=== PATIENT | male | born 1945 | race Caucasian/White ===

== ENCOUNTER 2020-07-21 00:02 | Observation (INO) | payer MEDICARE, SELFPAY ==
[2020-07-21] VITALS (15 sets, daily range): BP systolic 101–161; BP diastolic 58–106; PULSE 60–94; RESP 14–20; TEMP 36.6–37.1; O2SAT 91–100; BMI 22.1; BMI 21.4
--- NOTE | 2020-07-21 00:34 | CT_ITS ---
PROCEDURE: CT ABDOMEN PELVIS W CON CLINICAL INDICATION: distened abd. Abdominal tenderness and bloating COMPARISON: CT ABDPELW/O CT ABD PELVIS W/O CONTRAST from 12/10/[address] abdomen pelvis wo con from 03/10/2018 TECHNIQUE: IV Contrast: 75ML Isovue 370 Oral Contrast None Axial images obtained with sagittal and coronal reformats. All CT scans at the facility use one or more dose reduction, viz: automated exposure control, ma/kV adjustment per patient size (including targeted exams where dose is matched to indication, i.e. head), or iterative reconstruction technique. FINDINGS: LOWER THORAX: Consolidation is present in the lung bases posteriorly on both sides. There is elevated right hemidiaphragm with bowel interposition. ABDOMEN & PELVIS: The liver, spleen, adrenal glands, pancreas, have an unremarkable appearance. There is a 4 mm nonobstructing stone in the lower pole of the right kidney. Bilateral renal cysts are present the largest in the mid aspect of the left kidney anteriorly measuring up to 5 cm. No hydronephrosis. No ureteral calculi. There is a Siddiqui catheter present. There is diffuse gaseous distention of the large bowel extending from the rectum to the cecum [place] with redundancy of the colon. The appendix is not clearly delineated. There are scattered air-fluid levels within the colon.. Suprapubic catheter is present within a decompressed urinary bladder. There is scoliosis of the lumbar spine with pelvic tilt. Heterogeneous area of sclerosis involves the right iliac crest not significantly changed. IMPRESSION: Moderate diffuse distention of the colon with scattered air-fluid levels consistent with colonic ileus Bilateral lower lobe consolidation/volume loss posteriorly. Dictated by: Jose Raul Spencer MD 07/21/2020 06:46 Jose Raul Spencer MD in [place] 07/21/2020 06:46
--- NOTE | 2020-07-21 00:37 | HMH.EDNVD ---
ED Disposition Clinical Impression: Ileus, Pseudo-obstruction of colon, SIRS (systemic inflammatory response syndrome) Disposition: Admitted as Observation Condition on Discharge: Fair Instructions: DI for Acute Abdominal Pain Referrals: Rayshawn Monterroso MD [Primary Care Provider] - - Critical Care Critical Care Time: No Attestation: On 07/21/20, the high probability of a clinically significant, sudden or life threatening deterioration of the following system(s) required my full and direct attention, intervention and personal management. The time I documented below is in addition to time spent performing reported procedures but includes the following listed in this critical care notation. Medical Decision Making - Medical Records Medical records reviewed: Yes: I reviewed the patient's medical records. - Phi Inquiry Pt receiving controlled substance: No Vital Signs: 07/21/20 00:03 07/21/20 00:34 07/21/20 00:56 Pulse Rate [Left Radial] 94 H 79 71 Respiratory Rate 19 14 17 Blood Pressure [Right Arm] 148/100 H 122/79 118/73 Blood Pressure Mean [Right Arm] 116 93 88 Blood Pressure Source [Right Arm] Automatic Cuff Automatic Cuff Automatic Cuff Blood Pressure Position [Right Arm] Supine Sitting 02 Sat by Pulse Oximetry 100 96 96 Oxygen Delivery Method Room Air Room Air 07/21/20 02:03 07/21/20 02:30 Pulse Rate [Left Radial] 77 83 Respiratory Rate 16 Blood Pressure [Right Arm] 161/84 H 143/106 H Blood Pressure Mean [Right Arm] 109 118 Blood Pressure Source [Right Arm] Automatic Cuff Blood Pressure Position [Right Arm] Sitting Supine 02 Sat by Pulse Oximetry 95 95 Oxygen Delivery Method Room Air Room Air - Lab Data Lab results reviewed: Yes: I reviewed the patient's lab results. Lab Results 07/21/20 00:23: WBC 14.6 H, RBC 5.07, Hgb 15.8, Hct 48.3, MCV 95.2 H, MCH 31.2, MCHC 32.7, RDW 13.6, Plt Count 356, MPV 7.6, Neut % (Auto) 80.4 H, Lymph % (Auto) 12.8, [place] % (Auto) 5.6, Eos % (Auto) 0.8, Baso % (Auto) 0.3, Neut # (Auto) 11.7 H, Lymph # (Auto) 1.9, [place] # (Auto) 0.8, Eos # (Auto) 0.1, Baso # (Auto) 0.1, ESR 61 H 07/21/20 00:23: Sodium 137, Potassium 3.6, Chloride 97 L, Carbon Dioxide 27, Anion Gap 16.6 H, BUN 34 H, Creatinine 1.10, Estimated Creat Clear 57, Estimated GFR 65, Est GFR ( Amer) 79, Glucose 138 H, Calcium 10.3 H, Total Bilirubin 0.9, AST 27, ALT 15, Alkaline Phosphatase 89, C-Reactive Protein 73.6 H, Total Protein 9.4 H, Albumin 4.8, Globulin 4.6 H, Albumin/Globulin Ratio 1.0 L, Amylase 59, Lipase 83 07/21/20 00:23: Lactate 1.7 07/21/20 00:23: Procalcitonin 0.092 07/21/20 00:23: SARS-CoV-2 IgG Ab (Rapid) Positive A, SARS-CoV-2 IgM Ab (Rapid) Negative 07/21/20 02:14: Urine Color Yellow, Urine Appearance Slightly cloudy, Urine pH 6.0, Ur Specific [place] <= 1.005, Urine Protein 1+, Urine Glucose (UA) Negative, Urine Ketones Negative, Urine Blood 3+, Urine Nitrate Negative, Urine Bilirubin Negative, Urine Urobilinogen 0.2, Ur Leukocyte Esterase 1+ A, Urine RBC 5-10, Urine WBC 5-10, Ur Squamous Epith Cells 3-5, Amorphous Sediment 2+, Urine Bacteria 1+, Urine Mucus 1+ Result diagrams: 07/21/20 00:23 07/21/20 00:23 Orders (Tests/Meds): ED MEDICATIONS Generic Name Dose Route Start Last Admin Trade Name Freq PRN Reason Stop Dose Admin Sodium Chloride 1,000 mls @ 999 mls/hr 07/21/20 01:00 07/21/20 00:57 Sod Chlor 0.9% 1000ml Bag IV 07/21/20 02:00 999 mls/hr .Q1H1M INGRID Administration Discontinued Medications Generic Name Dose Route Start Last Admin Trade Name Freq PRN Reason Stop Dose Admin Bisacodyl 10 mg 07/21/20 02:11 07/21/20 02:12 Bisacodyl 10mg Supp RC 07/21/20 02:12 10 mg ONCE ONE Administration Iopamidol 75 ml 07/21/20 01:44 07/21/20 01:45 Iopamidol-370 (76%);100ml Bottle IV 07/21/20 01:45 75 ml ONCE ONE Administration Sodium Chloride 10 ml 07/21/20 01:44 07/21/20 01:45 Sodium Chloride 0.9% 10ml Syr (Rad Only) IV
--- NOTE | 2020-07-21 00:44 | PC.NURSE ---
pt at bedside. states to staff patient hasn't had a bath in two weeks. noted breakdown to perianal area. informed .
[2020-07-21 00:46] LABS: Basophils # 0.1 K/mm3 (0-0.2); Basophils % 0.3 % (0.1-2.0); Eosinophils # 0.1 K/mm3 (0.0-0.4); Eosinophils % 0.8 % (0.1-12.0); Hematocrit 48.3 % (42.0-52.0); Hemoglobin 15.8 g/dL (14.1-18.0); Lymphocytes # 1.9 K/mm3 (0.7-4.5); Lymphocytes % 12.8 % (10-50); Mean Corpuscular HGB Conc 32.7 g/dL (31.8-35.4); Mean Corpuscular Hemoglobin 31.2 pg (27.0-31.2); Mean Corpuscular Volume 95.2 fl (80-94); Mean Platelet Volume 7.6 fl (7.4-10.4); Monocytes # 0.8 K/mm3 (0.1-1.0); Monocytes % 5.6 % (1.7-9.3); Neutrophils # 11.7 K/mm3 (1.8-7.8); Neutrophils % 80.4 % (37.0-80.0); Platelet Count 356 K/mm3 (142-424); Red Blood Count 5.07 M/mm3 (4.60-6.20); Red Cell Distribution Width 13.6 % (11.5-17.5); White Blood Count 14.6 K/mm3 (4.8-10.8)
[2020-07-21 00:49] LABS: Alanine Aminotransferase 15 U/L (12-78); Albumin Level 4.8 g/dl (3.5-5.0); Alkaline Phosphatase 89 U/L (38-126); Amylase 59 U/L (30-110); Anion Gap 16.6 mEq/L (5-15); Aspartate Amino Transferase 27 U/L (17-59); Bilirubin,Total 0.9 mg/dl (0.2-1.3); Blood Urea Nitrogen 34 mg/dl (9-20); Calcium 10.3 mg/dl (8.4-10.2); Carbon Dioxide 27 mmol/L (22.0-30.0); Chloride 97 mmol/L (98-107); Creatinine Clearance Estimated 57 mL/min (50-200); Estimated Glomerular Filt Rate 65 ml/min (>60); GFR (African American) 79 ML/MIN (>60); Globulin 4.6 g/dL (1.3-3.2); Glucose 138 mg/dl (74-100); Lipase 83 U/L (23-300); Potassium 3.6 mmoL/L (3.5-5.1); Sodium 137 mmol/L (136-145); Total Protein,Serum 9.4 g/dl (6.3-8.2)
[2020-07-21 00:53] LABS: Lactic Acid 1.7 mmol/L (0.7-2.1)
[2020-07-21 00:55] LABS: C-Reactive Protein 73.6 mg/L (0-4)
[2020-07-21 01:09] LABS: Procalcitonin 0.092 ng/mL (0.0-2.0)
[2020-07-21 01:28] LABS: Coronavirus 19 IgG Antibody Positive (Negative); Coronavirus 19 IgM Antibody Negative (Negative)
[2020-07-21 01:31] LABS: Erythrocyte Sedimentation Rate 61 mm/hr (0-20)
--- NOTE | 2020-07-21 01:55 | PC.NURSE ---
pt back from RAD
[2020-07-21 02:23] LABS: Microscopic, Urine URINE MICROSCOPIC (MICROSCOPIC)
[2020-07-21 02:31] LABS: Bilirubin,Urine Negative (Negative); Blood, Urine 3+ (Negative); Color,Urine YELLOW (Yellow); Glucose,Urine (UA) Negative (Negative); Ketones,Urine Negative (Negative); Leukocyte Esterase,Urine 1+ (Negative); Nitrate,Urine Negative (Negative); Protein,Urine 1+ (Negative); Specific Gravity, Urine <= 1.005 (1.005-1.030); Urobilinogen,Urine 0.2 EU/dl (0.2)
[2020-07-21 02:38] LABS: Appearance,Urine Slightly Cloudy (Clear)
[2020-07-21 02:42] LABS: Amorphous Sediment,Urine 2+ /lpf; Bacteria,Urine 1+ /lpf; Mucus,Urine 1+ /lpf
--- NOTE | 2020-07-21 02:56 | PC.NURSE ---
discussing admitting patient with dr berman at this time
--- NOTE | 2020-07-21 03:10 | PC.NURSE ---
[facility]
--- NOTE | 2020-07-21 05:03 | PC.NURSE ---
PT ARRIVED TO FLOOR VIA STRETCHER @ 1811
--- NOTE | 2020-07-21 07:08 | P.CONPHA_ITS ---
[facility] Pharmacy VTE Monitoring - Patient Demographics Admission date: 07/21/20 Report Date: 07/21/20 Time: 07:08 Allergies/Adverse Reactions: Patient Allergies No Known Allergies Allergy (Verified 05/01/18 09:12) Height: 1.75 m Weight: 65.941 kg Patient Problems: Current Active Problems Ileus (Acute) Pseudo-obstruction of colon (Acute) SIRS (systemic inflammatory response syndrome) (Acute) - VTE Risk Labs: VTE Related Lab Results Hgb 15.8 g/dL (14.1-18.0) 07/21/20 00:23 Hct 48.3 % (42.0-52.0) 07/21/20 00:23 Plt Count 356 K/mm3 (142-424) 07/21/20 00:23 BUN 34 mg/dl (9-20) H 07/21/20 00:23 Creatinine 1.10 mg/dl (0.66-1.25) 07/21/20 00:23 Estimated Creat Clear 57 mL/min (50-200) 07/21/20 00:23 VTE Score: 4 VTE Risk Level: Low Risk - Prophylaxis VTE Prophylaxis Ordered?: Yes Types of VTE Prophylaxis: TEDS Knee High Location of Applied Device: Bilateral Lower Extremeties
--- NOTE | 2020-07-21 07:23 | PC.NURSE ---
Dr. Liu Notified
--- NOTE | 2020-07-21 07:34 | PC.NURSE ---
Pt is alert to self. Pt can answer yes and no questions but is not consistently answering them. All four extremities present w/ mild weakness. Lung sounds have audible wheezing noted t/o. Hyperactive bowel sounds in all 4 quads. Dark brown, loose stools noted this shift. remains @ bedside. Will continue to monitor.
--- NOTE | 2020-07-21 08:06 | PC.WOUNDNOTE ---
Wound Location: rt gluteus Length:3 cm Width:1 cm Inflammation/swelling Y/N:yes Pain and/or tenderness Y/N:yes Color: Clear [place] Red Yellow Odor Y/N:no
--- NOTE | 2020-07-21 08:08 | PC.WOUNDNOTE ---
Wound Location: rt elbow Length:2 cm Width:1.5 cm Inflammation/swelling Y/N:no Pain and/or tenderness Y/N:yes \ Color: [place] Red Odor Y/N:no
[2020-07-21 08:16] LABS: Basophils % 0.4 % (0.1-2.0); Eosinophils # 0.2 K/mm3 (0.0-0.4); Eosinophils % 1.4 % (0.1-12.0); Hematocrit 39.2 % (42.0-52.0); Lymphocytes # 1.6 K/mm3 (0.7-4.5); Lymphocytes % 14.2 % (10-50); Mean Corpuscular HGB Conc 30.8 g/dL (31.8-35.4); Mean Corpuscular Hemoglobin 29.3 pg (27.0-31.2); Mean Platelet Volume 7.7 fl (7.4-10.4); Monocytes # 0.7 K/mm3 (0.1-1.0); Monocytes % 6.2 % (1.7-9.3); Neutrophils # 8.6 K/mm3 (1.8-7.8); Neutrophils % 77.9 % (37.0-80.0); Platelet Count 278 K/mm3 (142-424); Red Blood Count 4.12 M/mm3 (4.60-6.20); Red Cell Distribution Width 13.7 % (11.5-17.5)
[2020-07-21 08:21] LABS: Hemoglobin 12.1 g/dL (14.1-18.0)
--- NOTE | 2020-07-21 08:27 | HMH.HP ---
*Admission Date: 07/21/20 <CarmineHeidi 07/21/20 08:33> *Chief complaint: Ileus <Rambo Lou07/21/20 08:33> *History of present illness: Mr. Herzog is a 75yo white male with history of hemorrhagic CVA with residual deficits, HTN, BPH, and PEG tube who is minimally verbal. He was brought to [facility] ED yesterday evening after his noticed increasing distention and firmness of his abdomen at home. His reported two loose stools home earlier in the day without vomiting. Upon arrival, he was painful with abdominal palpation. WBC was elevated at 14.6. CT of the abdomen and pelvis showed moderate diffuse distention of the colon with scattered air-fluid levels consistent with colonic ileus and bilateral lower lobe consolidation/volume loss posteriorly. He was admitted for further evaluation and surgical consultation. This morning, he is resting quietly. His bowels have moved. He denies any pain with abdominal palpation. <Heidi Lou 07/21/20 08:47> [facility] History Medical History: Reports:: BPH, Cerebrovascular Accident, Hypertension Denies:: Diabetes Mellitus Type 1, Diabetes Mellitus Type 2 <Rambo Lou07/21/20 08:33> *Have you ever received a pneumonia vaccine?: No <Rambo Lou07/21/20 08:33> *Have you received a flu vaccine this season?: No <Heidi Lou 07/21/20 08:33> Other Medical History: Reports: Arthritis <Rambo Lou07/21/20 08:33> Other Surgeries: Yes: Other <Heidi Lou 07/21/20 08:33> - *Social History Last grade of school completed: High school graduate <Heidi Lou 07/21/20 08:33> Smoking Status: Never smoker <Heidi Lou 07/21/20 08:33> Alcohol Intake: never <Heidi Lou 07/21/20 08:33> *Occupational Status:: disabled <Heidi Lou 07/21/20 08:33> Household Members: spouse <Heidi Lou 07/21/20 08:33> *Travel in the last 8 weeks: None <Heidi Lou 07/21/20 08:33> Family Hx:: Asthma, Stroke <Heidi Lou - 07/21/20 08:33> Review of Systems - Review of Systems Review of systems:: unable to obtain <Heidi Lou - 07/21/20 08:47> - *Gastrointestinal Reports abdominal pain, Reports change in stools, Reports loose stools <Heidi Lou 07/21/20 08:47> Comments: abdominal distention and firmness <Heidi Lou 07/21/20 08:47> - *Neurologic Denies seizure-like activity <Heidi Lou - 07/21/20 08:33> Comments: right sided residual CVA deficits <Heidi Lou 07/21/20 08:47> Meds Home Medications Medication Instructions Recorded Confirmed Type No Known Home Medications 07/21/20 07/21/20 History <Rayshawn Monterroso - 07/21/20 13:12> Allergies Allergy/AdvReac Type Severity Reaction Status Date / Time No Known Allergies Allergy Verified 05/01/18 09:12 <Rayshawn Monterroso - 07/21/20 13:12> Exam Vital signs and Labs for Last 24 Hours: Temp Pulse Resp BP Pulse Ox 98.2 F 71 20 129/69 96 07/21/20 07:33 07/21/20 07:33 07/21/20 08:40 07/21/20 07:33 07/21/20 07:33 Laboratory Results - last 24 hr 07/21/20 00:23: WBC 14.6 H, RBC 5.07, Hgb 15.8, Hct 48.3, MCV 95.2 H, MCH 31.2, MCHC 32.7, RDW 13.6, Plt Count 356, MPV 7.6, Neut % (Auto) 80.4 H, Lymph % (Auto) 12.8, [place] % (Auto) 5.6, Eos % (Auto) 0.8, Baso % (Auto) 0.3, Neut # (Auto) 11.7 H, Lymph # (Auto) 1.9, [place] # (Auto) 0.8, Eos # (Auto) 0.1, Baso # (Auto) 0.1, ESR 61 H 07/21/20 00:23: Sodium 137, Potassium 3.6, Chloride 97 L, Carbon Dioxide 27, Anion Gap 16.6 H, BUN 34 H, Creatinine 1.10, Estimated Creat Clear 57, Estimated GFR 65, Est GFR ( Amer) 79, Glucose 138 H, Calcium 10.3 H, Total Bilirubin 0.9, AST 27, ALT 15, Alkaline Phosphatase 89, C-Reactive Protein 73.6 H, Total Protein 9.4 H, Albumin 4.8, Globulin 4.6 H, Albumin/Globulin Ratio 1.0 L, Amylase 59, Lipase 83 07/21/20 00:23: Lactate 1.7 07/21/20 00:23: Procalcitonin 0.092 07/21/20 00:23: SARS-CoV-2 IgG Ab (Rapid) Positive A, SARS-CoV-2 IgM Ab (Rapid) Negative 07/21/20 02:14: Urine Color Yellow, Urine Appearance Slightly cloudy, Ur
--- NOTE | 2020-07-21 08:34 | XR_ITS ---
PROCEDURE: XR CHEST PORTABLE CLINICAL HISTORY: ileus Shortness of air COMPARISON: CR CXR2 CHEST-AP VIEW ONLY from 12/10/2015 CR CXR1 CHEST-PORTABLE from 12/12/2015 CR CXR1 CHEST-PORTABLE from 02/05/2016 FINDINGS: The cardiomediastinal silhouette and pulmonary vascularity are within normal limits. Patchy density is present in the right lung base medially consistent with an area of atelectasis or infiltrate. The right hemidiaphragm is slightly elevated with bowel interposition on the right. Left lung is clear. No acute bony abnormalities. IMPRESSION: Right basilar atelectasis or infiltrate. Dictated by: Jose Raul Spencer MD 07/21/2020 10:26 Jose Raul Spencer MD in [place] 07/21/2020 10:26
--- NOTE | 2020-07-21 08:40 | PC.NURSE ---
NO DISTRESS NOTED UPON ASSESSMENT. SUPRAPUBIC CATH IN PLACE DRAINING YELLOW URINE. PATIENT ABLE TO ANSWER YES/'NO QUESTIONS AT TIMES. NODS HEAD YES/NO FOR QUESTIONS. PT. DENIES PAIN. AT BEDSIDE. PATIENT LEGS CONTRACTED FROM STROKE. Q2 TURN FOR THIS REASON. PT. DOES LIKE TO BE ON RIGHT SIDE. NO DISTRESS NOTED. CALL LIGHT WITHIN REACH .
--- NOTE | 2020-07-21 08:53 | HMH.GSCON ---
*Admission Date: 07/21/20 *Reason for consult:: Colonic ileus *History of present illness: This is a 75-year-old gentleman seen in consultation from the service of Dr. Monterroso for evaluation regarding possible colonic ileus. He presents the emergency department overnight with increasing abdominal distention. Loose stools had also been noted per his . Since admission he has continued to have bowel function and his abdominal distention has improved. Reportedly, he continues to have very loose stools . Forwarded from admission H&P: Mr. Herzog is a 75yo white male with history of hemorrhagic CVA with residual deficits, HTN, BPH, and PEG tube who is minimally verbal. He was brought to [facility] ED yesterday evening after his noticed increasing distention and firmness of his abdomen at home. His reported two loose stools home earlier in the day without vomiting. Upon arrival, he was painful with abdominal palpation. WBC was elevated at 14.6. CT of the abdomen and pelvis showed moderate diffuse distention of the colon with scattered air-fluid levels consistent with colonic ileus and bilateral lower lobe consolidation/volume loss posteriorly. He was admitted for further evaluation and surgical consultation. This morning, he is resting quietly. His bowels have moved. He denies any pain with abdominal palpation. Review of Systems - Review of Systems Review of systems:: unable to obtain - *Neurologic Denies seizure-like activity [facility] History Medical History: Reports:: BPH, Cerebrovascular Accident, Hypertension Denies:: Diabetes Mellitus Type 1, Diabetes Mellitus Type 2 *Have you ever received a pneumonia vaccine?: No *Have you received a flu vaccine this season?: No Other Medical History: Reports: Arthritis Other Surgeries: Yes: Other - *Social History Last grade of school completed: High school graduate Smoking Status: Never smoker Alcohol Intake: never *Occupational Status:: disabled Household Members: spouse *Travel in the last 8 weeks: None Family Hx:: Asthma, Stroke Meds Home Medications Medication Instructions Recorded Confirmed Type No Known Home Medications 07/21/20 07/21/20 History Allergies Allergy/AdvReac Type Severity Reaction Status Date / Time No Known Allergies Allergy Verified 05/01/18 09:12 Exam Vital signs and Labs for Last 24 Hours: Temp Pulse Resp BP Pulse Ox 98.2 F 71 18 129/69 96 07/21/20 07:33 07/21/20 07:33 07/21/20 07:33 07/21/20 07:33 07/21/20 07:33 Laboratory Results - last 24 hr 07/21/20 00:23: WBC 14.6 H, RBC 5.07, Hgb 15.8, Hct 48.3, MCV 95.2 H, MCH 31.2, MCHC 32.7, RDW 13.6, Plt Count 356, MPV 7.6, Neut % (Auto) 80.4 H, Lymph % (Auto) 12.8, [place] % (Auto) 5.6, Eos % (Auto) 0.8, Baso % (Auto) 0.3, Neut # (Auto) 11.7 H, Lymph # (Auto) 1.9, [place] # (Auto) 0.8, Eos # (Auto) 0.1, Baso # (Auto) 0.1, ESR 61 H 07/21/20 00:23: Sodium 137, Potassium 3.6, Chloride 97 L, Carbon Dioxide 27, Anion Gap 16.6 H, BUN 34 H, Creatinine 1.10, Estimated Creat Clear 57, Estimated GFR 65, Est GFR ( Amer) 79, Glucose 138 H, Calcium 10.3 H, Total Bilirubin 0.9, AST 27, ALT 15, Alkaline Phosphatase 89, C-Reactive Protein 73.6 H, Total Protein 9.4 H, Albumin 4.8, Globulin 4.6 H, Albumin/Globulin Ratio 1.0 L, Amylase 59, Lipase 83 07/21/20 00:23: Lactate 1.7 07/21/20 00:23: Procalcitonin 0.092 07/21/20 00:23: SARS-CoV-2 IgG Ab (Rapid) Positive A, SARS-CoV-2 IgM Ab (Rapid) Negative 07/21/20 02:14: Urine Color Yellow, Urine Appearance Slightly cloudy, Urine pH 6.0, Ur Specific [place] <= 1.005, Urine Protein 1+, Urine Glucose (UA) Negative, Urine Ketones Negative, Urine Blood 3+, Urine Nitrate Negative, Urine Bilirubin Negative, Urine Urobilinogen 0.2, Ur Leukocyte Esterase 1+ A, Urine RBC 5-10, Urine WBC 5-10, Ur Squamous Epith Cells 3-5, Amorphous Sediment 2+, Urine Bacteria 1+, Urine Mucus 1+ 07/21/20 08:00: WBC 11.0 H, RBC 4.12 L, Hgb 12.1 L D, Hct 39.2 L, MCV 95.0 H, MCH 29.3, MCHC 30.8
[2020-07-21 09:35] LABS: Chloride 103 mmol/L (98-107); Sodium 136 mmol/L (136-145)
[2020-07-21 09:36] LABS: Potassium 3.6 mmoL/L (3.5-5.1)
[2020-07-21 09:39] LABS: Anion Gap 9.6 mEq/L (5-15); Blood Urea Nitrogen 31 mg/dl (9-20); Carbon Dioxide 27 mmol/L (22.0-30.0); Creatinine Clearance Estimated 60 mL/min (50-200); Estimated Glomerular Filt Rate 110 ml/min (>60); GFR (African American) 133 ML/MIN (>60); Glucose 92 mg/dl (74-100)
[2020-07-21 09:41] LABS: Calcium 8.7 mg/dl (8.4-10.2)
--- NOTE | 2020-07-21 19:48 | PC.NURSE ---
SUPRAPUBIC CATH IN [place] DRAINING CLEAR YELLOW URINE, PT DENIES PAIN THIS SHIFT, NO BM NOTED, HAS BEEN TURNED Q2 HOURS, NO NEEDS AT THIS TIME,
[2020-07-22 04:00] VITALS: BP 156/85; PULSE 74; RESP 20; TEMP 36.7; O2SAT 95
--- NOTE | 2020-07-22 04:22 | PC.NURSE ---
pt is alert to self and can answer yes or no. lungs diminshed t/o.suprapubic cath draining yellow urine. pt rested quietly this shift. at bedside
[2020-07-22 05:17] VITALS: BMI 21.8
--- NOTE | 2020-07-22 07:11 | HMH.GSPN ---
Subjective Patient reports: no new complaints, feels better (The patient states that she hopes we can go home soon .) Progress Note: A&P (1) Ileus Status: Acute Assessment and plan: Overall, he has shown improvement since admission. He will likely require long-term therapy for what is likely somewhat of a chronic colonic ileus. He would also likely benefit from outpatient colonoscopy in the relatively near future. (2) Pyuria Status: Acute (3) History of CVA with residual deficit Status: Acute (4) Pseudo-obstruction of colon Status: Acute (5) SIRS (systemic inflammatory response syndrome) Status: Acute (6) Diarrhea Status: Acute Assessment and plan: Follow-up diarrhea panel (7) Neurogenic bladder Status: Acute (8) Indwelling catheter present on admission Status: Acute (9) Pulmonary atelectasis Status: Acute Exam Vital signs and Labs for Last 24 Hours: Temp Pulse Resp BP Pulse Ox 98.1 F 74 20 156/85 H 95 07/22/20 04:00 07/22/20 04:00 07/22/20 04:00 07/22/20 04:00 07/22/20 04:00 Laboratory Results - last 24 hr 07/21/20 08:00: WBC 11.0 H, RBC 4.12 L, Hgb 12.1 L D, Hct 39.2 L, MCV 95.0 H, MCH 29.3, MCHC 30.8 L, RDW 13.7, Plt Count 278, MPV 7.7, Neut % (Auto) 77.9, Lymph % (Auto) 14.2, [place] % (Auto) 6.2, Eos % (Auto) 1.4, Baso % (Auto) 0.4, Neut # (Auto) 8.6 H, Lymph # (Auto) 1.6, [place] # (Auto) 0.7, Eos # (Auto) 0.2, Baso # (Auto) 0.0 07/21/20 08:00: Sodium 136, Potassium 3.6, Chloride 103, Carbon Dioxide 27, Anion Gap 9.6, BUN 31 H, Creatinine 0.70 D, Estimated Creat Clear 60, Estimated GFR 110, Est GFR ( Amer) 133 D, Glucose 92 D, Calcium 8.7 D I & O for Last 24 hours: Intake & Output 07/19/20 07/20/20 07/21/20 12/23/20 11:59 11:59 11:59 11:59 Intake Total 0 / 0 662 / 662 Output Total 875 / 875 Balance 0 / 0 -213 / -213 Weight 145 lb 6 oz 147 lb 7 oz Microbiology Reports for the Last 24 Hours: Microbiology 07/21/20 02:14 Urine,Clean Catch Urine Culture - Preliminary NO GROWTH AFTER 24 HOURS - Constitutional no acute distress - *Routine Respiratory Exam Absent: respiratory distress - *Routine Cardiovascular Exam Present: RRR
[2020-07-22 08:00] VITALS: BP 139/76; PULSE 80; RESP 18; TEMP 36.3; O2SAT 94
--- NOTE | 2020-07-22 08:00 | PC.NURSE ---
at bedside this am feeding pt meals, no needs at his time, will continue to monitor
--- NOTE | 2020-07-22 08:17 | HMH.ACPN2 ---
<Day Leon - Last Filed: 07/22/20 08:18> Internal Medicine - PN: Subj *Date: 07/22/20 *Time: 08:18 Interval history: Patient states he is feeling better today. He had a bowel movement last night but none today. His abdominal pain is better. He ate some breakfast and slept decently last night. He wants to go home today. Exam Vital signs and Labs for Last 24 Hours: Temp Pulse Resp BP Pulse Ox 97.4 F L 80 18 139/76 94 L 07/22/20 08:00 07/22/20 08:00 07/22/20 08:00 07/22/20 08:00 07/22/20 08:00 Laboratory Results - last 24 hr 07/21/20 08:00: WBC 11.0 H, RBC 4.12 L, Hgb 12.1 L D, Hct 39.2 L, MCV 95.0 H, MCH 29.3, MCHC 30.8 L, RDW 13.7, Plt Count 278, MPV 7.7, Neut % (Auto) 77.9, Lymph % (Auto) 14.2, [place] % (Auto) 6.2, Eos % (Auto) 1.4, Baso % (Auto) 0.4, Neut # (Auto) 8.6 H, Lymph # (Auto) 1.6, [place] # (Auto) 0.7, Eos # (Auto) 0.2, Baso # (Auto) 0.0 07/21/20 08:00: Sodium 136, Potassium 3.6, Chloride 103, Carbon Dioxide 27, Anion Gap 9.6, BUN 31 H, Creatinine 0.70 D, Estimated Creat Clear 60, Estimated GFR 110, Est GFR ( Amer) 133 D, Glucose 92 D, Calcium 8.7 D I & O for Last 24 hours: Intake & Output 07/19/20 07/20/20 07/21/20 07/22/20 11:59 11:59 11:59 11:59 Intake Total 0 / 0 662 / 662 Output Total 875 / 875 Balance 0 / 0 -213 / -213 Weight 145 lb 6 oz 147 lb 7 oz Microbiology Reports for the Last 24 Hours: Microbiology 07/21/20 02:14 Urine,Clean Catch Urine Culture - Preliminary NO GROWTH AFTER 24 HOURS - Constitutional no acute distress - *Routine Respiratory Exam Present: decreased breath sounds, rhonchi - *Routine Cardiovascular Exam Present: RRR - *Routine Abdominal Exam Present: soft, normoactive bowel sounds. Absent: tenderness - *Routine Extremities Exam Absent: cyanosis, clubbing, edema - *Routine Skin Exam Present: warm. Absent: rash - *Routine Neurological Exam Present: alert, oriented X3 Assessment and Plan (1) Ileus Status: Acute Category: Medical Code(s): K56.7 - Ileus, unspecified (2) Pyuria Status: Acute Category: Medical Code(s): R82.81 - Pyuria (3) History of CVA with residual deficit Status: Acute Category: Medical Code(s): I69.30 - Unspecified sequelae of cerebral infarction (4) Pseudo-obstruction of colon Status: Acute Category: Medical Code(s): K59.81 - Bc syndrome (5) SIRS (systemic inflammatory response syndrome) Status: Acute Category: Medical Code(s): R65.10 - Systemic inflammatory response syndrome (SIRS) of non-infectious origin without acute organ dysfunction (6) Diarrhea Status: Acute Category: Medical Code(s): R19.7 - Diarrhea, unspecified (7) Neurogenic bladder Status: Acute Category: Medical Code(s): N31.9 - Neuromuscular dysfunction of bladder, unspecified (8) Indwelling catheter present on admission Status: Acute Category: Medical Code(s): Z96.0 - Presence of urogenital implants (9) Pulmonary atelectasis Status: Acute Category: Medical Code(s): J98.11 - Atelectasis - Assessment and plan all Dx Assessment and Plan for all problems:: Patient stable to be discharged home today. He will need his Siddiqui replaced before going home and will need an order for continued home health. He will be discharged home on a [place]. <Rayshawn Monterroso - Last Filed: 07/22/20 12:22> Internal Medicine - PN: Subj *Date: 07/22/20 *Time: 12:20 Exam Vital signs and Labs for Last 24 Hours: Temp Pulse Resp BP Pulse Ox 97.4 F L 80 18 139/76 94 L 07/22/20 08:00 07/22/20 08:00 07/22/20 08:00 07/22/20 08:00 07/22/20 08:00 I & O for Last 24 hours: Intake & Output 07/20/20 07/21/20 07/22/20 07/23/20 11:59 11:59 11:59 11:59 Intake Total 0 / 0 1022 / 1022 Output Total 875 / 875 Balance 0 / 0 147 / 147 Weight 145 lb 6 oz 147 lb 7 oz Microbiology Reports for the Last 24 Hours:
--- NOTE | 2020-07-22 09:16 | SW/DCPLANNER ---
Addendum entered by Jodi Beaulieu 07/22/20 10:29: Ta with [facility] has stated that patient information was received and home health services will resume tomorrow. I have made patients nurse aware of situation. Patient will discharge home today. Original Note: This patient will discharge home with his today. provides all care for this patient at home and no further DME is needed. Patient is currently established with [facility]. Patient information has been faxed to [facility]. I will follow up once patient information is reviewed.
--- NOTE | 2020-07-22 12:50 | PC.NURSE ---
HOME HEALTH TO PROVIDE CATHETER CARE FOR SUPRA PUBIC CATHETER.
--- NOTE | 2020-07-22 16:28 | HMH.DCSUM ---
General - General Admission date:: 07/21/20 <Rayshawn Monterroso - 08/02/20 22:23> 07/21/20 <Day Leon - 07/22/20 16:33> Discharge date: 07/22/20 <Day Leon - 07/22/20 16:33> HPI HPI: Mr. Herzog is a 75yo white male with history of hemorrhagic CVA with residual deficits, HTN, BPH, and PEG tube who is minimally verbal. He was brought to [facility] ED yesterday evening after his noticed increasing distention and firmness of his abdomen at home. His reported two loose stools home earlier in the day without vomiting. Upon arrival, he was painful with abdominal palpation. WBC was elevated at 14.6. CT of the abdomen and pelvis showed moderate diffuse distention of the colon with scattered air-fluid levels consistent with colonic ileus and bilateral lower lobe consolidation/volume loss posteriorly. He was admitted for further evaluation and surgical consultation. This morning, he is resting quietly. His bowels have moved. He denies any pain with abdominal palpation. <Day Leon - 07/22/20 16:33> Hospital Course Hospital Course: His abdominal exam improved after the patient received an enema. The etiology of his ileus was unclear but was possibly related to infection. A diarrhea panel was ordered. He also had some pyuria and a urine culture was ordered as well. His CT scan did make some note of consolidation in the lower lung mann and he is known to have some bronchiectasis. A repeat chest x-ray was ordered he was started on Rocephin and surgery was consulted. His chest x-ray showed right basilar atelectasis or infiltrate. He was seen in consultation by Dr. Liu who felt there was no immediate indication for endoscopic decompression. He thought the patient should get suppositories, enemas, or digital stimulation as needed. By 07/22/2020, the patient was feeling better. He had had a bowel movement and his abdominal pain improved. He was able to eat and sleep and wanted to go home. His urine showed no growth after [address] Liu felt he may have somewhat of a chronic colonic ileus and would benefit fit from an outpatient colonoscopy in the relatively near future. The patient was stable to be discharged home and he was sent home on Zithromax for 5 days due to the infiltrate noted on chest x-ray. <CarolynDay - 07/22/20 16:33> Objective Vital signs: Temp Pulse Resp BP Pulse Ox 97.4 F L 80 18 139/76 94 L 07/22/20 08:00 07/22/20 08:00 07/22/20 08:00 07/22/20 08:00 07/22/20 08:00 <Rayshawn Monterroso - 08/02/20 22:23> Temp Pulse Resp BP Pulse Ox 97.4 F L 80 18 139/76 94 L 07/22/20 08:00 07/22/20 08:00 07/22/20 08:00 07/22/20 08:00 07/22/20 08:00 <Day Leon - 07/22/20 16:33> Narrative: - Constitutional no acute distress - *Routine Respiratory Exam Present: decreased breath sounds, rhonchi - *Routine Cardiovascular Exam Present: RRR - *Routine Abdominal Exam Present: soft, normoactive bowel sounds. Absent: tenderness - *Routine Extremities Exam Absent: cyanosis, clubbing, edema - *Routine Skin Exam Present: warm. Absent: rash - *Routine Neurological Exam Present: alert, oriented X3 <Day Leon - 07/22/20 16:33> Results Labs on day of discharge: Preliminary micro results at discharge 07/21/20 02:14 Urine Culture - Preliminary Urine,Clean Catch <Day Leon - 07/22/20 16:33> DS: Diagnosis - Discharge Diagnosis (1) Ileus Status: Acute (2) Pyuria Status: Acute (3) History of CVA with residual deficit Status: Acute (4) Pseudo-obstruction of colon Status: Acute (5) SIRS (systemic inflammatory response syndrome) Status: Acute (6) Diarrhea Status: Acute (7) Neurogenic bladder Status: Acute (8) Indwelling catheter present on admission Status: Acute (9) Pulmonary atelectasis Status: Acute (10) Pneumonia Status: Acute <Day Leon - 07/22/20 1
== END 2020-07-22 12:52 | disposition home health service (06) ==
LOC: ER 03:14 → 2ND 03:29
PROVIDERS: Admitting Provider Family Medicine; Emergency Provider Emergency Medicine; PCP Family Medicine; Visit Provider Family Medicine
DX: K56.7 Ileus, unspecified (principal); N31.9 Neuromuscular dysfunction of bladder, unspecified; R65.10 Systemic inflammatory response syndrome (SIRS) of non-infectious origin without acute organ dysfunction; R19.7 Diarrhea, unspecified; I10 Essential (primary) hypertension; K59.81 Ogilvie syndrome; J98.11 Atelectasis; J18.9 Pneumonia, unspecified organism; N40.0 Benign prostatic hyperplasia without lower urinary tract symptoms; Z93.1 Gastrostomy status; I69.151 Hemiplegia and hemiparesis following nontraumatic intracerebral hemorrhage affecting right dominant side; I69.120 Aphasia following nontraumatic intracerebral hemorrhage
CPT/HCPCS: 36415; 71045; 74177; 80048; 80053; 81001; 82150; 83605; 83690; 84145; 85025; 85651; 86140; 86328; 87040; 87086; 87088; 87186; 99284; G0378; Q9967

== ENCOUNTER 2021-01-11 13:26 | Inpatient (IN) | payer MEDICARE, SELFPAY ==
[2021-01-11] VITALS (12 sets, daily range): BP systolic 96–163; BP diastolic 55–90; PULSE 54–77; RESP 16–20; TEMP 36.2–38.3; O2SAT 91–98; BMI 21.4; BMI 24.2
[2021-01-11 13:42] LABS: Microscopic, Urine URINE MICROSCOPIC (MICROSCOPIC)
[2021-01-11 13:47] LABS: Appearance,Urine CLOUDY (Clear); Bilirubin,Urine Negative (Negative); Blood, Urine 3+ (Negative); Color,Urine DK YELLOW (Yellow); Glucose,Urine (UA) Negative (Negative); Ketones,Urine Negative (Negative); Leukocyte Esterase,Urine 2+ (Negative); Nitrate,Urine Negative (Negative); PH,Urine 7.5 (5.0-8.5); Protein,Urine 2+ (Negative)
[2021-01-11 14:12] LABS: Basophils % 0.1 % (0.1-2.0); Eosinophils % 0.2 % (0.1-12.0); Hematocrit 42.7 % (42.0-52.0); Hemoglobin 14.6 g/dL (14.1-18.0); Lymphocytes # 0.2 K/mm3 (0.7-4.5); Lymphocytes % 1.9 % (10-50); Mean Corpuscular HGB Conc 34.3 g/dL (31.8-35.4); Mean Corpuscular Hemoglobin 31.1 pg (27.0-31.2); Mean Corpuscular Volume 90.5 fl (80-94); Mean Platelet Volume 7.7 fl (7.4-10.4); Monocytes # 0.4 K/mm3 (0.1-1.0); Monocytes % 2.7 % (1.7-9.3); Neutrophils # 12.2 K/mm3 (1.8-7.8); Platelet Count 155 K/mm3 (142-424); Red Blood Count 4.72 M/mm3 (4.60-6.20); Red Cell Distribution Width 14.2 % (11.5-17.5); White Blood Count 12.9 K/mm3 (4.8-10.8)
[2021-01-11 14:13] LABS: Chloride 100 mmol/L (98-107); Sodium 137 mmol/L (136-145)
[2021-01-11 14:14] LABS: RBC,Urine TNTC #/hpf (0-3); WBC,Urine TNTC #/hpf (0-3)
[2021-01-11 14:15] LABS: Blood Urea Nitrogen 34 mg/dl (9-20); Creatinine Clearance Estimated 32 mL/min (50-200); Estimated Glomerular Filt Rate 35 ml/min (>60); GFR (African American) 42 ML/MIN (>60)
[2021-01-11 14:15] LABS: Bacteria,Urine 1+ /lpf; Squamous Epithelial Cell,Urine Occasional #/hpf (0-5)
[2021-01-11 14:16] LABS: Alanine Aminotransferase 20 U/L (12-78); Albumin Level 3.9 g/dl (3.5-5.0); Albumin/Globulin Ratio 1.1 (1.1-1.8); Alkaline Phosphatase 83 U/L (38-126); Anion Gap 13.5 mEq/L (5-15); Aspartate Amino Transferase 29 U/L (17-59); Bilirubin,Total 0.9 mg/dl (0.2-1.3); Calcium 8.3 mg/dl (8.4-10.2); Carbon Dioxide 26 mmol/L (22.0-30.0); Globulin 3.6 g/dL (1.3-3.2); Glucose 148 mg/dl (74-100); Total Protein,Serum 7.5 g/dl (6.3-8.2)
[2021-01-11 14:20] LABS: Lactic Acid 2.4 mmol/L (0.7-2.1)
[2021-01-11 14:21] LABS: MANUAL DIFFERENTIAL MANUAL DIFFERENTIAL (MANUAL DIFF)
[2021-01-11 14:22] LABS: Potassium 2.5 mmoL/L (3.5-5.1)
--- NOTE | 2021-01-11 14:27 | HMH.EDFEV ---
ED Disposition Clinical Impression: Hypokalemia Sepsis Qualifiers: Sepsis type: sepsis due to unspecified organism Sepsis acute organ dysfunction status: without acute organ dysfunction Qualified Code(s): A41.9 - Sepsis, unspecified organism UTI (urinary tract infection) Qualifiers: Urinary tract infection type: catheter-associated UTI Indwelling urinary catheter type: indwelling urethral catheter Encounter type: initial encounter Qualified Code(s): T83.511A - Infection and inflammatory reaction due to indwelling urethral catheter, initial encounter; N39.0 - Urinary tract infection, site not specified Disposition: Admitted As Inpatient Condition on Discharge: Fair Referrals: Rayshawn Monterroso MD [Primary Care Provider] - - Critical Care Critical Care Time: No Attestation: On 01/11/21, the high probability of a clinically significant, sudden or life threatening deterioration of the following system(s) required my full and direct attention, intervention and personal management. The time I documented below is in addition to time spent performing reported procedures but includes the following listed in this critical care notation. Medical Decision Making - Medical Records Medical records reviewed: Yes: I reviewed the patient's medical records. - Phi Inquiry Pt receiving controlled substance: No Vital Signs: 01/11/21 13:28 01/11/21 14:30 Temperature 101 F H Temperature Source Oral Pulse Rate 74 Pulse Rate [Radial] 76 Respiratory Rate 20 Blood Pressure 143/77 H Blood Pressure [Right Arm] 163/86 H Blood Pressure Mean [Right Arm] 111 Blood Pressure Position [Right Arm] Sitting 02 Sat by Pulse Oximetry 91 L 98 Oxygen Delivery Method Room Air - Lab Data Lab Results 01/11/21 13:25: Urine Color Dk yellow, Urine Appearance Cloudy, Urine pH 7.5, Ur Specific [place] 1.020, Urine Protein 2+, Urine Glucose (UA) Negative, Urine Ketones Negative, Urine Blood 3+, Urine Nitrate Negative, Urine Bilirubin Negative, Urine Urobilinogen 1.0, Ur Leukocyte Esterase 2+ A, Urine RBC Tntc, Urine WBC Tntc, Ur Squamous Epith Cells Occasional, Urine Bacteria 1+ 01/11/21 13:40: WBC 12.9 H, RBC 4.72, Hgb 14.6, Hct 42.7, MCV 90.5, MCH 31.1, MCHC 34.3, RDW 14.2, Plt Count 155, MPV 7.7, Neut % (Auto) 95.0 H, Lymph % (Auto) 1.9 L, [place] % (Auto) 2.7, Eos % (Auto) 0.2, Baso % (Auto) 0.1, Neut # (Auto) 12.2 H, Lymph # (Auto) 0.2 L, [place] # (Auto) 0.4, Eos # (Auto) 0.0, Baso # (Auto) 0.0, Total Counted 100, Neutrophils % (Manual) 91 H, Band Neutrophils % 6.0, Lymphocytes % (Manual) 3 L, Platelet Estimate Normal, RBC Morphology Normal 01/11/21 13:40: Sodium 137, Potassium 2.5 L*, Chloride 100, Carbon Dioxide 26, Anion Gap 13.5, BUN 34 H, Creatinine 1.90 H, Estimated Creat Clear 32, Estimated GFR 35 L, Est GFR ( Amer) 42 L, Glucose 148 H, Calcium 8.3 L, Total Bilirubin 0.9, AST 29, ALT 20, Alkaline Phosphatase 83, Total Protein 7.5, Albumin 3.9, Globulin 3.6 H, Albumin/Globulin Ratio 1.1 01/11/21 13:40: Lactate 2.4 H Result diagrams: 01/11/21 13:40 01/11/21 13:40 Orders (Tests/Meds): ED MEDICATIONS Generic Name Dose Route Start Last Admin Trade Name Freq PRN Reason Stop Dose Admin Sodium Chloride 1,000 mls @ 999 mls/hr 01/11/21 14:15 01/11/21 14:20 Sod Chlor 0.9% 1000ml Bag IV 01/11/21 15:15 999 mls/hr .Q1H1M INGRID Administration Ceftriaxone Sodium 1 gm/ 50 mls @ 100 mls/hr 01/11/21 14:30 01/11/21 14:56 Sodium Chloride IV 01/25/21 14:29 100 mls/hr Q24H INGRID Administration Protocol Discontinued Medications Generic Name Dose Route Start Last Admin Trade Name Freq PRN Reason Stop Dose Admin Acetaminophen 1,000 mg 01/11/21 14:26 01/11/21 14:56 Acetaminophen 500mg Tab PO 01/11/21 14:27 1,000 mg ONCE ONE Administration Potassium Chloride 60 meq 01/11/21 14:26 01/11/21 14:56 Potassium Chloride 20meq Tab PO 01/11/21 14:27 60 meq ONCE ONE Administration ORDERS Ca
[2021-01-11 14:41] LABS: Lymphocytes % 3 % (10-50); Neutrophils % 91 % (42-76); Platelet Estimate Normal; RBC Morphology Normal; Total Cells Counted 100
--- NOTE | 2021-01-11 14:50 | PC.NURSE ---
paging dr nichole
[2021-01-11 14:57] LABS: Coronavirus 19, PCR Not Detected (NotDetected); Influenza A, PCR Not Detected (NotDetected); Influenza B, PCR Not Detected (NotDetected)
--- NOTE | 2021-01-11 15:17 | XR_ITS ---
PROCEDURE: XR CHEST PORTABLE CLINICAL HISTORY: cough COMPARISON: 07/21/2020 FINDINGS: Heart size normal. Mild elevation of the right hemidiaphragm. Mild bibasilar atelectasis versus less likely infiltrate. No pleural effusion or pneumothorax. No acute bony abnormality. IMPRESSION: Mild bibasilar atelectasis versus less likely infiltrate. Otherwise unremarkable portable chest. Dictated by: Clyde Dc 01/11/2021 15:37 Clyde Dc in OV 01/11/2021 15:37
--- NOTE | 2021-01-11 16:40 | PC.NURSE ---
report called to floor
--- NOTE | 2021-01-11 18:01 | HMH.ACPN2 ---
Internal Medicine - PN: Subj *Date: 01/11/21 *Time: 18:01 Interval history: Mr. Herzog is a 75-year-old white male with a history of hypertension, previous hemorrhagic CVA with significant residual deficits, BPH, and chronic indwelling Siddiqui catheter who is followed routinely by home health for medical monitoring and changing his catheter monthly. Family reports that over the past couple of days he has seemed weaker and has not been eating as well. He had one episode of vomiting yesterday. He started running fever as high as 102 yesterday. His home health nurse visited this morning and noticed that the urine in his catheter bag was purple and referred him to the ER for further evaluation. On evaluation in the emergency room, urinalysis confirmed a urinary tract infection. CBC showed an elevated white blood cell count over 12,000. Lactate was elevated at 2.4. Electrolytes showed a low potassium of 2.4. He has received oral and IV potassium replacement in the emergency room and was started on IV Rocephin and is subsequent admitted for further evaluation and treatment. Exam Vital signs and Labs for Last 24 Hours: Temp Pulse Resp BP Pulse Ox 97.2 F L 67 16 130/71 98 01/11/21 17:19 01/11/21 17:19 01/11/21 17:19 01/11/21 17:19 01/11/21 17:19 Laboratory Results - last 24 hr 01/11/21 13:25: Urine Color Dk yellow, Urine Appearance Cloudy, Urine pH 7.5, Ur Specific [place] 1.020, Urine Protein 2+, Urine Glucose (UA) Negative, Urine Ketones Negative, Urine Blood 3+, Urine Nitrate Negative, Urine Bilirubin Negative, Urine Urobilinogen 1.0, Ur Leukocyte Esterase 2+ A, Urine RBC Tntc, Urine WBC Tntc, Ur Squamous Epith Cells Occasional, Urine Bacteria 1+ 01/11/21 13:40: WBC 12.9 H, RBC 4.72, Hgb 14.6, Hct 42.7, MCV 90.5, MCH 31.1, MCHC 34.3, RDW 14.2, Plt Count 155, MPV 7.7, Neut % (Auto) 95.0 H, Lymph % (Auto) 1.9 L, [place] % (Auto) 2.7, Eos % (Auto) 0.2, Baso % (Auto) 0.1, Neut # (Auto) 12.2 H, Lymph # (Auto) 0.2 L, [place] # (Auto) 0.4, Eos # (Auto) 0.0, Baso # (Auto) 0.0, Total Counted 100, Neutrophils % (Manual) 91 H, Band Neutrophils % 6.0, Lymphocytes % (Manual) 3 L, Platelet Estimate Normal, RBC Morphology Normal 01/11/21 13:40: Sodium 137, Potassium 2.5 L*, Chloride 100, Carbon Dioxide 26, Anion Gap 13.5, BUN 34 H, Creatinine 1.90 H, Estimated Creat Clear 32, Estimated GFR 35 L, Est GFR ( Amer) 42 L, Glucose 148 H, Calcium 8.3 L, Total Bilirubin 0.9, AST 29, ALT 20, Alkaline Phosphatase 83, Total Protein 7.5, Albumin 3.9, Globulin 3.6 H, Albumin/Globulin Ratio 1.1 01/11/21 13:40: Lactate 2.4 H 01/11/21 14:49: SARS-CoV-2 (PCR) Not detected, Influenza A Untype (PCR) Not detected, Influenza Type B (PCR) Not detected I & O for Last 24 hours: Intake & Output 01/09/21 01/10/21 01/11/21 01/12/21 11:59 11:59 11:59 11:59 Weight 164 lb 1 oz Narrative: He is lying comfortably in bed. He is awake and alert but nonverbal. He does shake his head yes and no appropriately to questions. Two daughters are at the bedside and relate his history. Mucous membranes are moist. Lungs are clear anteriorly. Breath sounds diminished in the bases. Heart is regular with no ectopy. Abdomen is soft and nondistended with hyperactive bowel sounds. No suprapubic tenderness. Siddiqui in place and draining dark yellow urine. Remedies no edema. Assessment and Plan (1) Hypokalemia Status: Acute Category: Medical Code(s): E87.6 - Hypokalemia (2) UTI (urinary tract infection) Status: Acute Qualifiers: Urinary tract infection type: catheter-associated UTI Indwelling urinary catheter type: indwelling urethral catheter Encounter type: initial encounter Qualified Code(s): T83.511A - Infection and inflammatory reaction due to indwelling urethral catheter, initial encounter; N39.0 - Urinary tract infection, site not specified Category: Medical Code(s): N39.0 - Urinary tract infection, site not specified (3) History of CV
[2021-01-11 18:03] LABS: Reflex Lactic Add Lactic Reflex
[2021-01-11 18:33] LABS: Lactic Acid Follow Up (RFLX 1) 1.4 mmol/L (0.7-2.1)
--- NOTE | 2021-01-11 18:46 | PC.WOUNDNOTE ---
Reddened area to bilateral buttocks Quarter-sized skin tear to RT thigh
--- NOTE | 2021-01-12 03:37 | PC.NURSE ---
PT IS ABLE TO RESPOND TO COMMANDS, BUT IS NONVERBAL. PT IS NOW ON RA, TOLERATING WELL. PT TURNED Q2H THIS SHIFT. PT HAS EPISODES OF INCONTINENCE TO BOWELS, DIARRHEA NOTED. FC PRESENT DRAINING DARK YELLOW URINE. PT HAS HAD NO C/O PAIN/NA/VO. HAS BEEN AFEBRILE. DAUGHTER AT BEDSIDE. VSS WILL CONTINUE TO MONITOR.
[2021-01-12 03:45] VITALS: BP 152/82; PULSE 62; RESP 16; TEMP 36.4; O2SAT 93
[2021-01-12 05:23] VITALS: BMI 24.3
[2021-01-12 06:08] LABS: Basophils % 0.2 % (0.1-2.0); Eosinophils # 0.2 K/mm3 (0.0-0.4); Hematocrit 35.7 % (42.0-52.0); Lymphocytes # 0.6 K/mm3 (0.7-4.5); Lymphocytes % 7.2 % (10-50); Mean Corpuscular HGB Conc 34.1 g/dL (31.8-35.4); Mean Corpuscular Hemoglobin 30.9 pg (27.0-31.2); Mean Corpuscular Volume 90.6 fl (80-94); Monocytes # 0.4 K/mm3 (0.1-1.0); Monocytes % 4.8 % (1.7-9.3); Neutrophils # 7.3 K/mm3 (1.8-7.8); Neutrophils % 85.8 % (37.0-80.0); Platelet Count 118 K/mm3 (142-424); Red Blood Count 3.94 M/mm3 (4.60-6.20); White Blood Count 8.5 K/mm3 (4.8-10.8)
[2021-01-12 06:18] LABS: MANUAL DIFFERENTIAL MANUAL DIFFERENTIAL (MANUAL DIFF)
[2021-01-12 06:19] LABS: Hemoglobin 13.6 g/dL (14.1-18.0)
[2021-01-12 06:24] LABS: Chloride 106 mmol/L (98-107); Sodium 137 mmol/L (136-145)
[2021-01-12 06:27] LABS: Alanine Aminotransferase 13 U/L (12-78); Albumin Level 2.8 g/dl (3.5-5.0); Albumin/Globulin Ratio 0.9 (1.1-1.8); Alkaline Phosphatase 55 U/L (38-126); Anion Gap 8.5 mEq/L (5-15); Aspartate Amino Transferase 25 U/L (17-59); Bilirubin,Total 0.4 mg/dl (0.2-1.3); Blood Urea Nitrogen 29 mg/dl (9-20); Calcium 7.6 mg/dl (8.4-10.2); Carbon Dioxide 25 mmol/L (22.0-30.0); Creatinine Clearance Estimated 68 mL/min (50-200); Estimated Glomerular Filt Rate 82 ml/min (>60); GFR (African American) 100 ML/MIN (>60); Glucose 89 mg/dl (74-100); Total Protein,Serum 5.8 g/dl (6.3-8.2)
[2021-01-12 07:06] LABS: Potassium 2.5 mmoL/L (3.5-5.1)
[2021-01-12 07:30] VITALS: PULSE 72; O2SAT 91
--- NOTE | 2021-01-12 07:37 | HMH.PHAVTE ---
[facility] Pharmacy VTE Monitoring - Patient Demographics Admission date: 01/11/21 Report Date: 01/12/21 Time: 07:37 Allergies/Adverse Reactions: Patient Allergies No Known Allergies Allergy (Verified 05/01/18 09:12) Height: 1.75 m Weight: 74.644 kg Patient Problems: Current Active Problems UTI (urinary tract infection) (Acute) History of CVA with residual deficit (Acute) Neurogenic bladder (Acute) Indwelling catheter present on admission (Acute) Sepsis (Acute) Hypokalemia (Acute) - VTE Risk Labs: VTE Related Lab Results Hgb 13.6 g/dL (14.1-18.0) L 01/12/21 05:58 Hct 35.7 % (42.0-52.0) L 01/12/21 05:58 Plt Count 118 K/mm3 (142-424) L 01/12/21 05:58 BUN 29 mg/dl (9-20) H 01/12/21 05:58 Creatinine 0.90 mg/dl (0.66-1.25) D 01/12/21 05:58 Estimated Creat Clear 68 mL/min (50-200) 01/12/21 05:58 Was VTE Risk Assessment Performed: Yes VTE Score: 4 VTE Risk Level: Low Risk - Prophylaxis VTE Prophylaxis Ordered?: Yes Types of VTE Prophylaxis: TEDS Knee High, Pharmacological Location of Applied Device: Bilateral Lower Extremeties Pharmacologic Type: Enoxaparin
[2021-01-12 07:40] LABS: Lymphocytes % 4 % (10-50); Monocytes % 1 % (2-9); Neutrophils % 95 % (42-76); Platelet Estimate Normal; RBC Morphology Normal; Total Cells Counted 100
[2021-01-12 08:00] VITALS: BP 159/82; PULSE 72; RESP 18; TEMP 37.1; O2SAT 91
--- NOTE | 2021-01-12 08:31 | HMH.PHACONS ---
- Pharmacy Consult Date: 01/12/21 Time: 08:31 Referring provider: DR. ANDERSON Reason for Consult:: VANCOMYCIN DOSING Allergies and ADEs:: Allergies Allergy/AdvReac Type Severity Reaction Status Date / Time No Known Allergies Allergy Verified 05/01/18 09:12 Home Medications:: Home Medications Medication Instructions Recorded Confirmed Type No Known Home Medications 01/11/21 01/11/21 History Height: 1.75 m Weight: 74.644 kg Laboratory Results:: Laboratory Results - last 24 hr 01/11/21 13:25: Urine Color Dk yellow, Urine Appearance Cloudy, Urine pH 7.5, Ur Specific [place] 1.020, Urine Protein 2+, Urine Glucose (UA) Negative, Urine Ketones Negative, Urine Blood 3+, Urine Nitrate Negative, Urine Bilirubin Negative, Urine Urobilinogen 1.0, Ur Leukocyte Esterase 2+ A, Urine RBC Tntc, Urine WBC Tntc, Ur Squamous Epith Cells Occasional, Urine Bacteria 1+ 01/11/21 13:40: WBC 12.9 H, RBC 4.72, Hgb 14.6, Hct 42.7, MCV 90.5, MCH 31.1, MCHC 34.3, RDW 14.2, Plt Count 155, MPV 7.7, Neut % (Auto) 95.0 H, Lymph % (Auto) 1.9 L, [place] % (Auto) 2.7, Eos % (Auto) 0.2, Baso % (Auto) 0.1, Neut # (Auto) 12.2 H, Lymph # (Auto) 0.2 L, [place] # (Auto) 0.4, Eos # (Auto) 0.0, Baso # (Auto) 0.0, Total Counted 100, Neutrophils % (Manual) 91 H, Band Neutrophils % 6.0, Lymphocytes % (Manual) 3 L, Platelet Estimate Normal, RBC Morphology Normal 01/11/21 13:40: Sodium 137, Potassium 2.5 L*, Chloride 100, Carbon Dioxide 26, Anion Gap 13.5, BUN 34 H, Creatinine 1.90 H, Estimated Creat Clear 32, Estimated GFR 35 L, Est GFR ( Amer) 42 L, Glucose 148 H, Calcium 8.3 L, Total Bilirubin 0.9, AST 29, ALT 20, Alkaline Phosphatase 83, Total Protein 7.5, Albumin 3.9, Globulin 3.6 H, Albumin/Globulin Ratio 1.1 01/11/21 13:40: Lactate 2.4 H 01/11/21 14:49: SARS-CoV-2 (PCR) Not detected, Influenza A Untype (PCR) Not detected, Influenza Type B (PCR) Not detected 01/11/21 18:15: Lactate 1.4 01/12/21 05:58: WBC 8.5 D, RBC 3.94 L, Hgb 13.6 L, Hct 35.7 L, MCV 90.6, MCH 30.9, MCHC 34.1, RDW 14.0, Plt Count 118 L, MPV 8.0, Neut % (Auto) 85.8 H, Lymph % (Auto) 7.2 L, [place] % (Auto) 4.8, Eos % (Auto) 2.0, Baso % (Auto) 0.2, Neut # (Auto) 7.3, Lymph # (Auto) 0.6 L, [place] # (Auto) 0.4, Eos # (Auto) 0.2, Baso # (Auto) 0.0, Total Counted 100, Neutrophils % (Manual) 95 H, Lymphocytes % (Manual) 4 L, Monocytes % (Manual) 1 L, Platelet Estimate Normal, RBC Morphology Normal 01/12/21 05:58: Sodium 137, Potassium 2.5 L*, Chloride 106, Carbon Dioxide 25, Anion Gap 8.5, BUN 29 H, Creatinine 0.90 D, Estimated Creat Clear 68, Estimated GFR 82, Est GFR ( Amer) 100 D, Glucose 89 D, Calcium 7.6 L, Total Bilirubin 0.4, AST 25, ALT 13 D, Alkaline Phosphatase 55, Total Protein 5.8 L, Albumin 2.8 L D, Globulin 3.0, Albumin/Globulin Ratio 0.9 L Medical History: Reports:: BPH, Cerebrovascular Accident, Hypertension Denies:: Cancer, Diabetes Mellitus Type 1, Diabetes Mellitus Type 2, MRSA Assessment and Plan (1) Hypokalemia Status: Acute Category: Medical Code(s): E87.6 - Hypokalemia (2) UTI (urinary tract infection) Status: Acute Qualifiers: Urinary tract infection type: catheter-associated UTI Indwelling urinary catheter type: indwelling urethral catheter Encounter type: initial encounter Qualified Code(s): T83.511A - Infection and inflammatory reaction due to indwelling urethral catheter, initial encounter; N39.0 - Urinary tract infection, site not specified Category: Medical Code(s): N39.0 - Urinary tract infection, site not specified (3) History of CVA with residual deficit Status: Acute Category: Medical Code(s): I69.30 - Unspecified sequelae of cerebral infarction (4) Indwelling catheter present on admission Status: Acute Category: Medical Code(s): Z96.0 - Presence of urogenital implants (5) Neurogenic bladder Status: Acute Category: Medical Code(s): N31.9 - Neuromuscular dysfunction of bladder, unspecified - Assessment and plan all Dx
--- NOTE | 2021-01-12 09:16 | HMH.HP ---
*Admission Date: 01/11/21 <Brenda Harris 01/12/21 09:28> *Chief complaint: fever; UTI <Brenda Harris 01/12/21 09:28> *History of present illness: Mr. Herzog is a 75-year-old white male with a history of hypertension, previous hemorrhagic CVA with significant residual deficits, BPH, and chronic indwelling Siddiqui catheter who is followed routinely by home health for medical monitoring and changing his catheter monthly. Family reports that over the past couple of days he has seemed weaker and has not been eating as well. He had one episode of vomiting yesterday. He started running fever as high as 102 yesterday. His home health nurse visited this morning and noticed that the urine in his catheter bag was purple and referred him to the ER for further evaluation. On evaluation in the emergency room, urinalysis confirmed a urinary tract infection. CBC showed an elevated white blood cell count over 12,000. Lactate was elevated at 2.4. Electrolytes showed a low potassium of 2.4. He has received oral and IV potassium replacement in the emergency room and was started on IV Rocephin and is subsequent admitted for further evaluation and treatment. Information is obtained from the daughter this a.m. who stayed with him during the night. She states he rested well. She feels he is more alert and cognition is back to normal. Laboratory data on admission showed a white blood cell count of 12,900 and is 8500 this a.m. Blood chemistries reveal continued low potassium at 2.5. Renal function is satisfactory. <Brenda Harris 01/12/21 09:28> [facility] History Medical History: Reports:: BPH, Cerebrovascular Accident, Hypertension Denies:: Cancer, Diabetes Mellitus Type 1, Diabetes Mellitus Type 2, MRSA <Brenda Harris 01/12/21 09:28> *Have you ever received a pneumonia vaccine?: No <Brenda Harris 01/12/21 09:28> *Have you received a flu vaccine this season?: No <Brenda Harris 01/12/21 09:28> Other Medical History: Reports: Arthritis <Brenda Harris 01/12/21 09:28> Other Surgeries: Yes: Other (Prostate) <Brenda Harris 01/12/21 09:28> Amputation: No <Brenda Harris 01/12/21 09:28> Fractures: No <Brenda Harris 01/12/21 09:28> Comment: Back surgery, PEG tube, suprapubic catheter. <Brenda Harris 01/12/21 09:28> - *Social History Last grade of school completed: 11th or 12th <Brenda Harris 01/12/21 09:28> Smoking Status: Never smoker <Brenda Harris 01/12/21 09:28> Alcohol Intake: never <KimberlyBrenda - 01/12/21 09:28> *Occupational Status:: disabled <Brenda Harris 01/12/21 09:28> Housing: house <Brenda Harris 01/12/21 09:28> Household Members: spouse <KimberlyBrenda 01/12/21 09:28> *Travel in the last 8 weeks: None <Brenda Harris 01/12/21 09:28> Family Hx:: No significant family history <Brenda Harris 01/12/21 09:28> Review of Systems - Constitutional Reports fever(s), Reports weakness <Brenda Harris 01/12/21 09:28> - Eyes Denies change in vision <Brenda Harris 01/12/21 09:28> - ENT Denies headache(s), Denies nasal congestion, Denies sore throat <Brenda Harris 01/12/21 09:28> - *Cardiovascular Denies chest pain, Denies shortness of breath, Denies generalized swelling, Denies leg swelling <Brenda Harris 01/12/21 09:28> - *Respiratory Denies chest congestion, Denies cough, Denies shortness of breath <Brenda Harris 01/12/21 09:28> - *Gastrointestinal Reports loose stools (Which is his norm), Reports difficulty swallowing (Sometimes does choke on food), Reports nausea, Reports vomiting, Denies abdominal pain, Denies vomiting blood, Denies bright, red blood in stools <Brenda Harris 01/12/21 09:28> - *Genitourinary Reports other <Brenda Harris 01/12/21 09:28> Comments: Has a suprapubic catheter with discolored urine at home. <Brenda Harris - 01/12/21 09:28> - *Musculoskeletal Reports other <Brenda Harris - 01/12/21 09:28> Comments: Family transfers him to the [facility]
--- NOTE | 2021-01-12 12:49 | PC.NURSE ---
0745 notified Marilyn Harris of pt Blood cultures positive for MRSA no new orders
[2021-01-12 15:43] VITALS: BP 125/71; PULSE 67; TEMP 37.6; O2SAT 96
--- NOTE | 2021-01-12 18:48 | PC.NURSE ---
pt has rested well this shift. family has been at bedside. pt will speak to staff minimally, but when staff makes jokes/small talk with pt, he is noted to smile and nod at staff. lungs are clear, bowel sounds active. pt has had 1 soft bm this am. minimal drainage noted from supra pubic catheter.
[2021-01-12 20:00] VITALS: BP 121/59; PULSE 75; RESP 17; TEMP 37.1; O2SAT 95
[2021-01-13] VITALS: BP 120/69; PULSE 71; RESP 18; TEMP 36.8; O2SAT 96
[2021-01-13 04:00] VITALS: BP 122/70; PULSE 69; RESP 18; TEMP 36.7; O2SAT 96
--- NOTE | 2021-01-13 04:40 | PC.NURSE ---
PT IS ALERT AND ABLE TO RESPOND TO COMMANDS, BUT REMAINS NONVERBAL. TOLERATING RA WELL. SUPRAPUBIC CATHETER PRESENT DRAINING YELLOW URINE. PT HAS BEEN INCONTINENT OF BOWELS. KEPT CLEAN AND DRY. PT TURNED T/O SHIFT. AT BEDSIDE. PT HAS HAD NO C/O PAIN/NA/VO THIS SHIFT. PT HAS SLEPT MAJORITY OF SHIFT. VSS WILL CONTINUE TO MONITOR.
[2021-01-13 05:13] VITALS: BMI 24.3
[2021-01-13 05:49] LABS: Basophils % 0.3 % (0.1-2.0); Eosinophils # 0.2 K/mm3 (0.0-0.4); Eosinophils % 3.8 % (0.1-12.0); Lymphocytes # 0.8 K/mm3 (0.7-4.5); Lymphocytes % 13.3 % (10-50); Mean Corpuscular HGB Conc 34.3 g/dL (31.8-35.4); Mean Corpuscular Hemoglobin 30.5 pg (27.0-31.2); Mean Corpuscular Volume 88.9 fl (80-94); Mean Platelet Volume 8.6 fl (7.4-10.4); Monocytes # 0.4 K/mm3 (0.1-1.0); Monocytes % 7.3 % (1.7-9.3); Neutrophils # 4.5 K/mm3 (1.8-7.8); Neutrophils % 75.3 % (37.0-80.0); Platelet Count 121 K/mm3 (142-424); Red Blood Count 3.82 M/mm3 (4.60-6.20); Red Cell Distribution Width 14.3 % (11.5-17.5)
[2021-01-13 05:52] LABS: Hemoglobin 11.8 g/dL (14.1-18.0)
[2021-01-13 05:58] LABS: Chloride 111 mmol/L (98-107); Sodium 139 mmol/L (136-145)
[2021-01-13 06:01] LABS: Blood Urea Nitrogen 17 mg/dl (9-20); Creatinine Clearance Estimated 68 mL/min (50-200); Estimated Glomerular Filt Rate 163 ml/min (>60); GFR (African American) 197 ML/MIN (>60)
[2021-01-13 06:02] LABS: Calcium 7.3 mg/dl (8.4-10.2); Carbon Dioxide 24 mmol/L (22.0-30.0); Glucose 100 mg/dl (74-100)
[2021-01-13 08:00] VITALS: BP 126/65; PULSE 63; RESP 16; TEMP 37.2; O2SAT 93; O2SAT 96
--- NOTE | 2021-01-13 08:18 | HMH.ACPN2 ---
<Day Leon - Last Filed: 01/13/21 08:18> Internal Medicine - PN: Subj *Date: 01/13/21 *Time: 08:18 Interval history: Patient and his state he seems to be doing better. He slept really well last night and is eating this morning. He denies any pain. Urine culture is growing Pseudomonas that is pansensitive. Preliminary blood cultures show gram-positive cocci in clusters and PCR shows Staph aureus. Exam Vital signs and Labs for Last 24 Hours: Temp Pulse Resp BP Pulse Ox 98.9 F 63 16 126/65 93 L 01/13/21 08:00 01/13/21 08:00 01/13/21 08:00 01/13/21 08:00 01/13/21 08:00 Laboratory Results - last 24 hr 01/11/21 13:25: Urine Color Dk yellow, Urine Appearance Cloudy, Urine pH 7.5, Ur Specific Ashley 1.020, Urine Protein 2+, Urine Glucose (UA) Negative, Urine Ketones Negative, Urine Blood 3+, Urine Nitrate Negative, Urine Bilirubin Negative, Urine Urobilinogen 1.0, Ur Leukocyte Esterase 2+ A, Urine RBC Tntc, Urine WBC Tntc, Ur Squamous Epith Cells Occasional, Urine Bacteria 1+ 01/13/21 05:43: WBC 6.0 D, RBC 3.82 L, Hgb 11.8 L D, Hct 34.0 L, MCV 88.9, MCH 30.5, MCHC 34.3, RDW 14.3, Plt Count 121 L, MPV 8.6, Neut % (Auto) 75.3, Lymph % (Auto) 13.3, Hockley % (Auto) 7.3, Eos % (Auto) 3.8, Baso % (Auto) 0.3, Neut # (Auto) 4.5, Lymph # (Auto) 0.8, Hockley # (Auto) 0.4, Eos # (Auto) 0.2, Baso # (Auto) 0.0 01/13/21 05:43: Sodium 139, Potassium 3.0 L, Chloride 111 H, Carbon Dioxide 24, Anion Gap 7.0, BUN 17 D, Creatinine 0.50 L D, Estimated Creat Clear 68, Estimated GFR 163, Est GFR ( Amer) 197 D, Glucose 100, Calcium 7.3 L I & O for Last 24 hours: Intake & Output 01/10/21 01/11/21 01/12/21 01/13/21 11:59 11:59 11:59 11:59 Intake Total 1931 / 1931 720 / 720 Output Total 928 / 928 600 / 600 Balance 1003 / 1003 120 / 120 Weight 164 lb 9 oz 164 lb 7 oz Microbiology Reports for the Last 24 Hours: Microbiology 01/11/21 13:25 Urine,Clean Catch Urine Culture - Final Pseudomonas aeruginosa 01/11/21 13:40 Blood Blood Culture - Preliminary 01/11/21 13:40 Blood Blood Culture - Preliminary - Constitutional no acute distress - *Routine Respiratory Exam Present: CTA bilaterally - *Routine Cardiovascular Exam Present: RRR - *Routine Abdominal Exam Present: soft, normoactive bowel sounds. Absent: tenderness - *Routine Extremities Exam Absent: cyanosis, clubbing, edema - *Routine Skin Exam Present: warm. Absent: rash - *Routine Neurological Exam Present: alert, oriented X3 Assessment and Plan (1) Pseudomonas urinary tract infection Status: Acute Category: Medical Code(s): N39.0 - Urinary tract infection, site not specified; B96.5 - Pseudomonas (aeruginosa) (mallei) (pseudomallei) as the cause of diseases classified elsewhere (2) Hypokalemia Status: Acute Category: Medical Code(s): E87.6 - Hypokalemia (3) History of CVA with residual deficit Status: Acute Category: Medical Code(s): I69.30 - Unspecified sequelae of cerebral infarction (4) Indwelling catheter present on admission Status: Acute Category: Medical Code(s): Z96.0 - Presence of urogenital implants (5) Neurogenic bladder Status: Acute Category: Medical Code(s): N31.9 - Neuromuscular dysfunction of bladder, unspecified - Assessment and plan all Dx Assessment and Plan for all problems:: We will continue current IV antibiotics based on urine culture results and await final blood culture results. <Rayshawn Monterroso - Last Filed: 01/13/21 08:24> Internal Medicine - PN: Subj *Date: 01/13/21 *Time: 08:22 Exam Vital signs and Labs for Last 24 Hours: Temp Pulse Resp BP Pulse Ox 98.9 F 63 16 126/65 93 L 01/13/21 08:00 01/13/21 08:00 01/13/21 08:00 01/13/21 08:00 01/13/21 08:00 Laboratory Results - last 24 hr 01/11/21 13:25: Urine Color Dk yellow, Urine Appearance Cloudy, Urine pH 7.5, Ur Specific Ashley 1.020, Urin
--- NOTE | 2021-01-13 09:15 | SW/DCPLANNER ---
Addendum entered by Jodi Beualieu 01/14/21 13:54: Daniela with [facility] has confirmed that hernandez will be total of $10. Alexa Handy spoke with family regarding hernandez and family is fine with this plan. Medication will be delivered to families home today. Patient will discharge home today. Addendum entered by Jodi Beaulieu 01/14/21 11:23: Ta with [facility] has confirmed that services will resume for patients IV antibiotics. Ta understands that first dose will be tonight at 8PM. I am currently waiting to hear back from Daniela with [facility]. Addendum entered by Jodi Beaulieu 01/14/21 09:53: Patient information/order will be faxed to [employer] and [facility] today for at home IV antibiotics. Family is aware and concurs with plan. I will follow up with [facility] once patient information is reviewed. Original Note: I spoke with this patients family today regarding plans once medically stable for discharge. Patient will more than likely need IV antibiotics once he is ready to leave. stated that patient currently receives services from [facility]. I explained to different options to receive IV antibiotics: home with home health and someone taught how to administer, placement or return to [facility] for outpatient IV antibiotics. stated they would prefer to return home with [facility]. I will set this patient up with home IV antibiotics thru [employer] and [facility] once patient is ready for discharge. has also asked that I speak with [facility] regarding catheter supplies once patient is ready to discharge.
[2021-01-13 16:00] VITALS: BP 171/83; PULSE 68; RESP 18; TEMP 36.9; O2SAT 96
--- NOTE | 2021-01-13 17:45 | PC.NURSE ---
Pt has been pleasant and alert this shift. Docusate sodium and lovenox from AM med pass were both refused by pt's . Pt has been offered q2h turns this shift but has refused most turns. No other acute changes or concerns. Will continue to monitor
[2021-01-13 20:00] VITALS: BP 145/88; PULSE 68; RESP 18; TEMP 37; O2SAT 95
[2021-01-13 21:37] LABS: Vancomycin,Trough 6.7 ug/mL (5.0-10.0)
[2021-01-14 04:00] VITALS: BP 183/97; PULSE 72; RESP 17; TEMP 36.6; O2SAT 97
--- NOTE | 2021-01-14 05:24 | PC.NURSE ---
patient has shown no s/s of acute distress this shift; bed at lowest level for safety, call light within reach; will continue to monitor.
[2021-01-14 05:26] VITALS: BMI 24.4
[2021-01-14 07:32] VITALS: BP 151/84; PULSE 80; RESP 17; TEMP 37.1; O2SAT 96
--- NOTE | 2021-01-14 08:04 | HMH.PHACONS ---
- Pharmacy Consult Date: 01/14/21 Time: 08:04 Referring provider: DR. ANDERSON Reason for Consult:: VANCOMYCIN TROUGH LEVEL AND DOSE CHANGE Allergies and ADEs:: Allergies Allergy/AdvReac Type Severity Reaction Status Date / Time No Known Allergies Allergy Verified 05/01/18 09:12 Home Medications:: Home Medications Medication Instructions Recorded Confirmed Type No Known Home Medications 01/11/21 01/11/21 History Height: 1.75 m Weight: 74.871 kg Laboratory Results:: Laboratory Results - last 24 hr 01/13/21 20:55: Vancomycin Trough 6.7 Medical History: Reports:: BPH, Cerebrovascular Accident, Hypertension Denies:: Cancer, Diabetes Mellitus Type 1, Diabetes Mellitus Type 2, MRSA Assessment and Plan (1) Pseudomonas urinary tract infection Status: Acute Category: Medical Code(s): N39.0 - Urinary tract infection, site not specified; B96.5 - Pseudomonas (aeruginosa) (mallei) (pseudomallei) as the cause of diseases classified elsewhere (2) Hypokalemia Status: Acute Category: Medical Code(s): E87.6 - Hypokalemia (3) History of CVA with residual deficit Status: Acute Category: Medical Code(s): I69.30 - Unspecified sequelae of cerebral infarction (4) Indwelling catheter present on admission Status: Acute Category: Medical Code(s): Z96.0 - Presence of urogenital implants (5) Neurogenic bladder Status: Acute Category: Medical Code(s): N31.9 - Neuromuscular dysfunction of bladder, unspecified (6) Positive blood culture Status: Acute Category: Medical Code(s): R78.81 - Bacteremia - Assessment and plan all Dx Assessment and Plan for all problems:: BASED ON PATIENT FACTORS AND VANCOMYCIN TROUGH LEVEL OF 6.7, RECOMMEND CHANGING DOSING INTERVAL TO EVER 12 HOURS. WILL KEEP CURRENT DOSE OF 1,500MG. PHARMACY WILL CONTINUE TO MONITOR AND ADJUST DOSE APPROPRIATE. -MIGUEL ESQUIVEL PHARMD
--- NOTE | 2021-01-14 08:22 | HMH.ACPN2 ---
<Day Leon - Last Filed: 01/14/21 08:22> Internal Medicine - PN: Subj *Date: 01/14/21 *Time: 08:22 Interval history: Patient states he is feeling well this morning. He denies any pain and states he slept well last night. He has eaten most of his breakfast this morning. Exam Vital signs and Labs for Last 24 Hours: Temp Pulse Resp BP Pulse Ox 98.7 F 80 17 151/84 H 96 01/14/21 07:32 01/14/21 07:32 01/14/21 07:32 01/14/21 07:32 01/14/21 07:32 Laboratory Results - last 24 hr 01/13/21 20:55: Vancomycin Trough 6.7 I & O for Last 24 hours: Intake & Output 01/11/21 01/12/21 01/13/21 01/14/21 11:59 11:59 11:59 11:59 Intake Total 1931 / 1931 1320 / 1320 840 / 840 Output Total 928 / 928 1400 / 1400 2950 / 2950 Balance 1003 / 1003 -80 / -80 -2110 / -2110 Weight 164 lb 9 oz 164 lb 7 oz 165 lb 1 oz Microbiology Reports for the Last 24 Hours: Microbiology 01/11/21 13:40 Blood Blood Culture - Preliminary Gram Positive Cocci 01/11/21 13:40 Blood Blood Culture - Preliminary Gram Positive Cocci 01/11/21 13:25 Urine,Clean Catch Urine Culture - Final Pseudomonas aeruginosa - Constitutional no acute distress - *Routine Respiratory Exam Present: CTA bilaterally - *Routine Cardiovascular Exam Present: RRR - *Routine Abdominal Exam Present: soft, normoactive bowel sounds. Absent: tenderness - *Routine Extremities Exam Absent: cyanosis, clubbing, edema - *Routine Neurological Exam Present: alert, oriented X3 Assessment and Plan (1) Pseudomonas urinary tract infection Status: Acute Category: Medical Code(s): N39.0 - Urinary tract infection, site not specified; B96.5 - Pseudomonas (aeruginosa) (mallei) (pseudomallei) as the cause of diseases classified elsewhere (2) Hypokalemia Status: Acute Category: Medical Code(s): E87.6 - Hypokalemia (3) History of CVA with residual deficit Status: Acute Category: Medical Code(s): I69.30 - Unspecified sequelae of cerebral infarction (4) Indwelling catheter present on admission Status: Acute Category: Medical Code(s): Z96.0 - Presence of urogenital implants (5) Neurogenic bladder Status: Acute Category: Medical Code(s): N31.9 - Neuromuscular dysfunction of bladder, unspecified (6) Positive blood culture Status: Acute Category: Medical Code(s): R78.81 - Bacteremia - Assessment and plan all Dx Assessment and Plan for all problems:: Preliminary blood cultures are growing staph. Patient will have a PICC line placed today for outpatient IV vancomycin. He will also be discharged on an oral antibiotic for his urinary tract infection. He can be discharged later today. <Rayshawn Monterroso - Last Filed: 01/14/21 13:47> Internal Medicine - PN: Subj *Date: 01/14/21 *Time: 13:45 Exam Vital signs and Labs for Last 24 Hours: Temp Pulse Resp BP Pulse Ox 98.7 F 80 17 151/84 H 96 01/14/21 07:32 01/14/21 07:32 01/14/21 07:32 01/14/21 07:32 01/14/21 07:32 Laboratory Results - last 24 hr 01/13/21 20:55: Vancomycin Trough 6.7 I & O for Last 24 hours: Intake & Output 01/12/21 01/13/21 01/14/21 01/15/21 11:59 11:59 11:59 11:59 Intake Total 1931 / 1931 1320 / 1320 840 / 840 240 / 240 Output Total 928 / 928 1400 / 1400 2950 / 2950 Balance 1003 / 1003 -80 / -80 -2110 / -2110 240 / 240 Weight 164 lb 9 oz 164 lb 7 oz 165 lb 1 oz Microbiology Reports for the Last 24 Hours: Microbiology 01/11/21 13:40 Blood Blood Culture - Final Staphylococcus aureus 01/11/21 13:40 Blood Blood Culture - Final Staphylococcus aureus Assessment and Plan (1) Pseudomonas urinary tract infection Status: Acute Category: Medical Code(s): N39.0 - Urinary tract infection, site not specified; B96.5 - Pseudomonas (aeruginosa) (ma
--- NOTE | 2021-01-14 08:34 | XR_ITS ---
PROCEDURE: XR CHEST PORTABLE PICC PLAC CLINICAL HISTORY: Confirm PICC line placement COMPARISON: CR CXR1 CHEST-PORTABLE from 02/05/2016 CR XR CHEST PORTABLE from 07/21/2020 CR XR CHEST PORTABLE from 01/11/2021 FINDINGS: There has been interval placement of a left-sided PICC line catheter with tip in the region of the right brachiocephalic vein. Heart is mildly enlarged but stable. Mild elevation the right hemidiaphragm. No pleural effusion or pneumothorax. IMPRESSION: Interval placement of left-sided PICC line catheter with tip in region of the right brachiocephalic vein. Mild cardiomegaly with mild bibasilar scar versus atelectasis. Findings were discussed by telephone with nurse Papa on med surg, on 01/14/2021 at approximately 1510 hours. Dictated by: Clyde Dc MD 01/14/2021 15:11 Clyde Dc MD in [place] 01/14/2021 15:11
--- NOTE | 2021-01-14 12:36 | PC.NURSE ---
Notified Mel of MRSA positive blood cx's at Dr. Monterroso's office in [place]. She stated she would let him known.
[2021-01-14 15:00] VITALS: BP 154/82; PULSE 76; RESP 18; TEMP 36.7; O2SAT 97
--- NOTE | 2021-01-15 15:08 | HMH.DCSUM ---
General - General Admission date:: 01/11/21 <Rayshawn Monterroso - 02/05/21 08:20> 01/11/21 <Day Leon - 01/15/21 15:33> Discharge date: 01/14/21 <Day Leon - 01/15/21 15:33> HPI HPI: Mr. Herzog is a 75-year-old white male with a history of hypertension, previous hemorrhagic CVA with significant residual deficits, BPH, and chronic indwelling Siddiqui catheter who is followed routinely by home health for medical monitoring and changing his catheter monthly. Family reports that over the past couple of days he has seemed weaker and has not been eating as well. He had one episode of vomiting yesterday. He started running fever as high as 102 yesterday. His home health nurse visited this morning and noticed that the urine in his catheter bag was purple and referred him to the ER for further evaluation. On evaluation in the emergency room, urinalysis confirmed a urinary tract infection. CBC showed an elevated white blood cell count over 12,000. Lactate was elevated at 2.4. Electrolytes showed a low potassium of 2.4. He has received oral and IV potassium replacement in the emergency room and was started on IV Rocephin and is subsequently admitted for further evaluation and treatment. Information is obtained from the daughter this a.m. who stayed with him during the night. She states he rested well. She feels he is more alert and cognition is back to normal. Laboratory data on admission showed a white blood cell count of 12,900 and is 8500 this a.m. Blood chemistries reveal continued low potassium at 2.5. Renal function is satisfactory. <Day Leon - 01/15/21 15:33> Hospital Course Hospital Course: The patient was admitted and started on IV Rocephin as well as potassium supplementation. His urine culture showed gram-negative rods and his blood cultures were growing gram-positive cocci. He was continued on the Rocephin and started on vancomycin due to positive blood cultures. By 01/13/2021, he was feeling better. He was able to eat and rested well during the night. He denied any pain. His urine culture was growing Pseudomonas aeruginosa which was pansensitive. A PICC line was placed for outpatient IV vancomycin due to his bacteremia. His final blood cultures were positive for MRSA. He was discharged home on IV vancomycin for 10 days as well as p.o. cefuroxime for his UTI. He will follow up with Dr. Monterroso. <Day Leon - 01/15/21 15:33> Objective Vital signs: Temp Pulse Resp BP Pulse Ox 98.0 F 76 18 154/82 H 97 01/14/21 15:00 01/14/21 15:00 01/14/21 15:00 01/14/21 15:00 01/14/21 15:00 <Rayshawn Monterroso - 02/05/21 08:20> Temp Pulse Resp BP Pulse Ox 98.0 F 76 18 154/82 H 97 01/14/21 15:00 01/14/21 15:00 01/14/21 15:00 01/14/21 15:00 01/14/21 15:00 <Day Leon - 01/15/21 15:33> Narrative: - Constitutional no acute distress - *Routine Respiratory Exam Present: CTA bilaterally - *Routine Cardiovascular Exam Present: RRR - *Routine Abdominal Exam Present: soft, normoactive bowel sounds. Absent: tenderness - *Routine Extremities Exam Absent: cyanosis, clubbing, edema - *Routine Neurological Exam Present: alert, oriented X3 <Day Leon - 01/15/21 15:33> DS: Diagnosis - Discharge Diagnosis (1) Pseudomonas urinary tract infection Status: Acute (2) MRSA (methicillin resistant Staphylococcus aureus) septicemia Status: Acute (3) Hypokalemia Status: Acute (4) History of CVA with residual deficit Status: Acute (5) Indwelling catheter present on admission Status: Acute (6) Neurogenic bladder Status: Acute <Day Leon - 01/15/21 15:08> (1) Pseudomonas urinary tract infection Status: Acute (2) MRSA (methicillin resistant Staphylococcus aureus) septicemia Status: Acute (3) Hypokalemia Status: Acute (4) History of CVA with residual deficit Status: Acute (5) I
== END 2021-01-14 17:50 | disposition home or self-care (01) | DRG 698 ==
LOC: ER 15:15 → 2ND 16:28
PROVIDERS: Admitting Provider Family Medicine; Emergency Provider Emergency Medicine; PCP Family Medicine; Visit Provider Family Medicine
DX: T83.511A Infection and inflammatory reaction due to indwelling urethral catheter, initial encounter (principal); A41.02 Sepsis due to Methicillin resistant Staphylococcus aureus; N39.0 Urinary tract infection, site not specified; Y84.6 Urinary catheterization as the cause of abnormal reaction of the patient, or of later complication, without mention of misadventure at the time of the procedure; I69.398 Other sequelae of cerebral infarction; N31.2 Flaccid neuropathic bladder, not elsewhere classified; E87.6 Hypokalemia; I10 Essential (primary) hypertension; M19.90 Unspecified osteoarthritis, unspecified site; N40.0 Benign prostatic hyperplasia without lower urinary tract symptoms; A49.8 Other bacterial infections of unspecified site
CPT/HCPCS: 36415; 36569; 71045; 80048; 80053; 80202; 81001; 83605; 85007; 85025; 87040; 87077; 87086; 87088; 87186; 96365; 96366; 96375; 99284; C1751; J2405; J3370; U0003

== ENCOUNTER → 2021-02-09 17:01 | Outpatient (CLI) | payer MEDICARE, SELFPAY ==
[2021-02-09 17:33] LABS: Basophils % 0.4 % (0.1-2.0); Eosinophils # 0.3 K/mm3 (0.0-0.4); Eosinophils % 4.1 % (0.1-12.0); Hematocrit 39.4 % (42.0-52.0); Hemoglobin 12.7 g/dL (14.1-18.0); Lymphocytes # 1.5 K/mm3 (0.7-4.5); Lymphocytes % 18.7 % (10-50); Mean Corpuscular HGB Conc 32.2 g/dL (31.8-35.4); Mean Corpuscular Hemoglobin 29.4 pg (27.0-31.2); Mean Corpuscular Volume 91.3 fl (80-94); Mean Platelet Volume 7.2 fl (7.4-10.4); Monocytes # 0.4 K/mm3 (0.1-1.0); Monocytes % 4.7 % (1.7-9.3); Neutrophils # 5.6 K/mm3 (1.8-7.8); Neutrophils % 72.1 % (37.0-80.0); Platelet Count 296 K/mm3 (142-424); Red Blood Count 4.31 M/mm3 (4.60-6.20); Red Cell Distribution Width 13.9 % (11.5-17.5); White Blood Count 7.8 K/mm3 (4.8-10.8)
[2021-02-09 19:14] LABS: Alanine Aminotransferase 14 U/L (12-78); Albumin Level 4.2 g/dl (3.5-5.0); Albumin/Globulin Ratio 1.2 (1.1-1.8); Alkaline Phosphatase 82 U/L (38-126); Anion Gap 13.9 mEq/L (5-15); Aspartate Amino Transferase 22 U/L (17-59); Bilirubin,Total 0.6 mg/dl (0.2-1.3); Blood Urea Nitrogen 18 mg/dl (9-20); Calcium 8.6 mg/dl (8.4-10.2); Carbon Dioxide 30 mmol/L (22.0-30.0); Chloride 103 mmol/L (98-107); Estimated Glomerular Filt Rate 65 ml/min (>60); GFR (African American) 79 ML/MIN (>60); Globulin 3.5 g/dL (1.3-3.2); Glucose 109 mg/dl (74-100); Sodium 144 mmol/L (136-145); Total Protein,Serum 7.7 g/dl (6.3-8.2)
[2021-02-09 20:25] LABS: Potassium 2.9 mmoL/L (3.5-5.1)
== END ==
PROVIDERS: Visit Provider Family Medicine
DX: A49.02 Methicillin resistant Staphylococcus aureus infection, unspecified site (principal)
CPT/HCPCS: 36415; 80053; 85025; 87040

== ENCOUNTER → 2021-02-16 13:57 | Outpatient (CLI) | payer MEDICARE, SELFPAY | PROVIDERS: Visit Provider Family Medicine | DX: R19.7 Diarrhea, unspecified (principal) | CPT/HCPCS: 87045 ==

== ENCOUNTER 2022-12-30 15:37 | Observation (INO) | payer MEDICARE, SELFPAY ==
[2022-12-30] VITALS (9 sets, daily range): BP systolic 110–186; BP diastolic 64–131; PULSE 58–118; RESP 17–20; TEMP 36.6–37.2; O2SAT 94–98; BMI 22.1
--- NOTE | 2022-12-30 16:05 | HMH.EDGENADL ---
Discharge Plan Disposition Patient Disposition: Admitted Chief Complaint: Urogenital-Male Prescriptions Prescriptions: No Action vancomycin 1,000 MG/VIAL recon soln 1,500 mg IV Q12H 10 Days Qty: 20 0RF potassium chloride 20 MEQ tablet 20 meq PO DAILY Qty: 15 0RF cefuroxime axetil 500 MG tablet 500 mg PO BID Qty: 14 0RF Referrals Follow up/Referrals: Bill Matthew MD [Primary Care Provider] - See instructions Clinical Impressions Clinical Impression: Catheter-associated urinary tract infection, History of MDR Pseudomonas aeruginosa infection, Hypokalemia Instructions Patient Instructions: DI for Urinary Tract Infection (UTI), DI for Urinary Tract Infection in Children Discharge ED Provider: Alem Gonsalez General Adult HPI General Chief complaint: Urogenital-Male Stated complaint: Bladder infection Time Seen by Provider: 12/30/22 16:05 History of Present Illness HPI narrative: Patient is a 77-year-old minimally verbal gentleman who is suffering with neurogenic bladder after being paralyzed from the stroke several years ago presenting today with symptoms of a urinary tract infection. He has an indwelling suprapubic catheter and has had multiple urinary tract infections including multidrug-resistant Pseudomonas. His daughter is here at the bedside state that he had significant sediment and lack of flow from his suprapubic catheter and had significant overflow around the catheter until a New catheter was placed this morning. Once a new catheter was placed there was flow and significant sediment in the Siddiqui catheter bag. The most recent suprapubic catheter that was replaced was less than 1 month ago prior to this new and today. The patient has not had any objective fevers but is unable to articulate further symptoms. Related Data Previous Rx's Medication Instructions Recorded cefuroxime axetil 500 mg tablet 500 mg PO BID #14 tabs 01/14/21 potassium chloride 20 mEq 20 meq PO DAILY #15 tabs 01/14/21 tablet,extended release(part/cryst) vancomycin 1,000 mg intravenous 1,500 mg IV Q12H 10 days #20 vials 01/14/21 injection Allergies Allergy/AdvReac Type Severity Reaction Status Date / Time No Known Allergies Allergy Verified 05/01/18 09:12 [facility] Disclaimer: The information contained in this section may have been updated after the patient was seen, as this information can be updated by other users. Social History Smoking Status: Never smoker alcohol intake: never current occupational status: disabled Travel in the last 8 weeks: None household members: spouse housing: house current occupational exposures/hazards: No caffeine: Yes ROS Obtained: Yes All systems reviewed & no additional complaints except as documented Physical Exam General General appearance: other (In a wheelchair nonverbal at his baseline neurologically) Respiratory Respiratory exam: Present normal lung sounds bilaterally Cardiovascular Cardiovascular exam: Present regular rate; Absent tachycardia Abdominal Exam Abdominal exam: Present other (Suprapubic catheter insertion site has good granulation tissue no erythema or purulent drainage catheter is in place which has very thick with sediment ) Neurological Exam Neurological exam: Present alert and other (Chronically debilitated his neurologic baseline) Medical Decision Making Phi Inquiry Pt receiving controlled substance: No Vital Signs: 12/30/22 15:40 12/30/22 15:54 12/30/22 16:00 Temperature 98.9 F Temperature Source Oral Pulse Rate 71 73 Pulse Rate [Left] 118 H Respiratory Rate 19 Blood Pressure 117/72 110/78 Blood Pressure [Right Arm] 117/72 Blood Pressure Mean 87 89 Blood Pressure Mean [Right Arm] 87 02 Sat by Pulse Oximetry 95 96 95 12/30/22 16:30 Temperature Temperature Source Pulse Rate 68 Pulse Rate [Left] Respiratory Rate Blood Pressure 117/71 Blood Pressure [Right Arm] Blo
[2022-12-30 16:10] LABS: Basophils % 0.4 % (0.1-2.0); Eosinophils # 0.4 K/mm3 (0.0-0.4); Hematocrit 41.6 % (42.0-52.0); Hemoglobin 13.6 g/dL (14.1-18.0); Lymphocytes # 1.3 K/mm3 (0.7-4.5); Mean Corpuscular HGB Conc 32.6 g/dL (31.8-35.4); Mean Corpuscular Hemoglobin 29.4 pg (27.0-31.2); Mean Corpuscular Volume 90.3 fl (80-94); Mean Platelet Volume 8.3 fl (7.4-10.4); Monocytes # 0.4 K/mm3 (0.1-1.0); Monocytes % 5.6 % (1.7-9.3); Neutrophils # 4.3 K/mm3 (1.8-7.8); Neutrophils % 67.9 % (37.0-80.0); Platelet Count 288 K/mm3 (142-424); Red Blood Count 4.61 M/mm3 (4.60-6.20); Red Cell Distribution Width 14.1 % (11.5-17.5); White Blood Count 6.3 K/mm3 (4.8-10.8)
[2022-12-30 16:11] LABS: Chloride 103 mmol/L (98-107); Sodium 144 mmol/L (136-145)
[2022-12-30 16:13] LABS: Alanine Aminotransferase 22 U/L (12-78); Aspartate Amino Transferase 31 U/L (17-59); Blood Urea Nitrogen 17 mg/dl (9-20); Creatinine Clearance Estimated 60 mL/min (50-200); Estimated Glomerular Filt Rate 110 ml/min (>60); GFR (African American) 133 ML/MIN (>60)
[2022-12-30 16:14] LABS: Albumin Level 3.8 g/dl (3.5-5.0); Alkaline Phosphatase 72 U/L (38-126); Anion Gap 14.6 mEq/L (5-15); Bilirubin,Total 0.5 mg/dl (0.2-1.3); Calcium 8.6 mg/dl (8.4-10.2); Carbon Dioxide 29 mmol/L (22.0-30.0); Globulin 3.7 g/dL (1.3-3.2); Glucose 98 mg/dl (74-100); Total Protein,Serum 7.5 g/dl (6.3-8.2)
[2022-12-30 16:22] LABS: Potassium 2.6 mmoL/L (3.5-5.1)
--- NOTE | 2022-12-30 16:22 | PC.NURSE ---
Critical results, Potassium 2.6, received from lab. notified.
[2022-12-30 16:23] LABS: Lactic Acid 1.3 mmol/L (0.7-2.1)
[2022-12-30 16:39] LABS: Microscopic, Urine URINE MICROSCOPIC (MICROSCOPIC)
[2022-12-30 16:39] LABS: Coronavirus 19, PCR Not Detected (NotDetected); Influenza A, PCR Not Detected (NotDetected); Influenza B, PCR Not Detected (NotDetected)
[2022-12-30 16:48] LABS: Blood, Urine 3+ (Negative); Color,Urine YELLOW (Yellow); Glucose,Urine (UA) TRACE (Negative); Ketones,Urine Negative (Negative); Leukocyte Esterase,Urine 2+ (Negative); Nitrate,Urine POSITIVE (Negative); PH,Urine 6.5 (5.0-8.5); Protein,Urine 3+ (Negative); Specific Gravity, Urine 1.025 (1.005-1.030)
[2022-12-30 17:02] LABS: Appearance,Urine Cloudy (Clear); Bilirubin,Urine 1+ (Negative)
[2022-12-30 17:05] LABS: Bacteria,Urine 1+ /lpf; RBC,Urine TNTC #/hpf (0-3); Squamous Epithelial Cell,Urine Occasional #/hpf (0-5); WBC,Urine TNTC #/hpf (0-3)
--- NOTE | 2022-12-30 17:22 | PC.NURSE ---
call made to greenhouse specialist for bed placement
--- NOTE | 2022-12-30 18:01 | PC.NURSE ---
attempted to call report to receiving nurse, park warden states RN is in a procedure and will have her call back
--- NOTE | 2022-12-30 18:34 | PC.NURSE ---
arrived to floor by w/c from ED
--- NOTE | 2022-12-30 22:38 | EXP.HP ---
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 home health changed it found it clogged and urine looked like tea . family reported long lasting skin yeast infection in groin [facility] Disclaimer: The information contained in this section may have been updated after the patient was seen, as this information can be updated by other users. Social History Smoking Status: Never smoker alcohol intake: never current occupational status: disabled Travel in the last 8 weeks: None household members: spouse housing: house current occupational exposures/hazards: No caffeine: Yes Review of Systems Review of Systems Review of systems:: pertinent systems reviewed and negative unless documented below Constitutional Constitutional: Reports system reviewed and no additional complaints, except as documented Comments: bed ridden stroke patient , total care , lives at home with family Eyes Eyes: Reports system reviewed and no additional complaints, except as documented ENT Ears, Nose, Mouth, and Throat: Reports system reviewed and no additional complaints, except as documented *Cardiovascular Cardiovascular: Reports system reviewed and no additional complaints, except as documented *Respiratory Respiratory: Reports system reviewed and no additional complaints, except as documented *Gastrointestinal Gastrointestinal: Reports bloating Comments: chronic distended abdomen due to intestal gas for several years *Genitourinary Genitourinary: Reports difficulty urinating and Reports other (has superpubic cath for last 4 years ) *Musculoskeletal Musculoskeletal: Reports abnormal gait and Reports limited range of motion Comments: post stroke Integumentary/Breasts Skin/Breast: Reports erythema and Reports rash (red appears to be yeast buttock left leg groin ) *Neurologic Neurologic: Reports abnormal gait Psychiatric Psychiatric: Reports as per HPI Endocrine Endocrine: Reports system reviewed and no additional complaints, except as documented Hematologic/Lymphatic Hematologic/Lymphatic: Reports system reviewed and no additional complaints, except as documented Allergic/Immunologic Allergic/Immunologic: Reports system reviewed and no additional complaints, except as documented Meds Home Medications and Allergies Home Medications Medication Instructions Recorded Confirmed Type cefuroxime axetil 500 mg tablet 500 mg PO BID #14 tabs 01/14/21 Rx potassium chloride 20 mEq 20 meq PO DAILY #15 tabs 01/14/21 Rx tablet,extended release(part/cryst) vancomycin 1,000 mg intravenous 1,500 mg IV Q12H 10 days #20 vials 01/14/21 Rx injection New Prescriptions to Start Prescriptions: Allergies Allergy/AdvReac Type Severity Reaction Status Date / Time No Known Allergies Allergy Verified 05/01/18 09:12 Exam Data for Last 24 hours Vital signs and Labs for Last 24 Hours: Temp Pulse Resp BP Pulse Ox 98.2 F 61 18 173/76 H 94 L 12/30/22 20:00 12/30/22 20:00 12/30/22 20:00 12/30/22 20:00 12/30/22 20:00 Laboratory Results - last 24 hr 12/30/22 15:51: WBC 6.3, RBC 4.61, Hgb 13.6 L, Hct 41.6 L, MCV 90.3, MCH 29.4, MCHC 32.6, RDW 14.1, Plt Count 288, MPV 8.3, Neut % (Auto) 67.9, Lymph % (Auto) 20.0, [place] % (Auto) 5.6, Eos % (Auto) 6.0, Baso % (Auto) 0.4, Neut # (Auto) 4.3, Lymph # (Auto) 1.3, [place] # (Auto) 0.4, Eos # (Auto) 0.4, Baso # (Auto) 0.0 12/30/22 15:51: Sodium 144, Potassium 2.6 L*, Chloride 103, Carbon Dioxide 29, Anion Gap 14.6, BUN 17, Creatinine 0.70, Estimated Creat Clear 60, Estimated GFR 110, Est GFR ( Amer) 133, Glucose 98, Calcium 8.6, Total Bilirubin 0.5, AST 31, ALT 22, Alkaline Phosphatase 72, Tota
--- NOTE | 2022-12-30 23:01 | EXP.HP ---
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 home health changed it found it clogged and urine looked like tea . family reported long lasting skin yeast infection in groin PFSH PFS Disclaimer: The information contained in this section may have been updated after the patient was seen, as this information can be updated by other users. Social History Smoking Status: Never smoker alcohol intake: never current occupational status: disabled Travel in the last 8 weeks: None household members: spouse housing: house current occupational exposures/hazards: No caffeine: Yes Review of Systems Review of Systems Review of systems:: pertinent systems reviewed and negative unless documented below Constitutional Constitutional: Reports daytime sleepiness and Reports lethargy Eyes Eyes: Reports system reviewed and no additional complaints, except as documented ENT Ears, Nose, Mouth, and Throat: Reports system reviewed and no additional complaints, except as documented *Cardiovascular Cardiovascular: Reports system reviewed and no additional complaints, except as documented *Respiratory Respiratory: Reports system reviewed and no additional complaints, except as documented *Gastrointestinal Gastrointestinal: Reports system reviewed and no additional complaints, except as documented *Genitourinary Genitourinary: Reports urinary incontinence *Musculoskeletal Musculoskeletal: Reports abnormal gait *Neurologic Neurologic: Reports abnormal gait Psychiatric Psychiatric: Reports system reviewed and no additional complaints, except as documented Endocrine Endocrine: Reports system reviewed and no additional complaints, except as documented Hematologic/Lymphatic Hematologic/Lymphatic: Reports system reviewed and no additional complaints, except as documented Allergic/Immunologic Allergic/Immunologic: Reports system reviewed and no additional complaints, except as documented Meds Home Medications and Allergies Home Medications Medication Instructions Recorded Confirmed Type cefuroxime axetil 500 mg tablet 500 mg PO BID #14 tabs 01/14/21 Rx potassium chloride 20 mEq 20 meq PO DAILY #15 tabs 01/14/21 Rx tablet,extended release(part/cryst) vancomycin 1,000 mg intravenous 1,500 mg IV Q12H 10 days #20 vials 01/14/21 Rx injection New Prescriptions to Start Prescriptions: Allergies Allergy/AdvReac Type Severity Reaction Status Date / Time No Known Allergies Allergy Verified 05/01/18 09:12 Exam Data for Last 24 hours Vital signs and Labs for Last 24 Hours: Temp Pulse Resp BP Pulse Ox 98.2 F 61 18 173/76 H 94 L 12/30/22 20:00 12/30/22 20:00 12/30/22 20:00 12/30/22 20:00 12/30/22 20:00 Laboratory Results - last 24 hr 12/30/22 15:51: WBC 6.3, RBC 4.61, Hgb 13.6 L, Hct 41.6 L, MCV 90.3, MCH 29.4, MCHC 32.6, RDW 14.1, Plt Count 288, MPV 8.3, Neut % (Auto) 67.9, Lymph % (Auto) 20.0, [place] % (Auto) 5.6, Eos % (Auto) 6.0, Baso % (Auto) 0.4, Neut # (Auto) 4.3, Lymph # (Auto) 1.3, [place] # (Auto) 0.4, Eos # (Auto) 0.4, Baso # (Auto) 0.0 12/30/22 15:51: Sodium 144, Potassium 2.6 L*, Chloride 103, Carbon Dioxide 29, Anion Gap 14.6, BUN 17, Creatinine 0.70, Estimated Creat Clear 60, Estimated GFR 110, Est GFR ( Amer) 133, Glucose 98, Calcium 8.6, Total Bilirubin 0.5, AST 31, ALT 22, Alkaline Phosphatase 72, Total Protein 7.5, Albumin 3.8, Globulin 3.7 H, Albumin/Globulin Ratio 1.0 L 12/30/22 15:51: Lactate 1.3 12/30/22 16:27: Urine Color Yellow, Urine Appearance Cloudy, Urine pH 6.5, Ur Specific [place] 1.025, Urine Protein 3+, Urine Glucose (UA) Trace, Urine Ketones Negative, Urine Blood 3+, Urine Nitrate Positive, Urine Bilirubin 1+ A, Uri
[2022-12-31] VITALS (12 sets, daily range): BP systolic 149–170; BP diastolic 74–98; PULSE 50–66; RESP 18; TEMP 35.8–36.9; O2SAT 95–98; BMI 22.1
[2022-12-31 07:06] LABS: Basophils % 0.3 % (0.1-2.0); Eosinophils # 0.4 K/mm3 (0.0-0.4); Eosinophils % 6.1 % (0.1-12.0); Hematocrit 38.3 % (42.0-52.0); Hemoglobin 12.4 g/dL (14.1-18.0); Lymphocytes # 1.2 K/mm3 (0.7-4.5); Lymphocytes % 19.6 % (10-50); Mean Corpuscular HGB Conc 32.4 g/dL (31.8-35.4); Mean Corpuscular Hemoglobin 29.8 pg (27.0-31.2); Mean Corpuscular Volume 91.9 fl (80-94); Mean Platelet Volume 8.7 fl (7.4-10.4); Monocytes # 0.5 K/mm3 (0.1-1.0); Monocytes % 7.4 % (1.7-9.3); Neutrophils # 4.2 K/mm3 (1.8-7.8); Neutrophils % 66.6 % (37.0-80.0); Platelet Count 252 K/mm3 (142-424); Red Blood Count 4.17 M/mm3 (4.60-6.20); Red Cell Distribution Width 14.2 % (11.5-17.5); White Blood Count 6.3 K/mm3 (4.8-10.8)
[2022-12-31 07:12] LABS: Chloride 108 mmol/L (98-107); Sodium 143 mmol/L (136-145)
[2022-12-31 07:15] LABS: Alanine Aminotransferase 19 U/L (12-78); Albumin Level 3.1 g/dl (3.5-5.0); Alkaline Phosphatase 58 U/L (38-126); Anion Gap 9.6 mEq/L (5-15); Aspartate Amino Transferase 26 U/L (17-59); Blood Urea Nitrogen 14 mg/dl (9-20); Calcium 7.8 mg/dl (8.4-10.2); Carbon Dioxide 28 mmol/L (22.0-30.0); Creatinine Clearance Estimated 60 mL/min (50-200); Estimated Glomerular Filt Rate 110 ml/min (>60); GFR (African American) 133 ML/MIN (>60); Globulin 3.2 g/dL (1.3-3.2); Glucose 86 mg/dl (74-100); Total Protein,Serum 6.3 g/dl (6.3-8.2)
[2022-12-31 07:16] LABS: Magnesium 1.7 mg/dl (1.6-2.3)
[2022-12-31 07:20] LABS: Bilirubin,Total 0.1 mg/dl (0.2-1.3)
[2022-12-31 07:22] LABS: Potassium 2.6 mmoL/L (3.5-5.1)
[2022-12-31 08:10] LABS: Chloride 107 mmol/L (98-107); Sodium 143 mmol/L (136-145)
[2022-12-31 08:13] LABS: Anion Gap 8.7 mEq/L (5-15); Blood Urea Nitrogen 13 mg/dl (9-20); Calcium 7.9 mg/dl (8.4-10.2); Carbon Dioxide 30 mmol/L (22.0-30.0); Creatinine Clearance Estimated 60 mL/min (50-200); Estimated Glomerular Filt Rate 110 ml/min (>60); GFR (African American) 133 ML/MIN (>60); Glucose 95 mg/dl (74-100)
[2022-12-31 08:16] LABS: Potassium 2.7 mmoL/L (3.5-5.1)
--- NOTE | 2022-12-31 11:30 | EXP.ACUTE.PN ---
Subjective *Date: 12/31/22 *Time: 11:30 Interval history: Patient did well overnight. Remains afebrile. Urine output has improved. Urine clearing and less cloudy. Denies any nausea or vomiting. No chest pain or shortness of breath. Family at bedside on morning rounds, updated of plan. Medical Exam Vital signs and Labs for Last 24 Hours: Vital Signs Temp Pulse Pulse Resp BP BP Pulse Ox 12/31/22 11:18 98.4 F 58 L 18 169/93 H 98 12/31/22 07:25 98.4 F 54 L 18 170/78 H 97 12/31/22 04:00 50 L 12/31/22 04:00 97 F L 55 L 18 157/74 H 12/31/22 04:00 50 L 12/31/22 00:00 98.1 F 58 L 18 160/78 H 97 12/30/22 20:00 98.2 F 61 18 173/76 H 94 L 12/30/22 18:34 97.8 F 58 L 20 186/64 H 98 12/30/22 18:35 98.9 F 62 17 115/80 12/30/22 18:00 17 157/131 H 98 12/30/22 17:04 18 148/80 H 97 12/30/22 16:30 68 117/71 97 12/30/22 16:00 73 110/78 95 12/30/22 15:54 71 117/72 96 12/30/22 15:40 98.9 F 118 H 19 117/72 95 Intake and Output 12/30/22 12/31/22 12/31/22 23:59 07:59 15:59 Intake Total 200 / 200 Output Total 1500 / 2500 1000 / 2500 Balance -1300 / -2300 -1000 / -2300 Intake: Intake, Total IV Amount 200 / 200 Cefepime HCl 2 gm In 0.9 % 100 / 100 Sodium Chloride 100 ml @ 200 mls/hr IV Q8H INGRID Rx#:[id number] KCl 10mEq/100ml 100 ml @ 100 100 / 100 mls/hr IV Q1H INGRID Rx#:[id number] Output: Output, Urine Amount 1500 / 2500 1000 / 2500 Other: Number of Unmeasured Voids 0 Weight 67.84 kg 67.84 kg Patient Weight 12/31/22 23:59 Weight 67.84 kg Laboratory Results - last 24 hr 12/30/22 15:51: WBC 6.3, RBC 4.61, Hgb 13.6 L, Hct 41.6 L, MCV 90.3, MCH 29.4, MCHC 32.6, RDW 14.1, Plt Count 288, MPV 8.3, Neut % (Auto) 67.9, Lymph % (Auto) 20.0, [place] % (Auto) 5.6, Eos % (Auto) 6.0, Baso % (Auto) 0.4, Neut # (Auto) 4.3, Lymph # (Auto) 1.3, [place] # (Auto) 0.4, Eos # (Auto) 0.4, Baso # (Auto) 0.0 12/30/22 15:51: Sodium 144, Potassium 2.6 L*, Chloride 103, Carbon Dioxide 29, Anion Gap 14.6, BUN 17, Creatinine 0.70, Estimated Creat Clear 60, Estimated GFR 110, Est GFR ( Amer) 133, Glucose 98, Calcium 8.6, Total Bilirubin 0.5, AST 31, ALT 22, Alkaline Phosphatase 72, Total Protein 7.5, Albumin 3.8, Globulin 3.7 H, Albumin/Globulin Ratio 1.0 L 12/30/22 15:51: Lactate 1.3 12/30/22 16:27: Urine Color Yellow, Urine Appearance Cloudy, Urine pH 6.5, Ur Specific [place] 1.025, Urine Protein 3+, Urine Glucose (UA) Trace, Urine Ketones Negative, Urine Blood 3+, Urine Nitrate Positive, Urine Bilirubin 1+ A, Urine Urobilinogen 1.0, Ur Leukocyte Esterase 2+ A, Urine RBC Tntc, Urine WBC Tntc, Ur Squamous Epith Cells Occasional, Urine Bacteria 1+ 12/30/22 16:34: SARS-CoV-2 (PCR) Not detected, Influenza A Untype (PCR) Not detected, Influenza Type B (PCR) Not detected 12/31/22 06:34: WBC 6.3, RBC 4.17 L, Hgb 12.4 L, Hct 38.3 L, MCV 91.9, MCH 29.8, MCHC 32.4, RDW 14.2, Plt Count 252, MPV 8.7, Neut % (Auto) 66.6, Lymph % (Auto) 19.6, [place] % (Auto) 7.4, Eos % (Auto) 6.1, Baso % (Auto) 0.3, Neut # (Auto) 4.2, Lymph # (Auto) 1.2, [place] # (Auto) 0.5, Eos # (Auto) 0.4, Baso # (Auto) 0.0 12/31/22 06:34: Sodium 143, Potassium 2.6 L*, Chloride 108 H, Carbon Dioxide 28, Anion Gap 9.6, BUN 14, Creatinine 0.70, Estimated Creat Clear 60, Estimated GFR 110, Est GFR ( Amer) 133, Glucose 86, Calcium 7.8 L, Magnesium 1.7, Total Bilirubin 0.1 L, AST 26, ALT 19, Alkaline Phosphatase 58, Total Protein 6.3, Albumin 3.1 L D, Globulin 3.2, Albumin/Globulin Ratio 1.0 L 12/31/22 07:52: Sodium 143, Potassium 2.7 L*, Chloride 107, Carbon Dioxide 30, Anion Gap 8.7, BUN 13, Creatinine 0.70, Estimated Creat Clear 60, Estimated GFR 110, Est GFR ( Amer) 133, Glucose 95, Calcium 7.9 L I & O for Labs for Last 24 Hours: Intake & Output 12/28/22 12/29/22 12/30/22 12/31/22 23:59 23:59 23:59 23:59 Intake Total 200 / 200 Output To
--- NOTE | 2022-12-31 11:52 | HMH.PHAINT1 ---
Pharmacy Intervention Comments: MEDICATION RECONCILIATION COMPLETE USING EXTERNAL PHARMACY FILL HISTORY AND PATIENT INTERVIEW. PER JAKE RICCI, PATIENT STATES HE DOES NOT TAKE ANY MEDICATIONS AT HOME.
--- NOTE | 2022-12-31 13:58 | PC.NURSE ---
Diltiazem drip titrated to 5 ml/hr. EKG obtained due to rhythm change. Dr. Escamilla notified.
--- NOTE | 2022-12-31 16:31 | PC.NURSE ---
VS stable. No pain reported. Patient remained on room air. Potassium replaced orally and by IV. Urine clear, yellow. No other needs verbalized.
--- NOTE | 2022-12-31 17:09 | PC.NURSE ---
[address]00 [address] PATIENT AWAKE RESTING IN BED WITH VISITOR AT BED SIDE . TRASH EMPTIED AND ICE WATER REFILLED . CALL LIGHT WITHIN REACH .
[2022-12-31 19:20] LABS: Chloride 107 mmol/L (98-107); Potassium 3.7 mmoL/L (3.5-5.1); Sodium 141 mmol/L (136-145)
[2022-12-31 19:22] LABS: Blood Urea Nitrogen 12 mg/dl (9-20); Creatinine Clearance Estimated 60 mL/min (50-200); Estimated Glomerular Filt Rate 131 ml/min (>60); GFR (African American) 159 ML/MIN (>60)
[2022-12-31 19:23] LABS: Anion Gap 13.7 mEq/L (5-15); Calcium 8.3 mg/dl (8.4-10.2); Carbon Dioxide 24 mmol/L (22.0-30.0); Glucose 98 mg/dl (74-100)
[2023-01-01] VITALS: PULSE 51
[2023-01-01 04:00] VITALS: BP 179/94; PULSE 54; RESP 18; TEMP 36.3; O2SAT 93; BMI 22.1
--- NOTE | 2023-01-01 06:29 | PC.NURSE ---
urine culture results reported by lab, name and verified, notified GAMALIEL Cook, no new orders at this time.
[2023-01-01 07:42] VITALS: BP 173/87; PULSE 62; RESP 18; TEMP 36.7; O2SAT 96
[2023-01-01 07:42] LABS: Basophils % 0.2 % (0.1-2.0); Eosinophils # 0.3 K/mm3 (0.0-0.4); Eosinophils % 5.5 % (0.1-12.0); Hematocrit 40.7 % (42.0-52.0); Hemoglobin 13.3 g/dL (14.1-18.0); Lymphocytes # 1.1 K/mm3 (0.7-4.5); Mean Corpuscular HGB Conc 32.5 g/dL (31.8-35.4); Mean Corpuscular Hemoglobin 30.1 pg (27.0-31.2); Mean Corpuscular Volume 92.4 fl (80-94); Mean Platelet Volume 8.2 fl (7.4-10.4); Monocytes # 0.4 K/mm3 (0.1-1.0); Monocytes % 6.1 % (1.7-9.3); Neutrophils # 4.3 K/mm3 (1.8-7.8); Neutrophils % 70.2 % (37.0-80.0); Platelet Count 245 K/mm3 (142-424); Red Blood Count 4.41 M/mm3 (4.60-6.20); Red Cell Distribution Width 14.3 % (11.5-17.5); White Blood Count 6.2 K/mm3 (4.8-10.8)
[2023-01-01 07:55] LABS: Chloride 108 mmol/L (98-107); Potassium 3.1 mmoL/L (3.5-5.1); Sodium 142 mmol/L (136-145)
[2023-01-01 07:58] LABS: Anion Gap 12.1 mEq/L (5-15); Blood Urea Nitrogen 13 mg/dl (9-20); Calcium 8.3 mg/dl (8.4-10.2); Carbon Dioxide 25 mmol/L (22.0-30.0); Creatinine Clearance Estimated 60 mL/min (50-200); Estimated Glomerular Filt Rate 131 ml/min (>60); GFR (African American) 159 ML/MIN (>60); Glucose 105 mg/dl (74-100); Magnesium 1.9 mg/dl (1.6-2.3)
[2023-01-01 08:00] VITALS: PULSE 60
--- NOTE | 2023-01-01 09:04 | PC.NURSE ---
COURTESY ROUND PATIENT AWAKE WITH AT BEDSIDE. ASSISTED OTHER SANJANA WITH CHANGING . TRASH AND LINENS EMPTIED . ICE WATER REFILLED . PATIENT'S VOICED NO OTHER NEEDS. CALL LIGHT WITHIN REACH
--- NOTE | 2023-01-01 10:39 | EXP.DC.SUM ---
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 He has an indwelling suprapubic catheter and has had multiple urinary tract infections including multidrug-resistant Pseudomonas.? His daughter is here at the bedside state that he had significant sediment and lack of flow from his suprapubic catheter and had significant overflow around the catheter until a New catheter was placed this morning.? Once a new catheter was placed there was flow and significant sediment in the Siddiqui catheter bag. The most recent suprapubic catheter that was replaced was less than 1 month ago prior to this new and today.? The patient has not had any objective fevers but is unable to articulate further symptoms. 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 Presents with concern for UTI given abnormal urine when catheter was exchanged the day before admission. Patient is afebrile.? Improved urine output.? poassium improved. Meeting criteria for DC home. Problems addressed as follows: Catheter associated UTI -Initiated on Cefepime. urinalysis grossly abnormal on admission. Urine culture returned positive for staph aureus. Sensitive to Bactrim. Transitiioned to Oral bactrim to complete 7 days of antibiotics. Remained afebrile with normal white cell count. Hypokalemia Hypomagnesemia -Low on admission. Monitored daily with Oral and IV repletion. levels normalized by DC. Continue potassium supplementation for the next 10 days. repeat labs in the next 2 weeks to monitor K and Mg levels along with Creatinine History of stroke, complicates his care.? Residual chronic deficits.? Cared for at home by family, they appear to have been doing a good job caring for him given his current state and no significant breakdown of skin. Stable for DC home with family care and Home Health Exam Data for Last 24 hours Vital signs and Labs for Last 24 Hours: Temp Pulse Resp BP Pulse Ox 98.1 F 62 18 173/87 H 96 01/01/23 07:42 01/01/23 07:42 01/01/23 07:42 01/01/23 07:42 01/01/23 07:42 Laboratory Results - last 24 hr 12/31/22 18:10: Sodium 141, Potassium 3.7 D, Chloride 107, Carbon Dioxide 24, Anion Gap 13.7, BUN 12, Creatinine 0.60 L, Estimated Creat Clear 60, Estimated GFR 131, Est GFR ( Amer) 159, Glucose 98, Calcium 8.3 L, Magnesium 2.0 D 01/01/23 07:00: WBC 6.2, RBC 4.41 L, Hgb 13.3 L, Hct 40.7 L, MCV 92.4, MCH 30.1, MCHC 32.5, RDW 14.3, Plt Count 245, MPV 8.2, Neut % (Auto) 70.2, Lymph % (Auto) 18.0, [place] % (Auto) 6.1, Eos % (Auto) 5.5, Baso % (Auto) 0.2, Neut # (Auto) 4.3, Lymph # (Auto) 1.1, [place] # (Auto) 0.4, Eos # (Auto) 0.3, Baso # (Auto) 0.0 01/01/23 07:00: Sodium 142, Potassium 3.1 L, Chloride 108 H, Carbon Dioxide 25, Anion Gap 12.1, BUN 13, Creatinine 0.60 L, Estimated Creat Clear 60, Estimated GFR 131, Est GFR ( Amer) 159, Glucose 105 H, Calcium 8.3 L, Magnesium 1.9 I & O for Last 24 hours: Intake & Output 12/29/22 12/30/22 12/31/22 01/01/23 23:59 23:59 23:59 23:59 Intake Total 1250 / 1250 240 / 240 Output Total 4800 / 4800 750 / 750 Balance -3550 / -3550 -510 / -510 Weight 67.84 kg 67.84 kg 67.84 kg Microbiology Reports for the Last 24 Hours: Microbiology 12/30/22 16:34 Urine,Catheterized Urine Culture - Final Staphylococcus aureus Constitutional Constitutional: no acute distress, average body habitus and chronically ill appearing *Routine HEENT Exam Head: Present normocephalic Eye: Present EOMI and PERRL ENT: Present mucous membranes moist *Routine Neck Exam Neck: Present supple; Absent lymphadenopathy *Routine Respiratory Exam Respiratory: Present CTA bilateral
--- NOTE | 2023-01-01 11:15 | HMH.PHAINT1 ---
Pharmacy Intervention Comments: DISCHARGE MEDICATION COUNSELING PROVIDED. DISCUSSED THE FOLLOWING NEW MEDICATIONS: -POTASSIUM (DAILY, TAKE WITH FOOD, MAY UPSET STOMACH, WATCH FOR ELEVATED POTASSIUM LEVELS VIA MUSCLE PAIN/WEAKNESS, IRREGULAR HEARTBEAT/FLUTTERING IN CHEST AND ADVISED TO GO TO ER IF ANY SYMPTOMS PRESENT) -BACTRIM (ANTIBIOTIC, TWICE DAILY, RASH, PHOTOSENSITIVITY, UPSET STOMACH, ELEVATED POTASSIUM LEVELS POSSIBLE). NO QUESTIONS VERBALIZED AT THIS TIME.
--- NOTE | 2023-01-02 11:19 | SW/DCPLANNER ---
Patient admitted and discharged over the weekend. MD has entered orders for home health services for this patient. I attempted to contact patient w/ no answer at this time. I will continue to try to get in contact w/ patient today.
== END 2023-01-01 13:11 | disposition home health service (06) ==
LOC: ER 17:01 → 2ND 17:45
PROVIDERS: Admitting Provider Internal Medicine Adolescent Medicine; Emergency Provider Student in an Organized Health Care Education/Training Program; PCP Family Medicine; Visit Provider Internal Medicine Adolescent Medicine
DX: T83.518A Infection and inflammatory reaction due to other urinary catheter, initial encounter (principal); I69.3 Sequelae of cerebral infarction; K59.81 Ogilvie syndrome; N31.9 Neuromuscular dysfunction of bladder, unspecified; E87.6 Hypokalemia; N39.0 Urinary tract infection, site not specified; B95.62 Methicillin resistant Staphylococcus aureus infection as the cause of diseases classified elsewhere; I69.398 Other sequelae of cerebral infarction
CPT/HCPCS: G0378; 36415; 80048; 80053; 81001; 83605; 83735; 85025; 87040; 87086; 87088; 87186; 87636; 99285; C9803; J0692; J3475; U0003; U0005

== ENCOUNTER → 2023-03-10 14:49 | Outpatient (CLI) | payer MEDICARE, SELFPAY ==
--- NOTE | 2023-03-10 15:02 | XR_ITS ---
FINAL REPORT CLINICAL HISTORY: URINARY RETENTION FINDINGS: ABDOMEN SINGLE VIEW There is a distended air-filled colon, favor an ileus. Distal colonic obstruction is not entirely excluded. No abnormal calcification is seen. IMPRESSION: Distended air-filled colon, favor an ileus but distal colonic obstruction not entirely excluded. Recommend follow-up radiographs. Reviewed, Interpreted and Dictated by Darian Lei III, MD Transcribed by Brenda Saavedra Authenticated and [facility]
== END ==
PROVIDERS: PCP Family Medicine; Visit Provider Family Medicine
DX: R33.9 Retention of urine, unspecified (principal)
CPT/HCPCS: 74018

== ENCOUNTER → 2023-03-14 12:04 | Outpatient (CLI) | payer MEDICARE, SELFPAY ==
--- NOTE | 2023-03-14 12:15 | XR_ITS ---
FINAL REPORT CLINICAL HISTORY: abd distention FINDINGS: A PA view of the chest was obtained. There is elevation of the right hemidiaphragm. There is bibasilar atelectasis. There is no free air beneath the diaphragm. Upright and supine views of the abdomen reveal multiple air-filled distended bowel loops, favor an ileus. The ascending colon measures up to 17 cm. There are degenerative changes in the spine and pelvis. IMPRESSION: Findings favored to represent an ileus. Reviewed, Interpreted and Dictated by Darian Lei III, MD Transcribed by Brenda Saavedra Authenticated and [facility]
== END ==
PROVIDERS: PCP Family Medicine; Visit Provider Internal Medicine Infectious Disease
DX: R14.0 Abdominal distension (gaseous) (principal)
CPT/HCPCS: 74021

== ENCOUNTER 2023-05-08 15:49 | Emergency (ER) | payer MEDICARE, SELFPAY ==
[2023-05-08 16:20] VITALS: BP 138/76; PULSE 72; RESP 16; TEMP 36.6; O2SAT 96; BMI 23.6
--- NOTE | 2023-05-08 16:41 | EXP.UTC ---
Discharge Plan Disposition Patient Disposition: Home, Self-Care Condition: Good Prescriptions Prescriptions: New amoxicillin-pot clavulanate 875-125 mg Tablet 1 tab PO Q12H Qty: 20 0RF Referrals Follow up/Referrals: Provider,Referral, [Primary Care Provider] - See instructions Activity Restrictions/Add. Instructions Additional Instructions/Restrictions: Eat some yogurt to help coat stomach and prevent gi upset Over the counter Probiotic may help prevent stomach upset from antibiotics Take antibiotics as prescribed Follow up with Dentist as advised Clinical Impressions Clinical Impression: Abscess, dental Instructions Patient Instructions: DI for Tooth Abscess, Tooth Abscess Discharge ED Provider: Erin Agustin Qiana [facility] HPI General Stated complaint: Dental pain Mode of Arrival: Ambulatory Source of Information: Patient Limitations: No Limitations Time Seen by Provider: 05/08/23 16:41 Description of Symptoms (Recalled from Triage Doc. by RN): PATIENT C/O PAIN TO LEFT BOTTOM TOOTH SINCE MONDAY HEENT Symptoms (Recalled from RN notes): Yes Resp Symptoms (Recalled from RN notes): No Skin Symptoms (Recalled from RN notes): No MS Symptoms (Recalled from RN notes): No Functional Status (Recalled from RN notes): WNL History of Present Illness Provider Complaint: Family states that patient was recently seen and treated for UTI and finished Augmentin States that they noticed on Monday that he was having some swelling to his left lower gumline and he has several teeth there that is broken off at the gumline States that today they noticed his jaw area was more swollen and called the dentist and they told them to bring him here to get on antibiotics before they could see him Related Data Previous Rx's Medication Instructions Recorded amoxicillin 875 mg-potassium 1 tab PO Q12H #20 tabs 05/08/23 clavulanate 125 mg tablet Allergies Allergy/AdvReac Type Severity Reaction Status Date / Time No Known Allergies Allergy Verified 05/01/18 09:12 Worker's Comp Is this a Worker's Comp case?: No [facility] Disclaimer: The information contained in this section may have been updated after the patient was seen, as this information can be updated by other users. Medical History (Updated 05/08/23 @ 16:52 by Erin Agustin APRN) MRSA (methicillin resistant Staphylococcus aureus) septicemia Pseudomonas urinary tract infection Social History Smoking Status: Never smoker alcohol intake: never current occupational status: disabled Travel in the last 8 weeks: None household members: spouse housing: house current occupational exposures/hazards: No caffeine: Yes ROS Obtained: Yes All systems reviewed & no additional complaints except as documented and Yes Systems reviewed as appropriate & no additional complaints except as documented Constitutional Constitutional: Reports system reviewed and no additional complaints, except as documented and Reports as per HPI ENT Ears, Nose, Mouth, and Throat: Reports system reviewed and no additional complaints, except as documented, Reports as per HPI and Reports dental pain Cardiovascular Cardiovascular: Reports system reviewed and no additional complaints, except as documented and Reports as per HPI Respiratory Respiratory: Reports system reviewed and no additional complaints, except as documented and Reports as per HPI Gastrointestinal Gastrointestingal: Reports system reviewed and no additional complaints, except as documented and as per HPI Physical Exam General General appearance: alert and in no apparent distress Expanded ENT Exam Teeth exam: Present dental caries, fractured tooth #, gingival swelling and other (swelling in left lower jaw area with multiple teeth broken off at gumline) Respiratory Respiratory exam: Present normal lung sounds bilaterally; Absent respiratory distress or wheezes Cardiovascula
[2023-05-08 16:53] VITALS: BP 138/76; PULSE 72; RESP 16; TEMP 36.6; O2SAT 96
== END 2023-05-08 16:55 | disposition home or self-care (01) ==
PROVIDERS: Emergency Provider Nurse Practitioner
DX: K04.7 Periapical abscess without sinus (principal)
CPT/HCPCS: 99204; 99212; G0463

== ENCOUNTER 2023-12-14 10:54 | Emergency (ER) | payer MEDICARE, SELFPAY ==
[2023-12-14 11:20] VITALS: BP 117/74; PULSE 71; RESP 17; TEMP 37.3; O2SAT 96; BMI 25.8
[2023-12-14 11:26] VITALS: BP 118/69; PULSE 69; RESP 16; TEMP 36.7; O2SAT 97; BMI 25.8
--- NOTE | 2023-12-14 11:30 | PC.NURSE ---
PATIENT SENT TO ER PER Doe CARSON APRN FOR FURTHER EVALUATION. REPORT GIVEN TO DR. HOYOS BY Doe CARSON APRN. PATIENT TRANSPORTED TO ER VIA WHEELCHAIR WITH [facility] STAFF AND PATIENT'S FAMILY ASSIST. PATIENT'S AND DAUGHTER AT BEDSIDE.
--- NOTE | 2023-12-14 11:39 | EXP.UTC ---
Discharge Plan Disposition Patient Disposition: Home, Self-Care Prescriptions Prescriptions: New mupirocin 2 % ointment 1 applic topical BID 5 Days Qty: 22 0RF No Action amoxicillin-pot clavulanate 875-125 mg Tablet 1 tab PO Q12H Qty: 20 0RF Referrals Follow up/Referrals: Provider,MD Bayron [Primary Care Provider] - See instructions Tavares Hines MD [Staff Physician] - See instructions Activity Restrictions/Add. Instructions Additional Instructions/Restrictions: Call your family doctor to establish care for this visit to the emergency department and schedule follow-up within 48 hours to ensure improvement. If you have any worsening of your condition or any other concerning signs or symptoms, return to the emergency department or your primary care doctor for further evaluation. Dr. Phillips's information here and to schedule follow-up family care and help coordinate home health, etc. If blood cultures are positive, you will be contacted and antibiotics will be called in. Clinical Impressions Clinical Impression: Acute blistering eruption of skin Instructions Patient Instructions: DI for Skin Abscess Discharge ED Provider: Greg Arroyo [facility] General Chief complaint: Skin/Abscess/Foreign Body Stated complaint: skin infection/ all over Mode of Arrival: Ambulatory Source of Information: Spouse Limitations: No Limitations Time Seen by Provider: 12/14/23 11:30 Description of Symptoms (Recalled from Triage Doc. by RN): PATIENT'S REPORTS OPEN SORES TO RLE AND ABDOMEN THAT SHE IS WORRIED ARE NOT HEALING PROPERLY. SHE REPORTS HE HAS BEEN ON 2 ROUNDS OF BACTRIM SINCE 11/01/23. SHE STATES HIS COLOSTOMY BAG HAS BEEN LEAKING AND RUNNING INTO GROIN AREA AND AROUND HIS JOSHUA CATHETER. ALSO REPORTS PATIENT PULLED OUT HIS JOSHUA CATHETER LAST NIGHT, WHICH SHE REPLACED. 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 States he has a joshua cath and had Colostomy placed in Dec States that at times he gets confused and will pull off his colostomy bag or peel it up and the contents will run down on his skin and into his groin area around his joshua cath States for about a month he has been having blister like lesions coming up on his skin all over his body and will turn into sores and he has been on Bactrim twice for it but does not feel like it is clearing it up and keeps coming back and getting worse States last night as they was getting him out of the shower a family member stepped on his his joshua and pulled it out so she had them lay him down and she replaced it states I have watched the nurse do it several times and so I did it and got urine return and said there was initially some blood in his urine but since it seems like it has cleared up States she spoke with the home care nurse and so they brought him in worried the infection may be getting worse Related Data Previous Rx's Medication Instructions Recorded amoxicillin 875 mg-potassium 1 tab PO Q12H #20 tabs 05/08/23 clavulanate 125 mg tablet mupirocin 2 % topical ointment 1 applic topical BID 5 days #22 12/14/23 grams Allergies Allergy/AdvReac Type Severity Reaction Status Date / Time No Known Allergies Allergy Verified 05/01/18 09:12 Worker's Comp Is this a Worker's Comp case?: No [facility] Disclaimer: The information contained in this section may have been updated after the patient was seen, as this information can be updated by other users. Medical History (Updated 12/14/23 @ 13:00 by Greg Arroyo MD) MRSA (methicillin resistant Staphylococcus aureus) septicemia Pseudomonas urinary tract infection Social History Smoking Status: Never smoker alcohol intake: never current occupational status: disabled Travel in the last 8 weeks: None household members: spouse housing: house current occupational exposures/hazards: No caffeine: Yes ROS Obtained: Yes All systems reviewed & no additional complaints except as documented and Yes Systems reviewed as appropriate & no additional complaints except as documented Constitutional Constitutional: Reports system reviewed and no additional complaints, except as documented, Reports as per HPI, Denies body ache and Denies chills ENT Ears, Nose, Mouth, and Throat: Reports system reviewed and no additional complaints, except as documented and Reports as per HPI Cardiovascular Cardiovascular: Reports system reviewed and no additional complaints, except as documented and Reports as per HPI Respiratory Respiratory: Reports system reviewed and no additional complaints, except as documented and Reports as per HPI Gastrointestinal Gastrointestingal: Reports system reviewed and no additional complaints, except as documented and as per HPI Comments: has colostomy bag Genitourinary Male Genitourinary: Reports system reviewed and no additional complaints, except as documented, Reports as per HPI and Reports other (has joshua cath) Integumentary/Breasts Skin/Breast: Reports system reviewed and no additional complaints, except as documented and Reports as per HPI Comments: reports problems with skin infection for about a month has had blisters and open lesions all over his body, on his abdomen and worse on his right leg that he has been on antibiotics for x 2 reports some has cleared with antibiotics and some has not Physical Exam General General appearance: alert and in no apparent distress Comment: Patient will smile at staff Respiratory Respiratory exam: Present normal lung sounds bilaterally; Absent respiratory distress Cardiovascular Cardiovascular exam: Present regular rate Neurological Exam Neurological exam: Present alert Expanded Skin Exam Body image: 1. open area noted noted appears like open blister Medical Decision Making Phi Inquiry Pt receiving controlled substance: No Phi was queried for this patient: No Vital Signs: 12/14/23 11:20 Temperature 99.1 F Temperature Source Oral Pulse Rate [Left Brachial] 71 Respiratory Rate 17 Blood Pressure [Left Arm] 117/74 Blood Pressure Mean [Left Arm] 88 Blood Pressure Source [Left Arm] Automatic Cuff Blood Pressure Position [Left Arm] Sitting 02 Sat by Pulse Oximetry 96 Oxygen Delivery Method Room Air Lab Data 12/14/23 11:50 12/14/23 11:50 Orders (Tests/Meds): ORDERS Category Date Time Status CBC w/Auto Diff [Complete Blood Count Auto Diff] Stat Lab 12/14/23 11:26 Ordered CMP [Comprehensive Metabolic Panel] Stat Lab 12/14/23 11:26 Ordered Lactic Acid Stat Lab 12/14/23 11:26 Ordered Blood Culture Stat Micro 12/14/23 11:26 Ordered Medical Decision Narrative: Discussed with family due to patient being chronically ill with colostomy and joshua and concern for infection will transfer to the ED for more complex work up and treatment and they agreed spoke with ED and patient to be moved to the Ed for treatment and testing
[2023-12-14 11:53] VITALS: BP 118/69; PULSE 69; RESP 16; TEMP 36.7; O2SAT 97; BMI 25.7
--- NOTE | 2023-12-14 11:58 | PC.NURSE ---
ER collected 1st set of blood cultures, called lab to collect the 2nd set
[2023-12-14 12:05] LABS: Basophils # 0.1 K/mm3 (0-0.2); Basophils % 0.8 % (0.1-2.0); Eosinophils # 0.5 K/mm3 (0.0-0.4); Eosinophils % 7.3 % (0.1-12.0); Hematocrit 38.9 % (42.0-52.0); Hemoglobin 11.9 g/dL (14.1-18.0); Lymphocytes # 1.2 K/mm3 (0.7-4.5); Lymphocytes % 17.6 % (10-50); Mean Corpuscular HGB Conc 30.7 g/dL (31.8-35.4); Mean Corpuscular Hemoglobin 27.9 pg (27.0-31.2); Mean Corpuscular Volume 90.9 fl (80-94); Mean Platelet Volume 8.3 fl (7.4-10.4); Monocytes # 0.5 K/mm3 (0.1-1.0); Neutrophils # 4.5 K/mm3 (1.8-7.8); Neutrophils % 67.3 % (37.0-80.0); Platelet Count 290 K/mm3 (142-424); Red Blood Count 4.28 M/mm3 (4.60-6.20); Red Cell Distribution Width 16.3 % (11.5-17.5); White Blood Count 6.6 K/mm3 (4.8-10.8)
[2023-12-14 12:32] LABS: Chloride 110 mmol/L (98-107); Potassium 4.7 mmoL/L (3.5-5.1); Sodium 144 mmol/L (136-145)
[2023-12-14 12:34] LABS: Alanine Aminotransferase 36 U/L (12-78); Aspartate Amino Transferase 47 U/L (17-59); Blood Urea Nitrogen 21 mg/dl (9-20); Creatinine Clearance Estimated 71 mL/min (50-200); Estimated Glomerular Filt Rate 109 ml/min (>60); GFR (African American) 132 ML/MIN (>60)
[2023-12-14 12:35] LABS: Albumin Level 4.1 g/dl (3.5-5.0); Albumin/Globulin Ratio 0.9 (1.1-1.8); Alkaline Phosphatase 94 U/L (38-126); Anion Gap 10.7 mEq/L (5-15); Bilirubin,Total 0.4 mg/dl (0.2-1.3); Calcium 9.2 mg/dl (8.4-10.2); Carbon Dioxide 28 mmol/L (22.0-30.0); Globulin 4.4 g/dL (1.3-3.2); Glucose 101 mg/dl (74-100); Total Protein,Serum 8.5 g/dl (6.3-8.2)
[2023-12-14 12:44] LABS: Lactic Acid 1.4 mmol/L (0.7-2.1)
--- NOTE | 2023-12-14 12:52 | ED_ITS ---
Discharge Plan Disposition Patient Disposition: Home, Self-Care Prescriptions Prescriptions: New mupirocin 2 % ointment 1 applic topical BID 5 Days Qty: 22 0RF No Action amoxicillin-pot clavulanate 875-125 mg Tablet 1 tab PO Q12H Qty: 20 0RF Referrals Follow up/Referrals: Provider,MD Bayron [Primary Care Provider] - See instructions Tavares Hines MD [Staff Physician] - See instructions Activity Restrictions/Add. Instructions Additional Instructions/Restrictions: Call your family doctor to establish care for this visit to the emergency department and schedule follow-up within 48 hours to ensure improvement. If you have any worsening of your condition or any other concerning signs or symptoms, return to the emergency department or your primary care doctor for further evaluation. Dr. Phillips's information here and to schedule follow-up family care and help coordinate home health, etc. If blood cultures are positive, you will be contacted and antibiotics will be called in. Clinical Impressions Clinical Impression: Acute blistering eruption of skin Instructions Patient Instructions: DI for Skin Abscess Discharge ED Provider: Greg Arroyo General Adult HPI General Chief complaint: Skin/Abscess/Foreign Body Stated complaint: skin infection/ all over Time Seen by Provider: 12/14/23 11:30 Mode of Arrival: Ambulatory Source of Information: Spouse Limitations: No Limitations Description of Symptoms (Recalled from ER Triage Doc. by RN): PATIENT'S REPORTS OPEN SORES TO RLE AND ABDOMEN THAT SHE IS WORRIED ARE NOT HEALING PROPERLY. SHE REPORTS HE HAS BEEN ON 2 ROUNDS OF BACTRIM SINCE 11/01/23. SHE STATES HIS COLOSTOMY BAG HAS BEEN LEAKING AND RUNNING INTO GROIN AREA AND AROUND HIS JOSHUA CATHETER. ALSO REPORTS PATIENT PULLED OUT HIS JOSHUA CATHETER LAST NIGHT, WHICH SHE REPLACED. History of Present Illness HPI narrative: Is a pleasant 78-year-old male history of stroke, neurogenic bladder with suprapubic Joshua placement, nonambulatory, lower extremity weakness, history of MDR Pseudomonas and MRSA infections presenting with sores family states that patient has had sores on and off for the last month that they described as blisters. Was on a week of Bactrim in October, sores seem to improve at that time. They continued to return, was on another week of Bactrim, they seem to get better again. Returns with concern for sores. Allegedly on chest, back, abdomen, feet, places of pressure and place without pressure. No change in mental status, color, tone, breathing, oral intake, ostomy output, fevers, or other concerns. Please note that above description of symptoms, in this electronic medical record under categorization of recalled from ER triage doctor by RN are reflective of an initial nursing assessment, however, is not reflective of my full history and physical exam that was personally taken and clarified. Consequentially, this preceding description of symptoms, which may include the patient's categorized chief complaint in the EMR, do not reflect my personal clinical impression, and the ultimate description of history of present illness and patient stated complaints should be deferred to this section of the note. Unless stated otherwise or congruent with this section of the note, additional signs, symptoms, or incongruence should be interpreted as inaccurate with my clinical impression. Related Data Previous Rx's Medication Instructions Recorded amoxicillin 875 mg-potassium 1 tab PO Q12H #20 tabs 05/08/23 clavulanate 125 mg tablet mupirocin 2 % topical ointment 1 applic topical BID 5 days #22 12/14/23 grams Allergies Allergy/AdvReac Type Severity Reaction Status Date / Time No Known Allergies Allergy Verified 05/01/18 09:12 [facility] Disclaimer: The information contained in this section may have been updated after the patient was seen, as this information can be updated by other users. Medical History (Updated 12/14/23 @ 13:00 by Greg Arroyo MD) MRSA (methicillin resistant Staphylococcus aureus) septicemia Pseudomonas urinary tract infection Social History Smoking Status: Never smoker alcohol intake: never current occupational status: disabled Travel in the last 8 weeks: None household members: spouse housing: house current occupational exposures/hazards: No caffeine: Yes ROS Obtained: Yes All systems reviewed & no additional complaints except as documented Physical Exam General General appearance: alert and in no apparent distress Head Head exam: atraumatic and normocephalic Eye Eye exam: Present normal appearance, PERRL and EOMI ENT ENT exam: Present mucous membranes moist Neck Neck exam: Present normal inspection, full ROM and trachea midline Respiratory Respiratory exam: Present normal lung sounds bilaterally; Absent respiratory distress, wheezes, stridor, accessory muscle use or prolonged expiratory phase Cardiovascular Cardiovascular exam: Present regular rate and normal rhythm Abdominal Exam Abdominal exam: Present soft; Absent distention, tenderness, guarding, rebound or rigidity Comment: Ostomy in place, no obvious blisters. Joshua catheter in place suprapubic Extremities Exam Extremities exam: Absent edema Neurological Exam Neurological exam: Present alert, oriented X3, CN II-XII intact and normal gait; Absent motor sensory deficit Skin Skin exam: Present warm, dry and rash (Small scabs throughout trunk, upper and lower extremities. No obvious blistering. Reportedly, these were previously blisters.); Absent intact (3 cm circular lesion on lateral aspect of the left fibula which appears to be a pressure sore versus desquamated blister.), diaphoresis or erythema Medical Decision Making Medical Records Medical records reviewed: Yes I reviewed the patient's medical records. Phi Inquiry Pt receiving controlled substance: No Phi was queried for this patient: No Vital Signs: 12/14/23 11:20 12/14/23 11:26 Temperature 99.1 F 98.1 F Temperature Source Oral Oral Pulse Rate [Left Brachial] 71 69 Respiratory Rate 17 16 Blood Pressure [Left Arm] 117/74 118/69 Blood Pressure Mean [Left Arm] 88 85 Blood Pressure Source [Left Arm] Automatic Cuff Blood Pressure Position [Left Arm] Sitting 02 Sat by Pulse Oximetry 96 97 Oxygen Delivery Method Room Air Room Air Lab Data Lab Results 12/14/23 11:50: WBC 6.6, RBC 4.28 L, Hgb 11.9 L, Hct 38.9 L, MCV 90.9, MCH 27.9, MCHC 30.7 L, RDW 16.3, Plt Count 290, MPV 8.3, Neut % (Auto) 67.3, Lymph % (Auto) 17.6, [place] % (Auto) 7.0, Eos % (Auto) 7.3, Baso % (Auto) 0.8, Neut # (Auto) 4.5, Lymph # (Auto) 1.2, [place] # (Auto) 0.5, Eos # (Auto) 0.5 H, Baso # (Auto) 0.1, Sodium 144, Potassium 4.7, Chloride 110 H, Carbon Dioxide 28, Anion Gap 10.7, BUN 21 H, Creatinine 0.70, Estimated Creat Clear 71, Estimated GFR 109, Est GFR ( Amer) 132, Glucose 101 H, Calcium 9.2, Total Bilirubin 0.4, AST 47, ALT 36, Alkaline Phosphatase 94, Total Protein 8.5 H D, Albumin 4.1, Globulin 4.4 H, Albumin/Globulin Ratio 0.9 L 12/14/23 12:21: Lactate 1.4 12/14/23 11:50 12/14/23 11:50 Orders (Tests/Meds): ORDERS Category Date Time Status CBC w/Auto Diff [Complete Blood Count Auto Diff] Stat Lab 12/14/23 11:50 Completed CMP [Comprehensive Metabolic Panel] Stat Lab 12/14/23 11:50 Completed Lactic Acid Stat Lab 12/14/23 12:21 Completed Blood Culture Stat Micro 12/14/23 12:21 Received Medical Decision Narrative: Is a pleasant 78-year-old male history of stroke, neurogenic bladder with suprapubic Joshua placement, nonambulatory, lower extremity weakness, history of MDR Pseudomonas and MRSA infections presenting with sores family states that patient has had sores on and off for the last month that they described as blisters. Was on a week of Bactrim in October, sores seem to improve at that time. They continued to return, was on another week of Bactrim, they seem to get better again. Returns with concern for sores. Allegedly on chest, back, abdomen, feet, places of pressure and place without pressure. No change in mental status, color, tone, breathing, oral intake, ostomy output, fevers, or other concerns. History was obtained via conversation with patient's family and chart review. On arrival, patient hemodynamically stable, alert, oriented x4, appropriate, GCS 15, moving all extremities spontaneously, pupils equal and reactive to light. Full physical exam performed and significant for intermittent sores on body which are subcentimeter, allegedly were previously blisters. I do not appreciate any blisters currently. Patient's abdomen is soft, nontender, nondistended. Ostomy bag and suprapubic Joshua appear uncomplicated. Afebrile, normotensive, nontachycardic, chronically ill, but acutely well appearing. Differential includes MRSA skin and soft tissue infections, Pseudomonas skin and soft tissue infections, colonization, pressure ulcers, among others. Workup independently interpreted and significant for nonactionable CBC, chemistry, lactate, and blood cultures pending at time of discharge. Patient remains at baseline on reevaluation. Conversation was had with patient family regarding outpatient wound management care, talk to the family doctor about home health, placement, etc. Given patient presentation, workup, history, this most likely represents pressure ulcers versus skin and soft tissue infections. Because nothing looks acutely infected, I feel patient is appropriate for outpatient decolonization. Mupirocin, chlorhexidine and outpatient family medicine management. Because patient at baseline without signs or symptoms of clinical decompensation, deemed appropriate for discharge. Results were relayed to patient family who voiced understanding and were agreeable to outpatient management and follow up. I discussed my clinical impression with patient family and answered all questions. At this time, the evidence for any other entities in the differential is insufficient to warrant any further testing or ED observation. This was explained as well. Advisory was given that persistent or worsening symptoms require further evaluation. I confirmed the understanding of this discussion. Manager Telemarketing disclaimer Much of this encounter note is an electronic superintendent stevedoring spoken language to printed text. Electronic superintendent stevedoring of the spoken language may permit errors. Although I have reviewed the note, some errors may still exist. Critical Care Critical Care Time Critical Care Time: No
[2023-12-14 13:04] VITALS: BP 116/76; PULSE 80; RESP 20; TEMP 36.7; O2SAT 96
== END 2023-12-14 13:26 | disposition home or self-care (01) ==
LOC: UTC 11:05 → ER 11:24
PROVIDERS: Emergency Provider Emergency Medicine
DX: L98.9 Disorder of the skin and subcutaneous tissue, unspecified (principal); I69.30 Unspecified sequelae of cerebral infarction; N31.9 Neuromuscular dysfunction of bladder, unspecified; Z86.19 Personal history of other infectious and parasitic diseases
CPT/HCPCS: 36415; 80053; 83605; 85025; 87040; 99283

== ENCOUNTER 2024-01-01 08:52 | Emergency (ER) | payer MEDICARE, SELFPAY ==
[2024-01-01] VITALS (7 sets, daily range): BP systolic 137–182; BP diastolic 71–100; PULSE 62–69; RESP 13–20; TEMP 36.7–36.8; O2SAT 96–97; BMI 22.3
--- NOTE | 2024-01-01 09:00 | PC.NURSE ---
family at BS
--- NOTE | 2024-01-01 09:25 | HMH.EDGENADL ---
Discharge Plan Disposition Patient Disposition: Home, Self-Care Prescriptions Prescriptions: No Action amoxicillin-pot clavulanate 875-125 mg Tablet 1 tab PO Q12H Qty: 20 0RF mupirocin 2 % ointment 1 applic topical BID 5 Days Qty: 22 0RF Referrals Follow up/Referrals: Provider,Referral, [Primary Care Provider] - See instructions Activity Restrictions/Add. Instructions Additional Instructions/Restrictions: Wound management per customer resolution specialist and home health per social work/health care analyst. No evidence of any infection. Please follow-up with primary care doctor as previously instructed. Clinical Impressions Clinical Impression: Peristomal dermatitis Instructions Patient Instructions: DI for Skin Abscess Discharge ED Provider: Alem Gonsalez General Adult HPI General Chief complaint: Skin/Abscess/Foreign Body Stated complaint: skin abcess Time Seen by Provider: 01/01/24 08:57 History of Present Illness HPI narrative: Is a 78-year-old male with a history of a stroke who has neurogenic bladder indwelling suprapubic Siddiqui catheter also had a bowel obstruction at the end of last year having a colostomy. Wound management has been going okay per the family up until about a week ago. At which point there was severe inflammatory change in the surrounding tissue. They have been aggressively doing their best with wound management including topical powders that they have been given paste's applying Desitin to the areas that are inflamed also has been on some antibiotics without any improvement and they are presenting today with worsening inflammatory changes. Patient came in by EMS as they had no other way to transport the patient. Patient was recently in urgent treatment clinic and in our emergency department with labs and workup which were largely unremarkable nonactionable. Related Data Previous Rx's Medication Instructions Recorded amoxicillin 875 mg-potassium 1 tab PO Q12H #20 tabs 05/08/23 clavulanate 125 mg tablet mupirocin 2 % topical ointment 1 applic topical BID 5 days #22 12/14/23 grams Allergies Allergy/AdvReac Type Severity Reaction Status Date / Time No Known Allergies Allergy Verified 05/01/18 09:12 [facility] Disclaimer: The information contained in this section may have been updated after the patient was seen, as this information can be updated by other users. Medical History (Updated 01/01/24 @ 09:34 by Alem Gonsalez MD) MRSA (methicillin resistant Staphylococcus aureus) septicemia Pseudomonas urinary tract infection Social History Smoking Status: Never smoker alcohol intake: never current occupational status: disabled Travel in the last 8 weeks: None household members: spouse housing: house current occupational exposures/hazards: No caffeine: Yes ROS Obtained: Yes All systems reviewed & no additional complaints except as documented Physical Exam General General appearance: alert and in no apparent distress Respiratory Respiratory exam: Present normal lung sounds bilaterally Cardiovascular Cardiovascular exam: Present regular rate Abdominal Exam Abdominal exam: Present other (Patient has a 10 x 10 cm area of significant and severe peristomal dermatitis and superficial inflammatory changes without ulceration no purulent drainage) Neurological Exam Neurological exam: Present alert and oriented X3 Medical Decision Making Phi Inquiry Pt receiving controlled substance: No Vital Signs: 01/01/24 08:53 01/01/24 10:00 01/01/24 10:30 Temperature 98.3 F Temperature Source Oral Pulse Rate 67 62 Pulse Rate [Left Radial] 67 Respiratory Rate 20 Blood Pressure 140/87 137/71 Blood Pressure [Right Arm] 173/100 H Blood Pressure Mean 104 102 Blood Pressure Mean [Right Arm] 124 02 Sat by Pulse Oximetry 96 96 97 Oxygen Delivery Method Room Air Room Air Room Air Medical Decision Narrative: 78-year-old male presents as a bounce back to the emergency department after being here just a few days ago. He is a very complicated patient family's been doing an excellent job of attempting to care for him from a nursing standpoint which has been intensive at home. Unfortunately he has severe dermatitis in his peristomal location and has very loose stool that is been causing skin breakdown. Every time that they are able to get wound management applied further stool contaminates the area and with any type of cleaning it breaks the skin or the superficial tissue down further. Also the patient has had some perineal skin breakdown as well. Overall patient's nursing availability at home is not adequate. I have no suspicion that family is neglecting him in any way they are in fact doing an excellent job caring for him but he continues to have ongoing insult to this severe dermatitis both with his right contracted arm resting on this area as well as the ongoing loose stools And inability for them to be able to keep an ostomy bag on this right now due to the inflammation. I will discuss the case with our case management team to see if there is any type of wound management or home health that could be offered beds more intensive than what they are currently getting. This does not appear to be an infected acutely and I do not believe that antibiotics will change any management. It is possible that a topical antifungal agent may be helpful. Social work and wound care will be consulted to see if there is anything in an outpatient setting that can be done. Reassessment 1132 after extensive discussion with our case resource manager/social scientist we were able to have a discussion with family regarding home health which should be 2 to 3 days a week which they are okay with. Unlikely we are able to get them to a alf facility at the moment. We also consulted wound care here in the hospital who showed the family how to do wound care at home as well as will be discussing with the family how to direct home health to be more helpful. Patient was discharged in stable condition. Critical Care Critical Care Time Critical Care Time: No
--- NOTE | 2024-01-01 09:46 | SW/DCPLANNER ---
I spoke w/ patient and his family regarding discharge plans in ED. Per patient's family he is receiving once a month home health services for cath care from [facility]. Per MD patient is now requiring wound care as well. Patient/family are NOT interested in placement at this time. Patient's family did express an interest in [facility] but I did discuss that this would not be a viable option due to patient being at baseline and only requiring wound care. Patient's is interested in returning home w/ patient and resuming home health services. I spoke w/ Kiera at [facility]: patient is actively receiving services and w/ new orders they would be able to provide care 2-3 times a week. Wound care has been consulted in ED and I will follow up once this is completed.
--- NOTE | 2024-01-01 09:53 | PC.NURSE ---
waiting wound care to see pt
--- NOTE | 2024-01-01 11:56 | PC.NURSE ---
family at BS
--- NOTE | 2024-01-01 13:03 | HMH.PTWOUND ---
Rehab Inpt Wound Evaluation Rehab IP Wound Evaluation Start: 01/01/24 11:05 Freq: ONCE Status: Discharge Protocol: Document 01/01/24 12:52 PHORNE (Rec: 01/01/24 13:03 PHORBRANDON Laptop) Rehab PT Wound Assessment Subjective Subjective 78 yowm who presents to ED with peristomal wound after colostomy ~ 6 mos ago. He has PMH of history of a stroke who has neurogenic bladder indwelling suprapubic Siddiqui catheter also had a bowel obstruction at the end of last year having a colostomy. He presents as essentially non- verbal and all history was provided by daughter at bedside. She reports he has frequent liquid stools which irritate his skin and he uses a one piece colostomy bag that he frequently pulls off, no matter how much paste we use. He has not had a coloctomy bag in place for several days due to the surrounding skin irritation. Wound Left Abdomen Wound Type peristomal wound Is This a Chronic Wound Yes Wound Length (cm) 8.2 Wound Width (cm) 11.4 Wound Depth (cm) 0.1 Wound Bed Appearance [place] [facility] Description Well Defined Wound Topical Solution/Irrigant Saline Irrigant Primary Dressing Hydrocolloid Wound Debridement Method Gauze,Mechanical Wound Debridement Amount of Tissue Minimal Removed Dressing Change Patient Tolerance Tolerated Well Plan/Recommendation Comment Pt family instructed on using hydrocolloid sheet under the colostomy appliance in order to prevent further skin irritation and allow wound healing. Situation is difficult due to pt not being able to follow commands and pulling at his colostomy bag. Recommend further home health wound care to assist. Eval Complexity Eval Charge Codes 76929 - High Complexity PHYSICIAN CERTIFICATION: I certify the specified therapy services for Aguilar Herzog are required, authorized, and reviewed every 30 days.
== END 2024-01-01 12:42 | disposition home or self-care (01) ==
PROVIDERS: Emergency Provider Student in an Organized Health Care Education/Training Program
DX: L24.B3 Irritant contact dermatitis related to fecal or urinary stoma or fistula (principal); Z87.19 Personal history of other diseases of the digestive system; Z93.3 Colostomy status; N31.9 Neuromuscular dysfunction of bladder, unspecified; Z96.0 Presence of urogenital implants
CPT/HCPCS: 99283

== ENCOUNTER 2024-09-24 12:06 | Emergency (ER) | payer MEDICARE, SELFPAY ==
[2024-09-24 12:05] VITALS: BP 135/89; PULSE 93; RESP 18; TEMP 36.6; O2SAT 97; BMI 25.0
--- NOTE | 2024-09-24 12:06 | ED_ITS ---
Discharge Plan Disposition Patient Disposition: Home, Self-Care Condition: Good Prescriptions Prescriptions: No Action amoxicillin-pot clavulanate 875-125 mg Tablet 1 tab PO Q12H Qty: 20 0RF mupirocin 2 % ointment 1 applic topical BID 5 Days Qty: 22 0RF Referrals Follow up/Referrals: Dileep Gibson MD [Primary Care Provider] - See instructions Aj Oconnor DO [Staff Physician] - See instructions Activity Restrictions/Add. Instructions Additional Instructions/Restrictions: Please schedule follow-up with Dr. Oconnor of orthopedics for hisModerately displaced intertrochanteric right femoral fracture . I would continue giving Tylenol alternating with Motrin for acute pain however if he has any worsening signs or symptoms please return to the ER as needed. Clinical Impressions Clinical Impression: Closed intertrochanteric fracture of femur Qualifiers: Encounter type: initial encounter Fracture alignment: displaced Laterality: r ight Qualified Code(s): S72.141A - Displaced intertrochanteric fracture of right femur, initial encounter for closed fracture Print Language Print Language: Kosovan Discharge ED Provider: Shlomo Burrell General Adult HPI <LOUIE Vo - Last Filed: 09/24/24 18:18> General Chief complaint: Fall Stated complaint: Fall/RT hip pain Time Seen by Provider: 09/24/24 12:06 History of Present Illness HPI narrative: Patient presents for evaluation of a fall. Patient's family arrived to give most of the history as patient is nonverbal to her previous stroke and he is bedbound and total care. He has a PEG tube and suprapubic catheter. 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 He sleeps in a hospital bed and they got a new mattress that is much higher than the old one and the bed rails do not fully prevent him from getting out of bed. They state approximately a week ago they woke up and found him on the floor on his hands and knees. They are unsure what time fall happened. They report that the height was approximately 2 feet. He suffered an abrasion to his right knee But essentially has been normal otherwise. They had a visiting nurse come today who felt like he might have a right hip fracture after her visit so family brought him to the ER for evaluation. They deny chest pain change in mental status shortness of breath fever hemoptysis hematochezia melena. He has tolerated being in the wheelchair at home. Related Data Previous Rx's ?Medication ?Instructions ?Recorded amoxicillin 875 mg-potassium 1 tab PO Q12H #20 tabs 05/08/23 clavulanate 125 mg tablet mupirocin 2 % topical ointment 1 applic topical BID 5 days #22 12/14/23 grams Allergies Allergy/AdvReac Type Severity Reaction Status Date / Time No Known Allergies Allergy Verified 05/01/18 09:12 PFS <LOUIE Vo - Last Filed: 09/24/24 18:18> [facility] Disclaimer: The information contained in this section may have been updated after the patient was seen, as this information can be updated by other users. Medical History (Updated 09/24/24 @ 15:42 by LOUIE Vo) MRSA (methicillin resistant Staphylococcus aureus) septicemia Pseudomonas urinary tract infection Social History Smoking Status: Unknown if ever smoked alcohol intake: never current occupational status: disabled Travel in the last 8 weeks: None household members: spouse housing: house current occupational exposures/hazards: No caffeine: Yes Have you lived/traveled outside [place] in past 30 days?: No Contact w/someone who lives/traveled outside US past 30 days?: No Exposure to someone with infectious disease in past 14 days?: No Do you have a fever (greater than 100.4 F or 38 C)?: No Have you tested positive for COVID-19: No Exposed to someone with COVID-19 in past 14 days?: No Do you have a sore throat?: No Do you have a cough?: No Do you have any weakness?: No Do you have any diarrhea?: No Are you experiencing any unusual bleeding?: No Do you have any muscle aches/pain?: No Do you have any abdominal pain?: No Are you experiencing loss of taste or smell?: No Other Medical History Have you received the Flu Vaccine for this season: No Have you received the Pneumonia Vaccine: No <LOUIE Vo - Last Filed: 09/24/24 18:18> ROS Obtained: Yes Systems reviewed as appropriate & no additional complaints except as documented Physical Exam <LOUIE Vo - Last Filed: 09/24/24 18:18> General General appearance: in no apparent distress Respiratory Respiratory exam: Present normal lung sounds bilaterally Cardiovascular Cardiovascular exam: Present regular rate Neurological Exam Neurological exam: Present alert (Patient appears to be alert and follows some commands and family reports this is his normal baseline); Absent oriented X3 Medical Decision Making <LOUIE Vo - Last Filed: 09/24/24 18:18> Medical Records Medical records reviewed: Yes I reviewed the patient's medical records. Screening: Per USPSTF and CDC recommendations, given the prevalence of disease in our region, it is our hospital?s policy to screen for HIV and viral Hepatitis for all patients aged 18 and over and those with ongoing risk factors. Phi Inquiry Pt receiving controlled substance: No Vital Signs: 09/24/24 12:05 09/24/24 12:30 09/24/24 14:30 Temperature 97.9 F Temperature Source Oral Pulse Rate 100 H 80 Pulse Rate [Radial] 93 H Respiratory Rate 18 Blood Pressure 127/86 117/79 Blood Pressure [Right Arm] 135/89 Blood Pressure Mean 107 91 Blood Pressure Mean [Right Arm] 104 Blood Pressure Source [Right Arm] Automatic Cuff Blood Pressure Position [Right Arm] Sitting 02 Sat by Pulse Oximetry 97 96 95 Oxygen Delivery Method Room Air Room Air Room Air 09/24/24 15:00 09/24/24 15:30 09/24/24 16:13 Temperature 98.0 F Temperature Source Pulse Rate 80 80 74 Pulse Rate [Radial] Respiratory Rate 16 Blood Pressure 112/79 120/79 143/85 H Blood Pressure [Right Arm] Blood Pressure Mean 90 95 Blood Pressure Mean [Right Arm] Blood Pressure Source [Right Arm] Blood Pressure Position [Right Arm] 02 Sat by Pulse Oximetry 96 96 Oxygen Delivery Method Room Air Room Air Lab Data Lab results reviewed: Yes I reviewed the patient's lab results. Lab Results 09/24/24 12:20: WBC 13.3 H, RBC 4.10 L, Hgb 12.2 L, Hct 37.5 L, MCV 91.5, MCH 29.8, MCHC 32.5, RDW 14.6, Plt Count 217, MPV 10.0, Neut % (Auto) 82.9 H, Lymph % (Auto) 8.6 L, [place] % (Auto) 5.8, Eos % (Auto) 0.9, Baso % (Auto) 0.2, Neut # (Auto) 11.0 H, Lymph # (Auto) 1.2, [place] # (Auto) 0.8, Eos # (Auto) 0.1, Baso # (Auto) 0.0, PT 9.9, INR 0.89 L, Sodium 135 L, Potassium 4.9, Chloride 103, Carbon Dioxide 26, Anion Gap 10.9, BUN 20, Creatinine 0.60 L, Estimated Creat Clear 72, Estimated GFR 130, Est GFR ( Amer) 158, Glucose 114 H, Calcium 8.5, Total Bilirubin 1.1, AST 43, ALT 40, Alkaline Phosphatase 71, Total Protein 6.4, Albumin 3.7, Globulin 2.7, Albumin/Globulin Ratio 1.4, HCV Ab BRE w/Rflx PCR Qn Reactive, HIV Ag/Ab Combo Qual Negative 09/24/24 12:20 09/24/24 12:20 Orders (Tests/Meds): ED MEDICATIONS Discontinued Medications Generic Name Dose Route Start Last Admin Trade Name Freq PRN Reason Stop Dose Admin Acetaminophen 1,000 mg 09/24/24 15:58 09/24/24 16:03 Acetaminophen 500mg Tab PO 09/24/24 15:59 1,000 mg ONCE ONE Administration Diphenhydramine HCl 50 mg 09/24/24 13:21 09/24/24 13:25 Diphenhydramine 50mg/Ml Vial IV 09/24/24 13:22 50 mg ONCE ONE Administration Iopamidol 100 ml 09/24/24 13:59 09/24/24 14:02 Iopamidol-370 (76%);100ml Bottle IV 09/24/24 14:00 100 ml ONCE ONE Administration Iopamidol 40 ml 09/24/24 14:00 09/24/24 14:02 Iopamidol-370 (76%);100ml Bottle IV 09/24/24 14:01 40 ml ONCE ONE Administration Sodium Chloride 40 ml 09/24/24 13:59 09/24/24 14:02 0.9 % Sodium Chloride 50 Ml Vial IV 09/24/24 14:00 40 ml ONCE ONE Administration Sodium Chloride 40 ml 09/24/24 14:00 09/24/24 14:02 0.9 % Sodium Chloride 50 Ml Vial IV 09/24/24 14:01 40 ml ONCE ONE Administration Sodium Chloride 10 ml 09/24/24 14:00 09/24/24 14:02 Sodium Chloride 0.9% 10ml Syr (Rad Only) IV 09/24/24 14:01 10 ml ONCE ONE Administration ORDERS Category Date Time Status CT angio abdomen pelvis Stat Cat Scan 09/24/24 12:[address] angio chest - dissection Stat Cat Scan 09/24/24 12:[address] angio head Stat Cat Scan 09/24/24 12:[address] angio neck Stat Cat Scan 09/24/24 12:[address] bony pelvis Stat Cat Scan 09/24/24 12:[address] cervical spine wo con Stat Cat Scan 09/24/24 12:[address] head/brain wo con Stat Cat Scan 09/24/24 12:[address] lumbar spine wo con Stat Cat Scan 09/24/24 12:[address] thoracic spine wo con Stat Cat Scan 09/24/24 12:25 Completed XR knee LT 2V Stat Exams 09/24/24 12:24 Completed XR knee RT 2V Stat Exams 09/24/24 12:24 Completed XR pelvis 1-2V Stat Exams 09/24/24 13:37 Completed CBC w/Auto Diff [Complete Blood Count Auto Diff] Stat Lab 09/24/24 12:20 Completed CMP [Comprehensive Metabolic Panel] Stat Lab 09/24/24 12:20 Completed HCV RNA PCR, Quant Stat Lab 09/24/24 12:20 Received HIV Combo Stat Lab 09/24/24 12:20 Completed Hepatitis C Ab Qual. W/ RFX Stat Lab 09/24/24 12:20 Completed INR [Prothrombin Time INR] Stat Lab 09/24/24 12:20 Completed Medical Decision Narrative: In summary patient is a 79-year-old male who presents to the emergency department for evaluation of a fall out of bed a week ago. Patient is hemodynamically stable upon arrival, afebrile. Physical exam is remarkable for likely ill-appearing 79-year-old gentleman who is awake and interactive but cannot communicate verbally. He does follow commands to a large extent but at baseline is nonverbal is flaccid on his right side has bilateral knee contractures. The right leg is neglected but he does move his right lower extremity. An attempted evaluation of the right lower extremity for range of motion felt a bony crunch thus I did not not examine it further. I examined the patient's back which shows no evidence of trauma, he does have areas of previous skin decubitus that have now healed. Patient has diverting colostomy as well as a suprapubic catheter. Both sites appear to be normal and the stoma is pink. He has no abdominal tenderness to exam breath sounds are clear and equal bilaterally to the bases. He has no bony deformities other than the one mentioned at the right hip. He is neurovascularly intact distally with good pulses. He has no dependent edema noted.. Differential diagnosis includes hip fracture versus spine fracture versus vascular injury versus head bleed versus skull fracture etc. Initial workup will be conducted with ED trauma scans plain films of the knees. Initial interventions were considered however patient currently has no intervenable issues and despite the potential hip fracture does not seem to respond to painful stimuli. Family states that he has no pain sensation on his right side. Initial workup reviewed by me there is a white count of 13.3 hemoglobin and hematocrit 12.2 and 37.5 respectively with an absolute neutrophil count of 11.0, INR 0.89, sodium 135 creatinine 0.60 glucose 114 and remainder of his hematologic labs are nonactionable. My informal interpretation of his ED trauma scans shows only a mildly displaced right intertrochanteric femur fracture.. I then had a shared decision making discussion with the family regarding the patient's MAY their wishes the resources. As the patient does not appear to have any discomfort with the fracture, he is a high risk surgical candidate both from the family's assessment as well as his multiple comorbidities except in the setting of uncontrolled pain which he does not appear to have a week after his injury. I did offer them surgical consultation and admission although he would be unlikely to participate in any type of meaningful rehab and in the main benefit of surgery would be pain control. Also I had interactive discussion with Dr. Oconnor regarding patient's MAY and he also concurred that intractable pain would be a reason for repair but and lieu of that as patient is nonambulatory and requires total care the risk may outweigh the benefits but it would be at the family's discretion. Presented with these options, via patient directed decision making and discharge family felt that they could comfortably meet his needs at home and as he did not appear to be in pain and have any discomfort they elected to take the patient home with close follow-up as an outpatient with both his PCP and orthopedics. Thus patient is appropriate for discharge with referrals to both Dr. Oconnor and back to his PCP with strict return precautions <Shlomo Burrell MD - Last Filed: 09/25/24 12:23> Vital Signs: 09/24/24 12:05 09/24/24 12:30 09/24/24 14:30 Temperature 97.9 F Temperature Source Oral Pulse Rate 100 H 80 Pulse Rate [Radial] 93 H Respiratory Rate 18 Blood Pressure 127/86 117/79 Blood Pressure [Right Arm] 135/89 Blood Pressure Mean 107 91 Blood Pressure Mean [Right Arm] 104 Blood Pressure Source [Right Arm] Automatic Cuff Blood Pressure Position [Right Arm] Sitting 02 Sat by Pulse Oximetry 97 96 95 Oxygen Delivery Method Room Air Room Air Room Air 09/24/24 15:00 09/24/24 15:30 09/24/24 16:13 Temperature 98.0 F Temperature Source Pulse Rate 80 80 74 Pulse Rate [Radial] Respiratory Rate 16 Blood Pressure 112/79 120/79 143/85 H Blood Pressure [Right Arm] Blood Pressure Mean 90 95 Blood Pressure Mean [Right Arm] Blood Pressure Source [Right Arm] Blood Pressure Position [Right Arm] 02 Sat by Pulse Oximetry 96 96 Oxygen Delivery Method Room Air Room Air Lab Data Lab Results 09/24/24 12:20: WBC 13.3 H, RBC 4.10 L, Hgb 12.2 L, Hct 37.5 L, MCV 91.5, MCH 29.8, MCHC 32.5, RDW 14.6, Plt Count 217, MPV 10.0, Neut % (Auto) 82.9 H, Lymph % (Auto) 8.6 L, [place] % (Auto) 5.8, Eos % (Auto) 0.9, Baso % (Auto) 0.2, Neut # (Auto) 11.0 H, Lymph # (Auto) 1.2, [place] # (Auto) 0.8, Eos # (Auto) 0.1, Baso # (Auto) 0.0, PT 9.9, INR 0.89 L, Sodium 135 L, Potassium 4.9, Chloride 103, Carbon Dioxide 26, Anion Gap 10.9, BUN 20, Creatinine 0.60 L, Estimated Creat Clear 72, Estimated GFR 130, Est GFR ( Amer) 158, Glucose 114 H, Calcium 8.5, Total Bilirubin 1.1, AST 43, ALT 40, Alkaline Phosphatase 71, Total Protein 6.4, Albumin 3.7, Globulin 2.7, Albumin/Globulin Ratio 1.4, HCV Ab BRE w/Rflx PCR Qn Reactive, HIV Ag/Ab Combo Qual Negative Orders (Tests/Meds): ED MEDICATIONS Discontinued Medications Generic Name Dose Route Start Last Admin Trade Name Freq PRN Reason Stop Dose Admin Acetaminophen 1,000 mg 09/24/24 15:58 09/24/24 16:03 Acetaminophen 500mg Tab PO 09/24/24 15:59 1,000 mg ONCE ONE Administration Diphenhydramine HCl 50 mg 09/24/24 13:21 09/24/24 13:25 Diphenhydramine 50mg/Ml Vial IV 09/24/24 13:22 50 mg ONCE ONE Administration Iopamidol 100 ml 09/24/24 13:59 09/24/24 14:02 Iopamidol-370 (76%);100ml Bottle IV 09/24/24 14:00 100 ml ONCE ONE Administration Iopamidol 40 ml 09/24/24 14:00 09/24/24 14:02 Iopamidol-370 (76%);100ml Bottle IV 09/24/24 14:01 40 ml ONCE ONE Administration Sodium Chloride 40 ml 09/24/24 13:59 09/24/24 14:02 0.9 % Sodium Chloride 50 Ml Vial IV 09/24/24 14:00 40 ml ONCE ONE Administration Sodium Chloride 40 ml 09/24/24 14:00 09/24/24 14:02 0.9 % Sodium Chloride 50 Ml Vial IV 09/24/24 14:01 40 ml ONCE ONE Administration Sodium Chloride 10 ml 09/24/24 14:00 09/24/24 14:02 Sodium Chloride 0.9% 10ml Syr (Rad Only) IV 09/24/24 14:01 10 ml ONCE ONE Administration ORDERS Category Date Time Status CT angio abdomen pelvis Stat Cat Scan 09/24/24 12:[address] angio chest - dissection Stat Cat Scan 09/24/24 12:[address] angio head Stat Cat Scan 09/24/24 12:[address] angio neck Stat Cat Scan 09/24/24 12:[address] bony pelvis Stat Cat Scan 09/24/24 12:[address] cervical spine wo con Stat Cat Scan 09/24/24 12:[address] head/brain wo con Stat Cat Scan 09/24/24 12:[address] lumbar spine wo con Stat Cat Scan 09/24/24 12:[address] thoracic spine wo con Stat Cat Scan 09/24/24 12:25 Completed XR knee LT 2V Stat Exams 09/24/24 12:24 Completed XR knee RT 2V Stat Exams 09/24/24 12:24 Completed XR pelvis 1-2V Stat Exams 09/24/24 13:37 Completed CBC w/Auto Diff [Complete Blood Count Auto Diff] Stat Lab 09/24/24 12:20 Completed CMP [Comprehensive Metabolic Panel] Stat Lab 09/24/24 12:20 Completed HCV RNA PCR, Quant Stat Lab 09/24/24 12:20 Received HIV Combo Stat Lab 09/24/24 12:20 Completed Hepatitis C Ab Qual. W/ RFX Stat Lab 09/24/24 12:20 Completed INR [Prothrombin Time INR] Stat Lab 09/24/24 12:20 Completed Medical Decision Narrative: In summary patient is a 79-year-old male who presents to the emergency department for evaluation of a fall out of bed a week ago. Patient is hemodynamically stable upon arrival, afebrile. Physical exam is remarkable for likely ill-appearing 79-year-old gentleman who is awake and interactive but cannot communicate verbally. He does follow commands to a large extent but at baseline is nonverbal is flaccid on his right side has bilateral knee contractures. The right leg is neglected but he does move his right lower extremity. An attempted evaluation of the right lower extremity for range of motion felt a bony crunch thus I did not not examine it further. I examined the patient's back which shows no evidence of trauma, he does have areas of previous skin decubitus that have now healed. Patient has diverting colostomy as well as a suprapubic catheter. Both sites appear to be normal and the stoma is pink. He has no abdominal tenderness to exam breath sounds are clear and equal bilaterally to the bases. He has no bony deformities other than the one mentioned at the right hip. He is neurovascularly intact distally with good pulses. He has no dependent edema noted.. Differential diagnosis includes hip fracture versus spine fracture versus vascular injury versus head bleed versus skull fracture etc. Initial workup will be conducted with ED trauma scans plain films of the knees. Initial interventions were considered however patient currently has no intervenable issues and despite the potential hip fracture does not seem to respond to painful stimuli. Family states that he has no pain sensation on his right side. Initial workup reviewed by me there is a white count of 13.3 hemoglobin and hematocrit 12.2 and 37.5 respectively with an absolute neutrophil count of 11.0, INR 0.89, sodium 135 creatinine 0.60 glucose 114 and remainder of his hematologic labs are nonactionable. My informal interpretation of his ED trauma scans shows only a mildly displaced right intertrochanteric femur fracture.. I then had a shared decision making discussion with the family regarding the patient's MAY their wishes the resources. As the patient does not appear to have any discomfort with the fracture, he is a high risk surgical candidate both from the family's assessment as well as his multiple comorbidities except in the setting of uncontrolled pain which he does not appear to have a week after his injury. I did offer them surgical consultation and admission although he would be unlikely to participate in any type of meaningful rehab and in the main benefit of surgery would be pain control. Also I had interactive discussion with Dr. Oconnor regarding patient's MAY and he also concurred that intractable pain would be a reason for repair but and lieu of that as patient is nonambulatory and requires total care the risk may outweigh the benefits but it would be at the family's discretion. Presented with these options, via patient directed decision making and discharge family felt that they could comfortably meet his needs at home and as he did not appear to be in pain and have any discomfort they elected to take the patient home with close follow-up as an outpatient with both his PCP and orthopedics. Thus patient is appropriate for discharge with referrals to both Dr. Oconnor and back to his PCP with strict return precautions I was consulted by the JORDON, and we discussed the complexity of the problems being addressed. I approve the treatment and management plan for this patient's care in the emergency department, thus performing a substantive portion of the medical decision making. Shlomo Burrell MD Critical Care <LOUIE Vo - Last Filed: 09/24/24 18:18> Critical Care Time Critical Care Time: No
--- NOTE | 2024-09-24 12:24 | XR_ITS ---
FINAL REPORT CLINICAL HISTORY: Fell out of bed COMPARISON: None FINDINGS: RIGHT KNEE 3 views of the right knee were obtained. Exam is limited due to flexion position frontal view. There is no gross fracture. Osteopenia is noted. Visualized joint spaces are normally aligned. Soft tissues are unremarkable. IMPRESSION: Limited exam without gross fracture. Reviewed, Interpreted and Dictated by Oseas Morales MD Transcribed by Alexa Faulkner Authenticated and [facility]
--- NOTE | 2024-09-24 12:24 | XR_ITS ---
FINAL REPORT CLINICAL HISTORY: Fell out of bed COMPARISON: None FINDINGS: LEFT KNEE 3 views of the left knee were obtained. Exam is limited due to flexion position frontal view. There is no gross fracture. Osteopenia is noted. Visualized joint spaces are normally aligned. Soft tissues are unremarkable. IMPRESSION: Limited exam without gross fracture. Reviewed, Interpreted and Dictated by Oseas Morales MD Transcribed by Alexa Faulkner Authenticated and [facility]
--- NOTE | 2024-09-24 12:25 | CT_ITS ---
FINAL REPORT CLINICAL HISTORY: trauma, critical injury suspected FINDINGS: CT LUMBAR SPINE TECHNIQUE: Thin section axial CT with sagittal and coronal reconstructions This study was performed with techniques to keep radiation doses as low as reasonably achievable, (ALARA). Individualized dose reduction techniques using automated exposure control or adjustment of mA and/or kV according to the patient''s size were employed. FINDINGS: No fracture is present. There is advanced, diffuse degenerative disc disease. Mild levoscoliosis is seen. Alignment is otherwise normal. Sclerosis is noted of the right upper iliac bone which is nonspecific. Findings could be benign. However, metastatic disease not excluded. IMPRESSION: Negative CT evaluation of the lumbar spine for acute bony injury. Nonspecific sclerosis of the right upper iliac bone. If further assessment is desired, consider MRI or bone scan for further evaluation. Reviewed, Interpreted and Dictated by Oseas Morales MD Transcribed by Pati Bernal Authenticated and . [facility]
--- NOTE | 2024-09-24 12:25 | CT_ITS ---
FINAL REPORT TECHNIQUE: Thin section axial CT with contrast with multiplanar reconstruction This study was performed with techniques to keep radiation doses as low as reasonably achievable, (ALARA). Individualized dose reduction techniques using automated exposure control or adjustment of mA and/or kV according to the patient's size were employed. CLINICAL HISTORY: trauma, critical injury suspected COMPARISON: None FINDINGS: Thoracic aorta shows no dissection or aneurysm. No acute injury of the thoracic aorta is identified. No evidence of pneumothorax is seen. No rib fracture is identified. There are coarse linear densities in the lower lobes, which may represent scar or atelectasis. There is no significant pleural effusion. There is no significant pericardial effusion. No mediastinal or hilar adenopathy is present. IMPRESSION: Coarse linear densities in the lower lobes, scar or atelectasis. No acute injury or dissection of the thoracic aorta, no hemothorax, and no pneumothorax. Reviewed, Interpreted and Dictated by Oseas Morales MD Transcribed by Analia Kent Authenticated and [facility]
--- NOTE | 2024-09-24 12:25 | CT_ITS ---
FINAL REPORT TECHNIQUE: Axial imaging of the pelvis was obtained without contrast.This study was performed with techniques to keep radiation doses as low as reasonably achievable, (ALARA). Individualized dose reduction technique using automated exposure control or adjustment of mA and/or kV according to the patient's size were employed. CLINICAL HISTORY: trauma, critical injury suspected FINDINGS: There is sclerosis of the right iliac bone which is nonspecific. Findings could be neoplastic or benign. A comminuted, intertrochanteric right femoral fracture is seen. Left hip is intact. Bony pelvis is intact. IMPRESSION: Moderately displaced intertrochanteric right femoral fracture. Bony pelvis intact. Nonspecific sclerosis of the right iliac bone. This can be further evaluated with MRI or bone scan if clinically indicated. Reviewed, Interpreted and Dictated by Oseas Morales MD Transcribed by Pati Bernal Authenticated and [facility]
--- NOTE | 2024-09-24 12:25 | CT_ITS ---
FINAL REPORT CLINICAL HISTORY: trauma, critical injury suspected FINDINGS: Axial CT images of the thoracic spine were obtained without contrast. Sagittal and coronal reformatted images were also obtained. This study was performed with techniques to keep radiation doses as low as reasonably achievable (ALARA). Individualized dose reduction techniques using automated exposure control or adjustment of mA and/or kV according to the patient''s size were employed. There is no evidence of fracture. There is mild dextroscoliosis. Alignment is otherwise normal. There is moderate diffuse degenerative disc disease and spondylosis. Coarse linear densities are seen in the lower lobes of the lungs consistent with scarring. IMPRESSION: No fracture or acute bony abnormality. Reviewed, Interpreted and Dictated by Oseas Morales MD Transcribed by Pati Bernal Authenticated and [facility]
--- NOTE | 2024-09-24 12:25 | CT_ITS ---
FINAL REPORT CLINICAL HISTORY: trauma, critical injury suspected COMPARISON: None FINDINGS: CT NECK ANGIO, WITHOUT AND WITH CONTRAST TECHNIQUE: Thin section axial CT with contrast with multiplanar 3D MIP reconstruction. This study was performed with techniques to keep radiation doses as low as reasonably achievable, (ALARA). Individualized dose reduction techniques using automated exposure control or adjustment of mA and/or kV according to the patient's size were employed. NASCET criteria and technique was utilized during interpretation. FINDINGS: There is mild motion artifact which slightly limits overall image quality. Aortic arch: Arch shows no significant narrowing. Great vessel origins are widely patent. Right carotid: No significant stenosis is seen of the cervical common or internal carotid artery. Left carotid: No significant stenosis is seen of the cervical common or internal carotid artery. Vertebrals: The right vertebral artery is dominant. No significant stenosis is present. IMPRESSION: No significant stenosis of the cervical carotid arteries This study was performed using automated techniques to achieve radiation exposure as low as reasonably Reviewed, Interpreted and Dictated by Oseas Morales MD Transcribed by Analia Kent Authenticated and [facility]
--- NOTE | 2024-09-24 12:25 | CT_ITS ---
FINAL REPORT CLINICAL HISTORY: trauma, critical injury suspected COMPARISON: None FINDINGS: CTA HEAD TECHNIQUE: Thin section axial CT with contrast with 3D MIP reconstruction This study was performed with techniques to keep radiation doses as low as reasonably achievable, (ALARA). Individualized dose reduction techniques using automated exposure control or adjustment of mA and/or kV according to the patient's size were employed. FINDINGS: There is marked limitation of overall image quality secondary to motion artifact. No aneurysm is seen. Major intracranial vessels are patent without gross significant stenosis. . IMPRESSION: Limitation of overall image quality secondary to motion artifact. Grossly unremarkable MRA of the head. This study was performed using automated techniques to achieve radiation exposure as low as reasonably achievable Reviewed, Interpreted and Dictated by Oseas Morales MD Transcribed by Analia Kent Authenticated and [facility]
--- NOTE | 2024-09-24 12:25 | CT_ITS ---
FINAL REPORT TECHNIQUE: Thin section axial images were obtained through the abdomen and pelvis after contrast injection per CT angiogram protocol. Multiplanar reconstruction images were obtained from the axial data. This exam was performed with techniques to keep radiation dose as low as reasonably achievable. This includes automated exposure control, adjustment of the MA and KVP, and iterative reconstruction technique. CLINICAL HISTORY: trauma, critical injury suspected COMPARISON: None FINDINGS: CTA: No abdominal aortic aneurysm or aortic dissection. The celiac axis, superior mesenteric artery, and inferior mesenteric artery are patent without stenosis. The renal arteries are patent. The common iliac arteries and visualized portions of the internal and external iliac arteries are patent. No significant stenosis. Scattered vascular calcifications are identified without evidence of significant arterial stenosis. NONVASCULAR: The gallbladder is present. There are bilateral renal cysts, more prominent on the left side than the right. There is a cystic lesion in the tail of the pancreas measuring 10 mm in size. The solid abdominal organs are otherwise without acute abnormality. There is a central abdominal wall hernia that contains both large and small bowel, that measures 4.7 cm in diameter. A left colostomy is present. The GI tract is without acute abnormality. No hemoperitoneum or free fluid. No acute osseous abnormality. A suprapubic catheter is present in the bladder, which is decompressed. Surgical changes are noted in the pelvic bowel. IMPRESSION: No evidence of acute solid organ injury or hemoperitoneum. Reviewed, Interpreted and Dictated by Oseas Morales MD Transcribed by Analia Kent Authenticated and [facility]
--- NOTE | 2024-09-24 12:25 | CT_ITS ---
FINAL REPORT TECHNIQUE: Noncontrast exam This study was performed with techniques to keep radiation doses as low as reasonably achievable, (ALARA). Individualized dose reduction techniques using automated exposure control or adjustment of mA and/or kV according to the patient's size were employed. CLINICAL HISTORY: trauma, critical injury suspected COMPARISON: None FINDINGS: CT HEAD: There is severe limitation of overall image quality secondary to motion artifact. There are multiple large bilateral basal ganglia lacunar infarcts, more prominent on the left than on the right. Encephalomalacia is present in the right frontoparietal region consistent with a remote infarct. There is no gross hemorrhage. No mass effect is seen. Bone windows show no evidence of fracture. IMPRESSION: Severe degradation of image quality secondary to motion artifact. Multiple large basal ganglia lacunar infarcts greater on the left than on the right, and right frontoparietal encephalomalacia. No gross acute intracranial abnormality is identified. Reviewed, Interpreted and Dictated by Oseas Morales MD Transcribed by Analia Kent Authenticated and . [facility]
--- NOTE | 2024-09-24 12:25 | CT_ITS ---
FINAL REPORT TECHNIQUE: Thin section axial CT with sagittal reconstruction without contrast This study was performed with techniques to keep radiation doses as low as reasonably achievable, (ALARA). Individualized dose reduction techniques using automated exposure control or adjustment of mA and/or kV according to the patient''s size were employed. CLINICAL HISTORY: trauma, critical injury suspected FINDINGS: No fracture is seen. Alignment is normal. There is advanced diffuse degenerative disc disease. There is a lucent lesion of the posterior C3 vertebral body measuring 9 mm. This is of fat density and is likely benign such as a lipoma or hemangioma. There is moderate facet arthropathy. IMPRESSION: Degenerative changes without acute fracture. Reviewed, Interpreted and Dictated by Oseas Morales MD Transcribed by Pati Bernal Authenticated and [facility]
[2024-09-24 12:30] VITALS: BP 127/86; PULSE 100; O2SAT 96
[2024-09-24 12:34] LABS: Basophils % 0.2 % (0.1-2.0); Eosinophils # 0.1 K/mm3 (0.0-0.4); Eosinophils % 0.9 % (0.1-12.0); Hematocrit 37.5 % (42.0-52.0); Hemoglobin 12.2 g/dL (14.1-18.0); Lymphocytes # 1.2 K/mm3 (0.7-4.5); Lymphocytes % 8.6 % (10-50); Mean Corpuscular HGB Conc 32.5 g/dL (31.8-35.4); Mean Corpuscular Hemoglobin 29.8 pg (27.0-31.2); Mean Corpuscular Volume 91.5 fl (80-94); Monocytes # 0.8 K/mm3 (0.1-1.0); Monocytes % 5.8 % (1.7-9.3); Neutrophils % 82.9 % (37.0-80.0); Platelet Count 217 K/mm3 (142-424); Red Cell Distribution Width 14.6 % (11.5-17.5); White Blood Count 13.3 K/mm3 (4.8-10.8)
[2024-09-24 12:39] LABS: Albumin Level 3.7 g/dl (3.5-5.0); Chloride 103 mmol/L (98-107); Sodium 135 mmol/L (136-145)
[2024-09-24 12:40] LABS: Potassium 4.9 mmoL/L (3.5-5.1)
[2024-09-24 12:42] LABS: Alanine Aminotransferase 40 U/L (12-78); Albumin/Globulin Ratio 1.4 (1.1-1.8); Anion Gap 10.9 mEq/L (5-15); Aspartate Amino Transferase 43 U/L (17-59); Blood Urea Nitrogen 20 mg/dl (9-20); Carbon Dioxide 26 mmol/L (22.0-30.0); Creatinine Clearance Estimated 72 mL/min (50-200); Estimated Glomerular Filt Rate 130 ml/min (>60); GFR (African American) 158 ML/MIN (>60); Globulin 2.7 g/dL (1.3-3.2); Total Protein,Serum 6.4 g/dl (6.3-8.2)
[2024-09-24 12:43] LABS: Alkaline Phosphatase 71 U/L (38-126); Bilirubin,Total 1.1 mg/dl (0.2-1.3); Calcium 8.5 mg/dl (8.4-10.2); Glucose 114 mg/dl (74-100)
[2024-09-24] MEDS: diphenhydrAMINE 50MG/ML VIAL 50 MG IV (13:25)
--- NOTE | 2024-09-24 13:37 | XR_ITS ---
FINAL REPORT CLINICAL HISTORY: pain, fall from bed COMPARISON: None FINDINGS: SINGLE VIEW PELVIS: A single view of the pelvis was obtained. Exam is limited due to positioning. There is a questionable fracture of the right lesser trochanter. Recommend CT for further assessment. There is no evidence of subluxation or dislocation. The bony pelvis is intact. Soft tissues are unremarkable. IMPRESSION: Suboptimal exam. Consider CT correlation with attention to right intertrochanteric femur. Reviewed, Interpreted and Dictated by Oseas Morales MD Transcribed by Alexa Faulkner Authenticated and [facility]
[2024-09-24 13:45] LABS: HIV Combo NEGATIVE (Negative)
[2024-09-24 13:53] LABS: Hepatitis C Ab Qual. W/ RFX REACTIVE (Negative)
[2024-09-24 13:57] LABS: INR 0.89 (0.9-1.1); Prothrombin Time 9.9 seconds (9.2-12.1)
[2024-09-24] MEDS: IOPAMIDOL-370 (76%);100ML BOTTLE 100 ML IV (14:02)
[2024-09-24] MEDS: 0.9 % SODIUM CHLORIDE 50 ML VIAL 40 ML IV ×2 (14:02)
[2024-09-24] MEDS: SODIUM CHLORIDE 0.9% 10ML SYR (RAD ONLY) 10 ML IV (14:02)
[2024-09-24] MEDS: IOPAMIDOL-370 (76%);100ML BOTTLE 40 ML IV (14:02)
[2024-09-24 14:30] VITALS: BP 117/79; PULSE 80; O2SAT 95
[2024-09-24 15:00] VITALS: BP 112/79; PULSE 80; O2SAT 96
[2024-09-24 15:30] VITALS: BP 120/79; PULSE 80; O2SAT 96
--- NOTE | 2024-09-24 15:59 | PC.NURSE ---
I took the pt a pair off pants. Family denies any other needs. call stauffer in reach.
[2024-09-24] MEDS: ACETAMINOPHEN 500MG TAB 1000 MG PO (16:03)
[2024-09-24 16:13] VITALS: BP 143/85; PULSE 74; RESP 16; TEMP 36.7
== END 2024-09-24 16:14 | disposition home or self-care (01) ==
PROVIDERS: Physician Assistant; Emergency Provider Student in an Organized Health Care Education/Training Program; PCP Family Medicine
DX: S72.141A Displaced intertrochanteric fracture of right femur, initial encounter for closed fracture (principal); M25.551 Pain in right hip; W06.XXXA Fall from bed, initial encounter; Y93.89 Activity, other specified; Y92.003 Bedroom of unspecified non-institutional (private) residence as the place of occurrence of the external cause
CPT/HCPCS: 70450; 70496; 70498; 71275; 72125; 72128; 72131; 72170; 72192; 73560; 74174; 80053; 85025; 85610; 86803; 87389; 87522; 96374; 99285; J1200; Q9967